=== PATIENT | female | born 1955 | race Caucasian/White ===

== ENCOUNTER 2016-11-21 14:03 | Outpatient (CLI) | payer MEDICARE, OTHER ==
[~2016-11-21] VITALS: Ht 160 cm; Wt 81.0 kg
[~2016-11-21 14:03] MED LIST: ASP81TEC PO; ATEN100T88 PO; CHOL4PAC19 PO; CLON0.5T3 PO; CPR500T PO; FENO135C PO; FURO20TA4 PO; GEMF600T PO; LISI-552 PO; LVT.1T PO; MTR250T PO; NIFE90TA4 PO; OMEG-160 PO; OMEP20CA6 PO; ONDA4TAB11 PO; PARO30TA2 PO; POTA20TA15 PO; VNL75T PO
[2016-11-21] MEDS ORDERED: ATEN50TA PO (14:24)
[2016-11-21 14:31] VITALS: BP 129/87
[2016-11-21 15:02] LABS: BASOPHILS # (AUTO) 0.1 10^3/uL (0.0-0.1); BASOPHILS % (AUTO) 1 % (0-10); EOSINOPHILS # (AUTO) 0.1 10^3/uL (0.0-0.3); EOSINOPHILS % (AUTO) 3 % (0-10); LYMPHOCYTES # (AUTO) 1.8 X 10^3 (1.0-4.0); LYMPHOCYTES % (AUTO) 34 % (12-44); MEAN CORPUSCULAR HEMOGLOBIN 31 PG (25-34); MEAN CORPUSCULAR HGB CONC 34 G/DL (32-36); MEAN CORPUSCULAR VOLUME 92 FL (80-99); MEAN PLATELET VOLUME 10.1 FL (7.4-10.4); MONOCYTES # (AUTO) 0.6 X 10^3 (0.0-1.0); MONOCYTES % (AUTO) 11 % (0-12); NEUTROPHILS # (AUTO) 2.8 X 10^3 (1.8-7.8); NEUTROPHILS % (AUTO) 52 % (42-75); PLATELET COUNT 288 10^3/uL (130-400); RED BLOOD COUNT 4.21 10^6/uL (4.35-5.85); RED CELL DISTRIBUTION WIDTH 13.1 % (10.0-14.5); WHITE BLOOD COUNT 5.4 10^3/uL (4.3-11.0)
[2016-11-21 15:19] LABS: ANION GAP 10 MMOL/L (5-14); BLOOD UREA NITROGEN 18 MG/DL (7-18); BUN/CREATININE RATIO 22; CALCIUM 9.2 MG/DL (8.5-10.1); CARBON DIOXIDE 24 MMOL/L (21-32); CHLORIDE 107 MMOL/L (98-107); CREATININE SERUM 0.81 MG/DL (0.60-1.30); GFR ESTIMATED > 60; GLUCOSE 91 MG/DL (70-105); POTASSIUM 3.3 MMOL/L (3.6-5.0); SODIUM 141 MMOL/L (135-145)
== END 2016-11-21 15:00 ==
LOC: PREOP 14:03
PROVIDERS: ATTEND Obstetrics & Gynecology
DX: Z01.812 Encounter for preprocedural laboratory examination (principal); N81.10 Cystocele, unspecified; N39.46 Mixed incontinence; N93.9 Abnormal uterine and vaginal bleeding, unspecified
CPT/HCPCS: 36415; 80048; 85025; 87081

== ENCOUNTER 2016-11-24 10:17 | Day surgery (SDC) | payer MEDICARE ==
[~2016-11-24] VITALS: Ht 160 cm; Wt 81.0 kg
[~2016-11-24 10:17] MED LIST changes: +ATEN50TA PO
[2016-11-24] MEDS ORDERED: LACTATED RINGERS 1,000 ML IV ONE ×2 (10:58→13:21)
[2016-11-24] MEDS ORDERED: SEVOFLURANE (ULTANE) 15 ML INHAL SOLN ONE ×3 (10:58→13:58)
[2016-11-24] MEDS ORDERED: proPOfol 200 MG/20 ML (DIPRIVAN) VIAL IV ONE (10:58)
[2016-11-24] MEDS ORDERED: LIDOCAINE PF 2% 5 ML (XYLOCAINE) VIAL ONE (10:58)
[2016-11-24] MEDS ORDERED: fentaNYL INJECTION 100 MCG/2 ML AMP ONE ×3 (10:59→19:09)
[2016-11-24] MEDS ORDERED: MIDAZOLAM 2 MG/2 ML (VERSED) VIAL ONE (10:59)
[2016-11-24] MEDS ORDERED: ESTRADIOL VAGINAL CREAM 42.5 GM (ESTRACE) VG ONE (11:00)
[2016-11-24 11:10] VITALS: BP 136/86
[2016-11-24] MEDS ORDERED: LACTATED RINGERS 1,000 ML IV PRN (11:13)
[2016-11-24] MEDS ORDERED: ONDANSETRON 4 MG/2 ML (SDV) Z0FRAN IVP PRN ×2 (12:15→14:30)
[2016-11-24] MEDS ORDERED: BENZOCAINE/MENTHOL (DERMOPLAST) 56 ML CAN TP PRN (12:15)
[2016-11-24] MEDS ORDERED: WATER (STERILE) FOR INJ 10 ML BTL INJ ONE (12:15)
[2016-11-24] MEDS ORDERED: KETOROLAC 30 MG/ML VIAL IVP SCH (12:15)
[2016-11-24] MEDS ORDERED: ESTROGENS CONJ IV 25 MG/5 ML (PREMARIN) VIAL IVP ONE (12:15)
--- NOTE | 2016-11-24 12:15 | Progress Note-Post Operative ---
Post-Operative Progess Note Surgeon (s)/Flame Hardening Machine Operator (s) Surgeon KAIT HECK MD Flame Hardening Machine Operator: Meredith Lyons Pre-Operative Diagnosis VAGINAL PROLAPSE, CYSTOCELE Post-Operative Diagnosis signed Procedure & Operative Findings Date of Procedure 11/24/16 Procedure Performed/Findings anterior and posterior vaginal repairs with enterocele repair as well as sacrospinous ligament suspension, Dr. Palma performed a pubovaginal sling and cystoscopy Anesthesia Type GETA Estimated Blood Loss Estimated blood loss (mL): minimal Specimens/Packing Specimens Removed none Packing: Kerfranciscax KAIT Karimi MD Nov 24, 2016 12:15
[2016-11-24] MEDS ORDERED: LEVOFLOXACIN 250 MG/50 ML IVPB 50 ML ONE (12:36)
[2016-11-24] MEDS ORDERED: metroNIDAZOLE 500MG/100ML IVPB 100 ML ONE (12:37)
--- NOTE | 2016-11-24 12:40 | Progress Note-Post Operative ---
Post-Operative Progess Note Surgeon (s)/Soap Drier Operator (s) Surgeon AIEME DUBOIS MD Soap Drier Operator: MARIA R Pre-Operative Diagnosis VAGINAL PROLAPSE, CYSTOCELE, INCONTINENCE Post-Operative Diagnosis SAME Procedure & Operative Findings Date of Procedure 11/24/16 Procedure Performed/Findings PVS AND CYSTOSCOPY Anesthesia Type GENERAL Estimated Blood Loss Estimated blood loss (mL): NEGLIGIBLE Specimens/Packing Specimens Removed N/A Packing: Kerlix gaAIMEE Baltazar MD Nov 24, 2016 12:40 pm
[2016-11-24] MEDS ORDERED: ESTROGENS CONJ IV 25 MG/5 ML (PREMARIN) VIAL ONE (13:32)
[2016-11-24] MEDS ORDERED: WATER (STERILE) FOR INJECTION 10 ML ONE (13:32)
[2016-11-24] MEDS ORDERED: MEPERIDINE (DEMEROL) INJ 50 MG/ML IVP PRN (14:30)
[2016-11-24] MEDS ORDERED: fentaNYL INJECTION 100 MCG/2 ML AMP IVP PRN (14:30)
--- NOTE | 2016-11-24 14:43 | Progress Note-Pre Operative ---
Pre-Operative Progress Note H&P Reviewed The H&P was reviewed, patient examined and no changes noted. Date Seen by Provider: Nov 24, 2016 Time Seen by Provider: 12:56 Date H&P Reviewed: Nov 24, 2016 Time H&P Reviewed: 12:58 Pre-Operative Diagnosis: vaginal prolapse/stress and incontinence/rectocele/ enterocele KAIT HECK MD Nov 24, 2016 14:43
[2016-11-24] MEDS: morphine INJ 10 MG/ML 1ML (SYR OR VIAL) IVP PRN ×2 (14:52→14:57)
[2016-11-24 15:50] VITALS: BP 135/93
[2016-11-24] MEDS ORDERED: D5 LR IV SOLUTION 1,000 ML IV ONE (16:24)
[2016-11-24] MEDS: D5 LR IV SOLUTION 1,000 ML IV SCH (16:33)
[2016-11-24] MEDS: fentaNYL INJECTION 100 MCG/2 ML AMP IVP PRN ×2 (16:33→19:17)
[2016-11-24 20:23] VITALS: BP 119/68
[2016-11-24] MEDS: oxyCODONE/APAP 10/325MG (PERCOCET 10) TABLET PO PRN (22:12)
[2016-11-25] VITALS: BP 107/68
[2016-11-25] MEDS: KETOROLAC 30 MG/ML VIAL IVP SCH ×2 (00:05→05:34)
[2016-11-25] MEDS: D5 LR IV SOLUTION 1,000 ML IV SCH (00:13)
[2016-11-25 05:30] VITALS: BP 114/76
--- NOTE | 2016-11-25 06:36 | OPERATIVE REPORT ---
DATE OF SERVICE: 11/24/2016 PREOPERATIVE DIAGNOSIS: Vaginal prolapse and cystocele with stress incontinence. POSTOPERATIVE DIAGNOSIS: Vaginal prolapse and cystocele with stress incontinence. OPERATIVE PROCEDURE: Anterior and posterior vaginal repair with enterocele repair as well as sacrospinous ligament suspension with Dr. Angeles performing a pubovaginal sling and cystoscopy. OPERATIVE DESCRIPTION: With the patient in supine position under satisfactory general anesthesia, she was repositioned in the dorsal lithotomy position in the Gadiel stirrups and prepped and draped in the usual fashion for vaginal surgery. A weighted speculum was placed in the posterior fornix of the vagina. The anterior vaginal wall was grasped just distal to the midpoint. The vaginal wall was opened with Metzenbaum scissors for approximately 2.5 cm. The dissection was carried between the vagina and the bladder to the pubic rami bilaterally and then a suture of 2-0 Vicryl was placed in the endopelvic fascia elevating the bladder and lengthening urethra. At this point, Dr. Angeles assumed care of the patient for pubovaginal sling and cystoscopy. I remained to assist. Dr. Angeles completed the pubovaginal sling and the cystoscopy with normal findings per his report on the cystoscopy. He placed a Khan catheter in the urinary bladder and left it to dependent drainage and I resumed care of the patient. Redundant anterior vaginal wall muscularis and mucosa was removed sharply. The vaginal wall was then closed with a running locked suture of 2-0 Vicryl. Good support of the bladder and urethra were evident. The pelvic catheter remained to dependent drainage and it was draining clear yellow urine. Posterior repair was then effected by placing Jihan clamps on the perineum and the hymenal ring at 5 and 7 o'clock position. An inverted triangle of skin was removed from the perineal body using as the base of the triangle the two Jihan clamps. The apex was approximately 3 cm down on the perineal body and upright triangle was removed from the posterior vaginal floor using the same base with the apex approximately 3 cm up through the posterior vaginal floor. The rectovaginal space was entered sharply and dissected bluntly to the apex of the vagina. There was an enterocele that was reduced. Dissection was carried digitally over through the right rectal pillar to the right sacrospinous ligament and ischial spine. The [place] [employer] device was used to place two sutures of 2-0 Ethibond in the sacrospinous ligament approximately 2.5 and 3 cm medial to the ischial spine. Both arms of those sutures were brought out through the apex of the vaginal cuff and tagged and held long for tying later. The rectovaginal space was now obliterated with sutures of 2-0 Vicryl after first reducing the enterocele and then ligating with 2-0 Vicryl pursestring fashion. The perineal body was restored with additional sutures of 2-0 Vicryl. Digital rectal exam during the dissection and during the repair confirmed no stricture or stenosis of the rectum and no sutures in to or through the rectal mucosa. Redundant posterior vaginal muscularis mucosa was now removed sharply. The vaginal wall was closed with a running locked suture of 2-0 Vicryl. That closure was continued past the hymenal ring down on the perineal body and then back up to the subcu to the hymenal ring where the suture was tied. The sacrospinous ligament suspension sutures were now tied. As each was tied, the apex of the vagina was brought well back up into the pelvis. Those sutures were cut short. The vagina was filled with Estrace vaginal cream and a pack of Kerlix gauze was placed. The Khan catheter was left to dependent drainage. Digital rectal exam was repeating finding no sutures into it through the rectal mucosa. No stricture or stenosis of the rectum. Sponge and needle counts were correct. Estimated blood loss was between 50 and 100 mL. The patient tolerated the procedure well, now uneventfully awakened from general anesthesia and transferred to the recovery room in stable condition. Job ID: [id number] DocumentID: [id number] Dictated Date: 11/24/2016 14:22:55 Lockstitch Sleeve Setter Date: 11/25/2016 06:35:13 Dictated By: KAIT HECK MD
[2016-11-25] MEDS: ONDANSETRON 8 MG (ZOFRAN) ORAL DISSOLVE TAB PO PRN ×4 (06:52→19:24)
--- NOTE | 2016-11-25 07:23 | Progress Note-Standard ---
Standard Progress Note Progress Notes/Assess & Plan Date Seen by Provider: Nov 25, 2016 Time Seen by Provider: 07:22 Progress/Assessment & Plan this patient is without complaint except for some nausea that she has experienced only this morning. Patient has good pain control. She denies headache, shortness of breath, chest pain. Her Khan catheter removed at 6 a.m. and she has not voided as of yet Vital Signs Date Time Temp Pulse Resp B/P (MAP) Pulse Ox O2 Delivery O2 Flow Rate FiO2 11/25/16 05:30 96.5 62 18 114/76 98 Room Air 11/25/16 00:00 97.6 60 18 107/68 Room Air 11/24/16 20:23 98.2 85 18 119/68 92 Room Air 11/24/16 15:50 97.4 82 16 135/93 94 Room Air 11/24/16 15:22 98.0 11/24/16 15:22 98.0 11/24/16 15:22 98.0 11/24/16 15:15 98.0 11/24/16 14:57 98.0 11/24/16 14:52 98.0 11/24/16 11:10 97.7 58 18 136/86 98 Room Air Vital signs are stable. Patient is afebrile. Abdomen is benign Extremities show no clubbing cyanosis. There is no Homans sign. Pelvic exam is deferred assessment and plan is operative day number 1 doing well. Plan will be for discharge home when patient is ambulating, voiding, tolerating oral intake well , and pain is controlled with oral medication. Final Diagnosis vaginal prolapse/stress urinary incontinence KAIT HECK MD Nov 25, 2016 7:23 am
[2016-11-25] MEDS ORDERED: OXYC-465 PO (07:24)
[2016-11-25] MEDS ORDERED: IBUP-1780 PO (07:24)
[2016-11-25] MEDS ORDERED: DOCU100C37 PO (07:24)
--- NOTE | 2016-11-25 07:26 | Discharge Instructions ---
Discharge Instructions Discharge Medications New, Converted or Re-Newed RX: RX on Chart Patient Instructions Patient Instructions: as directed Return to The Hospital For: as directed Activity & Diet Discharge Diet: No Restrictions Activity as Tolerated: No Orders-Post D/C & Referrals Follow Up Appt: Call to make follow up appt. for patient in 4 weeks. Activity: Rest for 24 hours, than as tolerated. Please call in RX to patient pharmacy. Diet: As tolerated-Clear Liquids only if nauseated. Tomorrow, may shower or tub bathe as desired. No driving for 24 hours, no alcoholic beverages for 24 hours, and nothing per vagina (no tampons, douching, or intercourse) for 4 weeks. Patient to return to the clinic as soon as possible for: Temperature greater than 101F, Severe Pain, Foul discharge from incision or vagina, Excessive Bleeding (more than a period). KAIT HECK MD Nov 25, 2016 7:26 am
--- NOTE | 2016-11-25 07:32 | Progress Note-Post Operative ---
Post-Operative Progess Note Surgeon (s)/Drama Therapist (s) Surgeon KAIT HECK MD Drama Therapist: Meredith Lyons Pre-Operative Diagnosis vaginal prolapse/stress and incontinence/rectocele/enterocele Post-Operative Diagnosis same Procedure & Operative Findings Date of Procedure 11/25/16 Procedure Performed/Findings anterior and posterior vaginal repairs with enterocele repair as well as sacrospinous ligament suspension concurrent with pubovaginal sling and cystoscopy by Dr. Palma Anesthesia Type GETA Estimated Blood Loss Estimated blood loss (mL): between 50 and 100 cc Specimens/Packing Specimens Removed vaginal apex epidermal inclusion cyst Packing: Kerlix gaKAIT Ruelas MD Nov 25, 2016 7:32 am
[2016-11-25] MEDS: DOCUSATE SODIUM 100 MG (COLACE) CAP PO SCH ×2 (08:10→21:54)
[2016-11-25] MEDS: oxyCODONE/APAP 10/325MG (PERCOCET 10) TABLET PO PRN ×2 (08:10→15:05)
[2016-11-25 11:45] VITALS: BP 119/73
[2016-11-25] MEDS: IBUPROFEN 800 MG (MOTRIN) TAB PO SCH ×2 (12:39→21:54)
--- NOTE | 2016-11-25 13:08 | Anesthesia-General Post-Op ---
General Patient Condition Mental Status/LOC: Same as Preop Cardiovascular: Satisfactory Nausea/Vomiting: Present Respiratory: Satisfactory Pain: Controlled Complications: Absent Post Op Complications Complications None Follow Up Care/Instructions Patient Instructions None needed. Anesthesia/Patient Condition Patient Condition Patient is doing well, no complaints, stable vital signs, no apparent adverse anesthesia problems. No complications reported per nursing. DANNY REYES CRNA Nov 25, 2016 13:08
--- NOTE | 2016-11-25 14:25 | OPERATIVE REPORT ---
DATE OF SERVICE: 11/24/2016 PREOPERATIVE DIAGNOSIS ON MY PART: Urinary incontinence. POSTOPERATIVE DIAGNOSIS ON MY PART: Urinary incontinence. OPERATION PERFORMED: Pubovaginal sling and cystoscopy. SURGEON: Aimee Dubois MD VICE PRESIDENT OF CONTRACTS: Rell Johnson MD COMPLICATIONS: None. PROCEDURE: After Dr. Johnson performed the first part of the surgery that he would dictate, I went ahead and passed the pubovaginal sling on both sides using the described technique. Sling was sitting nicely under the mid urethra with no twisting, no tension, passage of a curved hemostat easily between it and the underlying tissue. I removed the catheter and performed cystoscopy to confirm the integrity of the bladder, urethral orifices, and the presence of the sling under the mid urethra. I left the bladder half full, removed the cystoscope, performed the manual Valsalva maneuver that was negative. I reinserted the Khan catheter and Dr. Johnson performed the rest of the surgery that he will dictate. ESTIMATED BLOOD LOSS ON MY PART: Negligible. Job ID: [id number] DocumentID: [id number] Dictated Date: 11/24/2016 13:36:41 Harness Fitter Date: 11/25/2016 04:12:31 Dictated By: AIMEE DUBOIS MD
[2016-11-25] MEDS ORDERED: D5 LR IV SOLUTION 1,000 ML IV ONE (16:15)
[2016-11-25] MEDS ORDERED: ONDANSETRON 4 MG/2 ML (SDV) Z0FRAN IVP ONE (16:15)
[2016-11-25 17:30] VITALS: BP 101/64
[2016-11-26] VITALS: BP 96/65
[2016-11-26 06:00] VITALS: BP 91/61
[2016-11-26] MEDS: KETOROLAC 30 MG/ML VIAL IVP SCH (08:18)
--- NOTE | 2016-11-26 08:21 | Progress Note-Standard ---
Standard Progress Note Progress Notes/Assess & Plan Date Seen by Provider: Nov 26, 2016 Time Seen by Provider: 08:19 Progress/Assessment & Plan this patient is without complaint except for some nausea that she has experienced only this morning. Patient has good pain control. She denies headache, shortness of breath, chest pain. Her Khan catheter removed at 6 a.m. and she has not voided as of yet Vital Signs Date Time Temp Pulse Resp B/P (MAP) Pulse Ox O2 Delivery O2 Flow Rate FiO2 11/25/16 05:30 96.5 62 18 114/76 98 Room Air 11/25/16 00:00 97.6 60 18 107/68 Room Air 11/24/16 20:23 98.2 85 18 119/68 92 Room Air 11/24/16 15:50 97.4 82 16 135/93 94 Room Air 11/24/16 15:22 98.0 11/24/16 15:22 98.0 11/24/16 15:22 98.0 11/24/16 15:15 98.0 11/24/16 14:57 98.0 11/24/16 14:52 98.0 11/24/16 11:10 97.7 58 18 136/86 98 Room Air Vital signs are stable. Patient is afebrile. Abdomen is benign Extremities show no clubbing cyanosis. There is no Homans sign. Pelvic exam is deferred assessment and plan is operative day number 1 doing well. Plan will be for discharge home when patient is ambulating, voiding, tolerating oral intake well , and pain is controlled with oral medication. November 26, 2016 Patient is without complaint. She is ambulating, voiding, tolerating by mouth well, has good pain control. The nausea she was experiencing last evening has now resolved. She does feel ready for discharge. Vital Signs Date Time Temp Pulse Resp B/P (MAP) Pulse Ox O2 Delivery O2 Flow Rate FiO2 11/26/16 06:00 97.0 71 18 91/61 90 Room Air 11/26/16 00:00 98.4 62 18 96/65 92 Room Air 11/25/16 17:30 97.7 59 18 101/64 Room Air 11/25/16 11:45 98.3 51 20 119/73 99 Room Air vital signs are stable. Patient is afebrile. Abdomen is benign. Extremities show no clubbing or cyanosis. There is no Homans sign. Pelvic exam is deferred Assessment and plan postoperative day 2 doing well. plan had been for discharge yesterday have the patient nausea was persistent and unrelenting. Her discharge was held for symptomatic management. Postoperative nausea has resolved. We will allow discharge home. Final Diagnosis vaginal prolapse and stress urinary incontinence KAIT HECK MD Nov 26, 2016 8:21 am
[2016-11-26 08:27] VITALS: BP 114/73
[2016-11-26] MEDS: IBUPROFEN 800 MG (MOTRIN) TAB PO SCH (08:30)
[2016-11-26] MEDS: oxyCODONE/APAP 10/325MG (PERCOCET 10) TABLET PO PRN ×2 (08:30→09:30)
[2016-11-26] MEDS: DOCUSATE SODIUM 100 MG (COLACE) CAP PO SCH (09:30)
== END 2016-11-26 09:00 | disposition home or self-care (01) ==
LOC: SDC 10:17 → WS 15:50 → SDC 11-26 09:00
PROVIDERS: ATTEND Obstetrics & Gynecology
DX: N81.4 Uterovaginal prolapse, unspecified (principal); N39.3 Stress incontinence (female) (male); I10 Essential (primary) hypertension; E78.5 Hyperlipidemia, unspecified; G47.33 Obstructive sleep apnea (adult) (pediatric); Z86.73 Personal history of transient ischemic attack (TIA), and cerebral infarction without residual deficits; F32.9 Major depressive disorder, single episode, unspecified; F41.9 Anxiety disorder, unspecified; E03.9 Hypothyroidism, unspecified; Z79.899 Other long term (current) drug therapy
CPT/HCPCS: 94664

== ENCOUNTER 2017-02-09 05:29 | Outpatient (CLI) | payer MEDICARE ==
[~2017-02-09] VITALS: Ht 160 cm; Wt 71.4 kg
[~2017-02-09 05:29] MED LIST changes: +DOCU100C37 PO; +IBUP-1780 PO; +OXYC-465 PO
[2017-02-09] MEDS ORDERED: NIFE90TA PO (11:23)
[2017-02-09] MEDS ORDERED: ASPI-999 PO (11:23)
[2017-02-09] MEDS ORDERED: CLON0.5T3 PO (11:23)
[2017-02-09] MEDS ORDERED: LEVO100T7 PO (11:23)
[2017-02-09] MEDS ORDERED: POTA-51 PO (11:23)
[2017-02-09] MEDS ORDERED: FURO20TA4 PO (11:23)
== END 2017-02-09 11:31 ==
LOC: PREOP 05:29
PROVIDERS: ATTEND Surgery
DX: Z01.818 Encounter for other preprocedural examination (principal); K21.9 Gastro-esophageal reflux disease without esophagitis; T85.615A Breakdown (mechanical) of other nervous system device, implant or graft, initial encounter

== ENCOUNTER 2017-02-15 06:56 | Day surgery (SDC) | payer MEDICARE ==
[~2017-02-15] VITALS: Ht 160 cm; Wt 71.4 kg
[~2017-02-15 06:56] MED LIST changes: +ASPI-999 PO; +LEVO100T7 PO; +NIFE90TA PO; +POTA-51 PO
[2017-02-15] MEDS ORDERED: BUP/EPI 0.5% 1:200,000 (MARCAINE) 10ML VIAL IJ ONE ×2 (07:05)
[2017-02-15] MEDS ORDERED: CLINDAMYCIN 600 MG/NS 50 ML IVPB IV ONE ×2 (07:30)
[2017-02-15] MEDS ORDERED: proPOfol 200 MG/20 ML (DIPRIVAN) VIAL IV ONE (07:43)
[2017-02-15] MEDS ORDERED: ROCURONIUM 50 MG/5 ML (ZEMURON) VIAL IV ONE (07:43)
[2017-02-15] MEDS ORDERED: fentaNYL INJECTION 100 MCG/2 ML AMP ONE (07:43)
[2017-02-15] MEDS ORDERED: LIDOCAINE PF 2% 5 ML (XYLOCAINE) VIAL ONE (07:43)
[2017-02-15] MEDS ORDERED: SEVOFLURANE (ULTANE) 15 ML INHAL SOLN ONE (07:43)
[2017-02-15] MEDS ORDERED: DEXAMETHASONE 10 MG/ML (DECADRON) 1 ML VIAL ONE (07:43)
[2017-02-15] MEDS ORDERED: MIDAZOLAM 2 MG/2 ML (VERSED) VIAL ONE (07:44)
--- NOTE | 2017-02-15 07:50 | Progress Note-Pre Operative ---
Pre-Operative Progress Note H&P Reviewed The H&P was reviewed, patient examined and no changes noted. Date Seen by Provider: Feb 15, 2017 Time Seen by Provider: 07:40 Date H&P Reviewed: Feb 15, 2017 Time H&P Reviewed: 07:45 Pre-Operative Diagnosis: Reflux and Non-functioning bladder stimulator JASON BOSTON APRN Feb 15, 2017 7:50 am
[2017-02-15] MEDS ORDERED: HYDROcodone/APAP 5 MG/325 MG (LORTAB) TAB PO ONE (08:00)
[2017-02-15] MEDS ORDERED: morphine INJ 10 MG/ML 1ML (SYR OR VIAL) IVP PRN ×2 (08:00→10:15)
[2017-02-15] MEDS ORDERED: ACETAMINOPHEN 325 MG TABLET/CAPLET (TYLENOL) PO PRN (08:00)
[2017-02-15] MEDS ORDERED: ONDANSETRON 4 MG/2 ML (SDV) Z0FRAN IVP PRN ×2 (08:00→10:15)
[2017-02-15] MEDS: LACTATED RINGERS 1,000 ML IV PRN ×2 (08:02→10:30)
[2017-02-15 08:07] VITALS: BP 117/72
[2017-02-15] MEDS ORDERED: LACTATED RINGERS 1,000 ML IV PRN (08:14)
[2017-02-15] MEDS ORDERED: NEOSTIGMINE (BLOXIVERZ ) 1 MG/1ML 10 ML VIAL ONE (09:27)
[2017-02-15] MEDS ORDERED: GLYCOPYRROLATE 0.2 MG/ML (ROBINUL) 2 ML VIAL ONE (09:27)
--- NOTE | 2017-02-15 10:08 | Progress Note-Post Operative ---
Post-Operative Progess Note Surgeon (s)/Assistant Pressman (s) Surgeon ARPAN YOUNGBLOOD MD Assistant Pressman: rhonda dale BIOLOGY DEPARTMENT CHAIR Pre-Operative Diagnosis Reflux and Non-Functioning Bladder Stimulator Post-Operative Diagnosis reflux esophagitis(class B), no HH, mod-severe gastritis. medtronic stimulator, no infection. Procedure & Operative Findings Date of Procedure 02/15/17 Procedure Performed/Findings EGD with bx. explantation bladder neurostimulator. Anesthesia Type GET Estimated Blood Loss Estimated blood loss (mL): minimal Specimens/Packing Specimens Removed GE jxn, antrum ARPAN YOUNGBLOOD MD Feb 15, 2017 10:08 am
[2017-02-15] MEDS ORDERED: HYDR-3816 PO (10:10)
[2017-02-15] MEDS ORDERED: PANT40TA2 PO (10:10)
--- NOTE | 2017-02-15 10:11 | Discharge Inst-Surgical ---
D/C Lap Instructions-KIDO New, Converted, or Re-Newed RX: RX on Chart Follow Up Appt in 6 weeks Activity as tolerated High Fiber Diet 25g or more per day Avoid Alcohol, Caffeine, Spicy [place] and Acid foods. Drink 64 fluid oz or more of fluids per day. Symptoms to Report: Fever over 101 degree F, Nausea/Vomiting If any problems/questions: Contact your physician or go to Emergency Room ARPAN YOUNGBLOOD MD Feb 15, 2017 10:11 am
[2017-02-15] MEDS ORDERED: MEPERIDINE (DEMEROL) INJ 50 MG/ML IVP PRN (10:15)
[2017-02-15 11:15] VITALS: BP 113/87
[2017-02-15 11:45] VITALS: BP 129/91
[2017-02-15 12:15] VITALS: BP 132/89
[2017-02-15 12:35] VITALS: BP 132/89
--- NOTE | 2017-02-15 13:24 | OPERATIVE REPORT ---
DATE OF SERVICE: 02/15/2017 ATTENDING PRIMARY CARE PHYSICIAN: Dr. Yasir Solares. PREOPERATIVE DIAGNOSES: History of urinary incontinence with a nonfunctioning bladder stimulator, gastroesophageal reflux disease. POSTOPERATIVE DIAGNOSES: History of urinary incontinence with a nonfunctioning bladder stimulator, gastroesophageal reflux disease. Reflux esophagitis class B. No hiatal hernia, moderate to severe gastritis. PROCEDURE: 1. Explantation of bladder stimulator. 2. EGD with biopsy. SURGEON: Dr. Youngblood. LENS INSERTER: Geo Garcia APRN. ANESTHESIA: General endotracheal. ESTIMATED BLOOD LOSS: Minimal. FINDINGS: Medtronic neurostimulator, no infection. Reflux esophagitis class B. No hiatal hernia. Moderate to severe gastritis. DISPOSITION: The patient tolerated the procedure well. INDICATIONS: The patient is a 61-year-old female who has had issues with gastroesophageal reflux disease. She underwent a laparoscopic Hill gastropexy in 2001 and has done well since that time. She reports that she does have occasional episodes of reflux; however, does have an epigastric burning sensation as well as a crampy pain which has worsened over time. She also has had a history of urinary incontinence and underwent bladder stimulator implantation in 2013, which she reports has been nonfunctional for years. Since that time, she has had a pubovaginal sling placement as well as anterior and posterior vaginal repair and enterocele repair with sacrospinous ligament suspension 11/2016. Since that time, she has not had any issues with urinary incontinence. She has lost a significant amount of weight as well and would like to have the nerve stimulator removed. DESCRIPTION OF PROCEDURE: The patient was brought to the operating room and laid supine on the table. After adequate IV pain and sedating medications and general endotracheal intubation, the patient was placed in the left lateral decubitus position. The back and buttocks were then prepped and draped in standard surgical fashion. 0.5% Marcaine with epinephrine was used to anesthetize the overlying skin to the stimulator. The same previous transverse skin incision was made using a 15 blade. Subcutaneous tissue was then dissected using electrocautery. The capsule was identified and opened using electrocautery. A Medtronic neurostimulator was identified. This was removed completely and intact. There was a single wire identified, which was coated. This was cut and tagged with small clips in the need for eventual complete removal if symptomatic. Good hemostasis was observed. The subcutaneous tissue was then closed in layers using 3-0 Vicryl interrupted sutures. Skin was closed using 4-0 Monocryl running subcuticular suture. The wound was then cleaned and covered with Dermabond. We then proceeded with the EGD portion of the procedure. The endoscope was placed in the mouth, visualizing the pharynx and hypopharyngeal region. Vocal cords, epiglottis and vallecula identified and appeared to be normal. The endotracheal tube was visualized going through the vocal cords. The endoscope was then intubated into the esophageal opening and esophagus insufflated. The endoscope was then advanced through the 1st, 2nd and 3rd portions of the esophagus. At the level of the GE junction, a reflux esophagitis class B identified. There were no ulcers or strictures identified in this region. A biopsy was taken with forceps with visualization of good hemostasis. The endoscope was then advanced in the stomach and the endoscope retroflexed visualizing no hiatal hernia. There were changes consistent with a previous antireflux procedure, which were intact. A moderate to severe gastritis was noted more towards the antrum of the stomach. There were small superficial erosions. No formal ulcers, polyps or any neoplasms. A biopsy was taken of the antrum with forceps with visualization of good hemostasis. The endoscope was then advanced to the pylorus and the first and second portions of the duodenum, which appeared normal with no distal obstructions. The endoscope was then slowly withdrawn while taking a second look and suctioning of residual air with no additional findings. The patient tolerated the procedure well. We will start her on Protonix 40 mg daily, as well as the necessary lifestyle and diet accommodation including small and more frequent meals, avoidance of eating at night as well as head elevation while lying supine. She also needs to avoid caffeinated beverages, spicy, greasy and acidic foods. Job ID: [id number] DocumentID: [id number] Dictated Date: 02/15/2017 10:25:54 Lion Tamer Date: 02/15/2017 13:23:41 Dictated By: ARPAN YOUNGBLOOD MD
== END 2017-02-15 12:35 | disposition home or self-care (01) ==
LOC: SDC 06:56
PROVIDERS: ATTEND Surgery
DX: K21.0 Gastro-esophageal reflux disease with esophagitis (principal); K29.70 Gastritis, unspecified, without bleeding; T85.615A Breakdown (mechanical) of other nervous system device, implant or graft, initial encounter; I10 Essential (primary) hypertension; E78.00 Pure hypercholesterolemia, unspecified; E03.9 Hypothyroidism, unspecified; G47.33 Obstructive sleep apnea (adult) (pediatric); F32.9 Major depressive disorder, single episode, unspecified; F41.9 Anxiety disorder, unspecified; Z86.73 Personal history of transient ischemic attack (TIA), and cerebral infarction without residual deficits; Z79.82 Long term (current) use of aspirin; Z79.899 Other long term (current) drug therapy
CPT/HCPCS: 87081

== ENCOUNTER 2017-04-11 09:59 | Emergency (ER) | payer MEDICARE ==
[~2017-04-11] VITALS: Ht 160 cm; Wt 67.4 kg
[~2017-04-11 09:59] MED LIST changes: +HYDR-3816 PO; +PANT40TA2 PO
--- NOTE | 2017-04-11 11:30 | Diagnostic Imaging Report ---
INDICATION: Right anterior rib pain. TIME OF EXAM: 11:38 AM. FINDINGS: The findings are suggestive of a fracture involving the anterior aspect of the right fifth rib which is minimally displaced. No other fractures are seen. No parenchymal contusion, effusion, or pneumothorax is seen. IMPRESSION: The findings are suggestive of a right anterior fifth rib fracture. Dictated by: Dictated on workstation # [id number]
[2017-04-11] MEDS ORDERED: ACHD5005 PO (12:55)
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
[2017-04-11 13:03] VITALS: BP 132/90
== END 2017-04-11 13:03 | disposition home or self-care (01) ==
LOC: EDUNIT# 09:59 → ER 10:01
DX: S22.31XA Fracture of one rib, right side, initial encounter for closed fracture (principal); G47.33 Obstructive sleep apnea (adult) (pediatric); I10 Essential (primary) hypertension; K21.9 Gastro-esophageal reflux disease without esophagitis; F32.9 Major depressive disorder, single episode, unspecified; F41.9 Anxiety disorder, unspecified; Z86.73 Personal history of transient ischemic attack (TIA), and cerebral infarction without residual deficits; Z79.82 Long term (current) use of aspirin; Z87.19 Personal history of other diseases of the digestive system; Z96.653 Presence of artificial knee joint, bilateral; Z90.710 Acquired absence of both cervix and uterus; X50.0XXA Overexertion from strenuous movement or load, initial encounter
CPT/HCPCS: 71100; 99282

== ENCOUNTER → 2017-11-20 | Outpatient (CLI) | payer MEDICARE, MEDICAID, OTHER ==
[~2017-11-20] MED LIST changes: +ACHD5005 PO; +CLON0.5T13 PO; +HYDR-34 PO; -HYDR-3816 PO; +IOHEXOL 350 MG/ML 100 ML (OMNIPAQUE 350) VIAL IV ONE; +NS 250 ML (IVPB) BAG IV ONE
[2017-11-20 13:05] LABS: ALANINE AMINOTRANSFERASE 10 U/L (0-55); ALBUMIN 3.9 GM/DL (3.2-4.5); ALKALINE PHOSPHATASE 69 U/L (40-136); BILIRUBIN,TOTAL 0.6 MG/DL (0.1-1.0); BUN/CREATININE RATIO 28; CALCIUM 9.4 MG/DL (8.5-10.1); CARBON DIOXIDE 26 MMOL/L (21-32); CHLORIDE 104 MMOL/L (98-107); CREATININE SERUM 0.86 MG/DL (0.60-1.30); GFR ESTIMATED > 60; GLUCOSE 101 MG/DL (70-105); POTASSIUM 3.7 MMOL/L (3.6-5.0); SODIUM 139 MMOL/L (135-145); TOTAL PROTEIN 7.1 GM/DL (6.4-8.2)
--- NOTE | 2017-11-20 14:03 | Diagnostic Imaging Report ---
PROCEDURE: CT abdomen and pelvis with contrast. TECHNIQUE: Multiple contiguous axial images were obtained through the abdomen and pelvis after administration of intravenous contrast. INDICATION: Lower abdominal pain for two months. COMPARISON: Comparison is made with prior CT from 10/04/2011. FINDINGS: The lung bases are clear. The patient has developed a cyst in the left lobe of the liver measuring 3.9 x 3.1 cm. No other liver mass is identified. The gallbladder is surgically absent. Previously noted pneumobilia is again seen but slightly less prominent than prior. No biliary ductal dilatation is identified. The pancreas and spleen are unremarkable. No adrenal mass is identified. The kidneys are unremarkable. Aorta is nonaneurysmal. The small and large bowel loops are normal caliber. No definite central retroperitoneal or mesenteric lymphadenopathy is seen. There is no ascites. The bladder is decompressed. Bony structures are nonacute. IMPRESSION: 1. Hepatic cyst, new since CT from 2011. Minimal pneumobilia is again noted. 2. Otherwise, unremarkable CT of the abdomen and pelvis. No acute feature is detected. Dictated by: Dictated on workstation # [id number]
== END ==
LOC: RAD 12:28
PROVIDERS: ATTEND Family Medicine
DX: K76.89 Other specified diseases of liver (principal); N28.89 Other specified disorders of kidney and ureter; Z90.49 Acquired absence of other specified parts of digestive tract
CPT/HCPCS: 36415; 74177; 80053

== ENCOUNTER 2018-08-11 08:11 | Emergency (ER) | payer MEDICARE, MEDICAID | END 2018-08-11 08:36 | disposition home or self-care (01) | LOC: ER 08:11 ==

== ENCOUNTER 2019-02-21 21:01 | Emergency (ER) | payer MEDICARE, MEDICAID ==
[~2019-02-21] VITALS: Ht 160 cm; Wt 119.5 kg
[~2019-02-21 21:01] MED LIST changes: -CLON0.5T13 PO; +CLON0.5T4 PO; -IOHEXOL 350 MG/ML 100 ML (OMNIPAQUE 350) VIAL IV ONE; -NS 250 ML (IVPB) BAG IV ONE
[2019-02-21] MEDS ORDERED: FAMOTIDINE 20MG/2ML IV (PEPCID) ONE (21:09)
[2019-02-21] MEDS ORDERED: diphenhydrAMINE 50 MG/ML INJ (BENADRYL) ONE (21:09)
[2019-02-21] MEDS ORDERED: ASPIRIN 81 MG CHEW (CHILDREN'S ASA) ONE (21:09)
[2019-02-21] MEDS ORDERED: NITROGLYCERIN 0.4 MG SL TABS BTL 25'S SL ONE (21:09)
[2019-02-21] MEDS ORDERED: NS IV 500 ML 500 ML IV ONE (21:14)
[2019-02-21] MEDS ORDERED: ONDANSETRON 4 MG/2 ML (SDV) Z0FRAN IVP ONE (21:15)
[2019-02-21] MEDS ORDERED: LORATADINE (CLARITIN) 10 MG TAB PO ONE (21:15)
[2019-02-21] MEDS ORDERED: NITROGLYCERIN 0.4 MG SL TABS BTL 25'S SL PRN (21:15)
[2019-02-21] MEDS ORDERED: ASPIRIN 81 MG CHEW (CHILDREN'S ASA) PO ONE (21:15)
[2019-02-21] MEDS ORDERED: diphenhydrAMINE 50 MG/ML INJ (BENADRYL) IVP ONE (21:15)
[2019-02-21] MEDS ORDERED: FAMOTIDINE 20MG/2ML IV (PEPCID) IVP ONE (21:15)
--- NOTE | 2019-02-21 21:16 | ED Chest Pain ---
General Stated Complaint: ALLERGIC REACTION,TROUBLE BREATHING Source: patient, other Exam Limitations: no limitations History of Present Illness Date Seen by Provider: Feb 21, 2019 Time Seen by Provider: 21:01 Initial Comments Patient resents to ER by private conveyance with her significant other chief complaint that she for 1 day has been having some nausea vomiting diarrhea symptoms. About a month ago she had gastroenteritis and colitis viral and she took some echinacea [id number] herbal supplement animated better so she tried again today. Approximately 15 minutes after she took the medication she st arted feeling her throat swelling her lip swelling and began to experience mild shortness of breath left-sided chest pain nonradiating and left upper quadrant abdominal pain. She has had diarrhea times one today and has the urge to go again. She has nausea. She's had no fevers or chills. She has a history of CVA and is followed by Dr. Gomez but no stents or history of [place]. She does have hypertension, hyperlipidemia. Not a smoker. Allergies and Home Medications Allergies Coded Allergies: Sulfa (Sulfonamide Antibiotics) (Verified Allergy, Unknown, 02/09/17) niacin (Verified Allergy, Unknown, 02/09/17) penicillin G (Verified Allergy, Unknown, 02/09/17) Home Medications Aspirin 81 Mg Tab.chew, 81 MG PO DAILY, (Reported) Clonazepam 0.5 Mg Tablet, 0.5 MG PO BID, (Reported) Furosemide 20 Mg Tablet, 20 MG PO DAILY, (Reported) Gemfibrozil Unknown Strength Tablet, 600 MG PO BID, (Reported) Hydrocodone Bit/Acetaminophen 1 Each Tablet, 1-2 EACH PO Q4H Prescribed by: ARPAN YOUNGBLOOD on 02/15/17 1010 Hydrocodone Bit/Acetaminophen 1 Tab Tab, 1-2 EACH PO Q6H PRN for BREAKTHROUGH PAIN Prescribed by: RYLIE GALDAMEZ on 04/11/17 1255 Levothyroxine Sodium 100 Mcg Tablet, 100 MCG PO DAILY, (Reported) Lisinopril 20 Mg Tablet, 20 MG PO DAILY, (Reported) Nifedipine 90 Mg Tab.er.24, 90 MG PO DAILY, (Reported) Ondansetron 4 Mg Tab.rapdis, 4 MG PO Q6H PRN for NAUSEA/VOMITING Prescribed by: RYLIE GALDAMEZ on 02/21/19 2301 Pantoprazole Sodium 40 Mg Tablet.dr, 40 MG PO DAILY Prescribed by: ARPAN YOUNGBLOOD on 02/15/17 1010 Potassium Chloride 20 Meq Tablet.er, 20 MEQ PO BID, (Reported) Venlafaxine HCl 75 Mg Tab, 75 MG PO BID, (Reported) Patient Home Medication List Home Medication List Reviewed: Yes Review of Systems Review of Systems Constitutional: No chills, No fever; malaise EENTM: No Blurred Vision, No Double Vision Respiratory: Denies Cough, Denies Shortness of Air Cardiovascular: See HPI, Chest Pain; Denies Edema Gastrointestinal: Denies Constipated; Diarrhea, Nausea, Poor Fluid Intake, Vomiting Genitourinary: Denies Burning, Denies Discharge Musculoskeletal: No back pain, No joint pain Skin: No pruritus, No rash Psychiatric/Neurological: Denies Anxiety, Denies Depressed Past Mejydno-Wqcnrq-Tgbzrl Hx Patient Social History Alcohol Use: Denies Use Recreational Drug Use: No Smoking Status: Never a Smoker Recent Foreign Travel: No Contact w/Someone Who Travel: No Recent Hopitalizations: No (NOV 2016-ANTERIOR REPAIR, [place]) Immunizations Up To Date Tetanus Booster (TDap): Unknown Date of Influenza Vaccine: Dec 27, 2015 Seasonal Allergies Seasonal Allergies: No Past Medical History Surgeries: Yes ( BILAT TOTAL KNEE REPLACEMENTS, BREAST REDUCTION, CATARACTS) Bladder Surgery, Gallbladder, Hysterectomy, Rectal Respiratory: No Sleep Apnea Currently Using CPAP: No Cardiac: Yes Hypertension Neurological: Yes (1984-AFTER HYSTERECTOMY) Stroke Reproductive Disorders: No 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 8.0oz. 77.317791ib; 27.9 BMI Method:Stated General Appearance: WD/WN, Anxious, Obese HEENT: PERRL/EOMI, TMs Normal, Normal ENT Inspection (uvula without significant swelling), Pharynx Normal, Moist Mucous Membranes, Other (mild swelling of the upper lip) Neck: Full Range of Motion, Normal Inspection, Supple Respiratory: No Chest Non Tender (left chest wall and left abdomen very tender to direct palpation.); Lungs Clear, Normal Breath Sounds, No Accessory Muscle Use, No Respiratory Distress Cardiovascular: Regular Rate, Rhythm, Normal Peripheral Pulses Gastrointestinal: Normal Bowel Sounds, Soft, Guarding, Tenderness (epigastric and left upper quadrant abdomen and left lower quadrant tender palpation) Extremity: Normal Capillary Refill, Normal Inspection, No Pedal Edema Neurologic/Psychiatric: Alert, Oriented x3 Skin: Normal Color, Warm/Dry Progress/Results/Core Measures Results/Orders Lab Results Laboratory Tests Test 02/21/19 21:20 02/21/19 23:37 Range/Units White Blood Count 5.8 4.3-11.0 10^3/uL Red Blood Count 4.46 4.35-5.85 10^6/uL Hemoglobin 12.6 11.5-16.0 G/DL Hematocrit 38 35-52 % Mean Corpuscular Volume 85 80-99 FL Mean Corpuscular Hemoglobin 28 25-34 PG Mean Corpuscular Hemoglobin Concent 33 32-36 G/DL Red Cell Distribution Width 14.5 10.0-14.5 % Platelet Count 344 130-400 10^3/uL Mean Platelet Volume 9.8 7.4-10.4 FL Neutrophils (%) (Auto) 52 42-75 % Lymphocytes (%) (Auto) 30 12-44 % Monocytes (%) (Auto) 14 H 0-12 % Eosinophils (%) (Auto) 4 0-10 % Basophils (%) (Auto) 1 0-10 % Neutrophils # (Auto) 3.0 1.8-7.8 X 10^3 Lymphocytes # (Auto) 1.7 1.0-4.0 X 10^3 Monocytes # (Auto) 0.8 0.0-1.0 X 10^3 Eosinophils # (Auto) 0.2 0.0-0.3 10^3/uL Basophils # (Auto) 0.1 0.0-0.1 10^3/uL Prothrombin Time 12.7 12.2-14.7 SEC INR Comment 0.9 0.8-1.4 Activated Partial Thromboplast Time 20 L 24-35 SEC Sodium Level 141 135-145 MMOL/L Potassium Level 3.6 3.6-5.0 MMOL/L Chloride Level 106 98-107 MMOL/L Carbon Dioxide Level 21 21-32 MMOL/L Anion Gap 14 5-14 MMOL/L Blood Urea Nitrogen 16 7-18 MG/DL Creatinine 1.15 0.60-1.30 MG/DL Estimat Glomerular Filtration Rate 47 BUN/Creatinine Ratio 14 Glucose Level 130 H 70-105 MG/DL Calcium Level 9.3 8.5-10.1 MG/DL Corrected Calcium 9.3 8.5-10.1 MG/DL Magnesium Level 2.1 1.6-2.4 MG/DL Total Bilirubin 0.4 0.1-1.0 MG/DL Aspartate Amino Transf (AST/SGOT) 19 5-34 U/L Alanine Aminotransferase (ALT/SGPT) 15 0-55 U/L Alkaline Phosphatase 84 40-136 U/L Myoglobin 40.8 10.0-92.0 NG/ML Troponin I < 0.028 < 0.028 <0.028 NG/ML Total Protein 7.3 6.4-8.2 GM/DL Albumin 4.0 3.2-4.5 GM/DL Lipase 49 8-78 U/L My Orders Orders - RYLIE GALDAMEZ Diphenhydramine Injection (Benadryl Inje (02/21/19 21:09) Nitroglycerin 0.4 Mg Btl 25's (Nitrostat (02/21/19 21:09) Aspirin Chewable Tablet (Baby Aspirin Ch (02/21/19 21:09) Famotidine Injection (Pepcid Injection) (02/21/19 21:09) Cbc With Automated Diff (02/21/19 21:11) Magnesium (02/21/19 21:11) Chest 1 View, Ap/Pa Only (02/21/19 21:11) Ekg Tracing (02/21/19 21:11) Comprehensive Metabolic Panel (02/21/19 21:11) Myoglobin Serum (02/21/19 21:11) Protime With Inr (02/21/19 21:11) Partial Thromboplastin Time (02/21/19 21:11) O2 (02/21/19 21:11) Monitor-Rhythm Ecg Trace Only (02/21/19 21:11) Lipid Panel (02/22/19 06:00) Ed Iv/Invasive Line Start (02/21/19 21:11) Lipase (02/21/19 21:11) Nitroglycerin 0.4 Mg Btl 25's (Nitrostat (02/21/19 21:15) Aspirin Chewable Tablet (Baby Aspirin Ch (02/21/19 21:15) Diphenhydramine Injection (Benadryl Inje (02/21/19 21:15) Loratadine Tablet (Claritin Tablet) (02/21/19 21:15) Famotidine Injection (Pepcid Injection) (02/21/19 21:15) Ondansetron Injection (Zofran Injectio (02/21/19 21:15) Ed Iv/Invasive Line Start (02/21/19 21:14) Ns Iv 500 Ml (Sodium Chloride 0.9%) (02/21/19 21:14) Troponin I (02/21/19 21:20) Troponin I (02/21/19 23:20) Promethazine Tablet (Phenergan Tablet) (02/21/19 22:45) Medications Given in ED Current Medications Medications Dose Ordered Sig/Bear Route Start Time Stop Time Status Last Admin Dose Admin Aspirin 324 mg ONCE ONCE PO 02/21/19 21:15 02/21/19 21:16 DC 02/21/19 21:15 324 MG Diphenhydramine HCl 25 mg ONCE ONCE IVP 02/21/19 21:15 02/21/19 21:16 DC 02/21/19 21:23 25 MG Famotidine 20 mg ONCE ONCE IVP 02/21/19 21:15 02/21/19 21:16 DC 02/21/19 21:24 20 MG Loratadine 10 mg ONCE ONCE PO 02/21/19 21:15 02/21/19 21:16 DC 02/21/19 21:55 10 MG Ondansetron HCl 8 mg ONCE ONCE IVP 02/21/19 21:15 02/21/19 21:16 DC 02/21/19 21:55 8 MG Promethazine HCl 25 mg ONCE ONCE PO 02/21/19 22:45 02/21/19 22:46 DC 02/21/19 22:49 25 MG Sodium Chloride 500 ml @ 0 mls/hr Q0M ONCE IV 02/21/19 21:14 02/21/19 21:15 DC 02/21/19 21:56 999 MLS/HR Vital Signs/I&O 02/21/19 21:03 Temp 36.6 Pulse 73 Resp 18 B/P (MAP) 120/82 (95) 02/22/19 00:00 Intake Total 500 ml Balance 500 ml Progress Progress Note : Time: 22:18 Progress Note Heart score 5 points. She did not receive any nitroglycerin because her blood pressure was 115 systolic. Her pain has actually gone away in her chest that she still having intermittent waxing and waning discomfort in her abdomen which is consistent with her diarrhea vomiting and nausea. Her nausea is under control. She does have some minor swelling in her lips and will call this angioedema but she's not having any conclusion of her airway stridor or difficulty breathing since she's been here. Initial EKG is unremarkable for ST changes. Cardiac catheterization by Dr. Gomez 2016: Mild coronary disease nonobstructive. Normal left ventricular end-diastolic Initial ECG Impression Date: Feb 21, 2019 Initial ECG Impression Time: 21:07 Initial ECG Rate: 75 Initial ECG Rhythm: Normal Sinus Initial ECG Intervals: Normal Initial ECG Impression: Normal Initial ECG Comparisson: Unchanged Comment Normal sinus rhythm without clinically relevant ST elevation or depression. Diagnostic Imaging Diagonstic Imaging: Xray Plain Films/CT/US/NM/MRI: chest Comments No acute cardiopulmonary processes on one view chest x-ray. Reviewed: Reviewed by Me Consults : Consulting Physician: FERNY GOMEZ MD Consults Notes Discussed case lab EKG recent catheterization 3 years ago and imaging. He agrees that this likely does not represent coronary disease and a rule out in the ER as appropriate. Departure Impression Primary Impression: Angioedema Qualified Codes: T78.3XXA - Angioneurotic edema, initial encounter Additional Impressions: Gastroenteritis and colitis, viral Chest pain Qualified Codes: R07.89 - Other chest pain Disposition: 01 HOME, SELF-CARE Condition: Stable Departure-Patient Inst. Decision time for Depature: 00:12 Referrals: MARTHA GRANADOS MD (PCP/Family) Primary Care Physician Patient Instructions: Chest Pain That Is Not Caused by the Heart (DC), Angioedema (DC), Viral Gastroenteritis Add. Discharge Instructions: Drink plenty fluids. Sports rings are encouraged. Ondansetron one tablet every 4-6 hours as needed for nausea or vomiting. If you're still having diarrhea 24-48 hours later you may use 2 tablets of Imodium/loperamide followed by one tablet every 4 hours afterwards if you're still having watery stools. If you feel you cannot keep up with your fluid intake or you're having other worsening symptoms please return to the ER for further evaluation. Or your angioedema you should continue to use loratadine 10 mg or cetirizine 10 mg daily until it goes away. Pepcid/famotidine 20 mg twice a day until the swelling in your lips goes away. Benadryl 1-2 tablets every 6 hours as needed if you're still having swelling. If he started to have difficulty breathing, worsening symptoms despite these medications or other worrisome symptoms then please return to the ER immediately. Scripts Ondansetron (Ondansetron Odt) 4 Mg Tab.rapdis 4 MG PO Q6H PRN for NAUSEA/VOMITING, #14 TAB 0 Refills Prov: RYLIE GALDAMEZ 02/21/19 RYLIE GALDAMEZ Feb 21, 2019 21:16 POS
[2019-02-21 21:29] LABS: BASOPHILS # (AUTO) 0.1 10^3/uL (0.0-0.1); BASOPHILS % (AUTO) 1 % (0-10); EOSINOPHILS # (AUTO) 0.2 10^3/uL (0.0-0.3); EOSINOPHILS % (AUTO) 4 % (0-10); HEMATOCRIT 38 % (35-52); HEMOGLOBIN 12.6 G/DL (11.5-16.0); LYMPHOCYTES # (AUTO) 1.7 X 10^3 (1.0-4.0); LYMPHOCYTES % (AUTO) 30 % (12-44); MEAN CORPUSCULAR HEMOGLOBIN 28 PG (25-34); MEAN CORPUSCULAR HGB CONC 33 G/DL (32-36); MEAN CORPUSCULAR VOLUME 85 FL (80-99); MEAN PLATELET VOLUME 9.8 FL (7.4-10.4); MONOCYTES # (AUTO) 0.8 X 10^3 (0.0-1.0); MONOCYTES % (AUTO) 14 % (0-12); NEUTROPHILS % (AUTO) 52 % (42-75); PLATELET COUNT 344 10^3/uL (130-400); RED CELL DISTRIBUTION WIDTH 14.5 % (10.0-14.5); WHITE BLOOD COUNT 5.8 10^3/uL (4.3-11.0)
[2019-02-21 21:39] LABS: INR 0.9 (0.8-1.4); PROTHROMBIN TIME PATIENT 12.7 SEC (12.2-14.7)
[2019-02-21 21:52] LABS: ALANINE AMINOTRANSFERASE 15 U/L (0-55); ALKALINE PHOSPHATASE 84 U/L (40-136); BILIRUBIN,TOTAL 0.4 MG/DL (0.1-1.0); BUN/CREATININE RATIO 14; CALCIUM 9.3 MG/DL (8.5-10.1); CARBON DIOXIDE 21 MMOL/L (21-32); CHLORIDE 106 MMOL/L (98-107); CREATININE SERUM 1.15 MG/DL (0.60-1.30); GFR ESTIMATED 47; GLUCOSE 130 MG/DL (70-105); LIPASE 49 U/L (8-78); MAGNESIUM 2.1 MG/DL (1.6-2.4); POTASSIUM 3.6 MMOL/L (3.6-5.0); SODIUM 141 MMOL/L (135-145); TOTAL PROTEIN 7.3 GM/DL (6.4-8.2)
[2019-02-21] MEDS ORDERED: PROMETHAZINE 25 MG (PHENERGAN) TAB PO ONE (22:45)
[2019-02-21] MEDS ORDERED: ONDA4TAB11 PO (23:01)
[2019-02-22] MEDS ORDERED: RX-ONDANSETRON 4 MG ODT (ZOFRAN) PPK #4 PO STA (00:16)
[2019-02-22] MEDS ORDERED: ONDANSETRON 4 MG/2 ML (SDV) Z0FRAN IVP ONE (00:30)
[2019-02-22 00:38] VITALS: BP 166/82
--- NOTE | 2019-02-22 05:41 | Diagnostic Imaging Report ---
INDICATION: Chest pain COMPARISON: 05/05/2015 TECHNIQUE: Single frontal radiograph of the chest dated 02/21/2019 FINDINGS: The cardiac silhouette and pulmonary vasculature within normal limits. The lungs are clear. No pleural effusion. No pneumothorax. No acute osseous abnormality. IMPRESSION: No acute cardiopulmonary abnormality. Dictated by: Dictated on workstation # [id number]
--- OUTSIDE RECORDS SUMMARY | 2019-03-20 06:37 | XMS REPORT | Continuity of Care Document ---
Author Organization Unknown Address Unknown Phone Unavailable Allergies Active Description Code Type Severity Reaction Onset Reported/Identified Relationship to Patient Clinical Status Yes SULFA SULFA Unknown N/A 05/20/2010 Yes niacin [id number] Drug Allergy Unknown N/A 02/09/2017 Yes penicillin G [id number] Drug Allergy Unknown N/A 02/09/2017 Yes Sulfa (Sulfonamide Antibiotics) [id number] Drug Allergy Unknown N/A 017 Medications There is no data. 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 9 HYPOTHYROIDISM, UNSPECIFIED 05/05/2015 FERNY GOMEZ MD Ot E66. 9 OBESITY, UNSPECIFIED 05/05/2015 FERNY GOMEZ MD Ot E78. 5 HYPERLIPIDEMIA, UNSPECIFIED 05/05/2015 FERNY GOMEZ MD Ot I10 ESSENTIAL (PRIMARY) HYPERTENSION 05/05/2015 FERNY GOMEZ MD Ot I25. 10 ATHSCL HEART DISEASE OF [place] CORONARY 05/05/2015 FERNY GOMEZ MD Ot R07. 89 OTHER CHEST PAIN 05/05/2015 FERNY GOMEZ MD Ot R94. 39 ABNORMAL RESULT OF OTHER CARDIOVASCULAR 05/05/2015 FERNY GOMEZ MD Ot Z68. 42 BODY MASS INDEX (BMI) 45.0-49.9, ADULT 05/05/2015 JASON MCNEILL, FERNY Tabor Ot Z79.899 OTHER RESIDENTIAL (CURRENT) DRUG THERAPY 05/06/2015 Ot E78.2 05/06/2015 Ot I10 05/06/2015 Ot I25.10 05/06/2015 Ot R07.89 05/20/2015 Ot E78.2 05/20/2015 Ot I10 05/20/2015 Ot I25.10 05/20/2015 Ot R07.89 02/04/2016 Ot 571.8 TOOL TURRET LATHE SET UP OPERATOR [place] LIVER DIS NEC 02/04/2016 Ot 577.8 PANC REATIC DISEASE NEC 02/04/2016 Ot 715.37 LOC OSTEOARTH NOS-ANKLE 02/04/2016 Ot 726.70 ANK LE ENTHESOPATHY NOS 02/04/2016 Ot 729.5 PAIN IN LIMB 02/04/2016 Ot V76.12 OTH SCREEN MAMMO- MALIGN NEOPLASM OF IAN 02/04/2016 FERNY GOMEZ MD Ot 397. 0 TRICUSPID VALVE DISEASE 02/04/2016 FERNY GOMEZ MD Ot 401. 9 HYPERTENSION NOS 02/04/2016 FERNY GOMEZ MD Ot 424. 0 MITRAL VALVE DISORDER 02/04/2016 FERNY GOMEZ MD Ot 429. 3 CARDIOMEGALY 02/04/2016 FERNY GOMEZ MD Ot 786. 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 0 TRICUSPID VALVE DISEASE 02/04/2016 FERNY GOMEZ MD Ot 401. 9 HYPERTENSION NOS 02/04/2016 FERNY GOMEZ MD Ot 424. 0 MITRAL VALVE DISORDER 02/04/2016 FERNY GOMEZ MD Ot 429. 3 CARDIOMEGALY 02/04/2016 FERNY GOMEZ MD Ot 786. 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 0 TRICUSPID VALVE DISEASE 11/21/2016 FERNY GOMEZ MD Ot 401. 9 HYPERTENSION NOS 11/21/2016 FERNY GOMEZ MD Ot 424. 0 MITRAL VALVE DISORDER 11/21/2016 FERNY GOMEZ MD Ot 429. 3 CARDIOMEGALY 11/21/2016 FERNY GOMEZ MD Ot 786. 09 RESPIRATORY ABNORM NEC 11/21/2016 BRANDO PIZARRO MD Ot 401.9 HYPERTENSION NOS 11/21/2016 BRANDO PIZARRO MD Ot 780.93 MEMORY LOSS 11/21/2016 BRANDO PIZARRO MD Ot V76.12 OTH SCREEN MAMMO-MALIGN NEOPLASM OF IAN 11/21/2016 Ot E78.2 MIXE D HYPERLIPIDEMIA 11/21/2016 Ot I10 ESSENT IAL (PRIMARY) HYPERTENSION 11/21/2016 Ot I25.10 ATH SCL HEART DISEASE OF [place] CORONARY 11/21/2016 Ot R07.89 OTH ER CHEST PAIN 11/21/2016 Ot 571.8 TOOL TURRET LATHE SET UP OPERATOR MAR[place] LIVER DIS NEC 11/21/2016 Ot 577.8 PANC REATIC DISEASE NEC 11/21/2016 Ot 715.37 LOC OSTEOARTH NOS-ANKLE 11/21/2016 Ot 726.70 ANK LE ENTHESOPATHY NOS 11/21/2016 Ot 729.5 PAIN IN LIMB 11/21/2016 Ot V76.12 OTH SCREEN MAMMO- MALIGN NEOPLASM OF IAN 11/21/2016 FERNY GOMEZ MD Ot 397. 0 TRICUSPID VALVE DISEASE 11/21/2016 FERNY GOMEZ MD Ot 401. 9 HYPERTENSION NOS 11/21/2016 JASON MCNEILL, FERNY Tabor Ot 424. 0 MITRAL VALVE DISORDER 11/21/2016 FERNY GOMEZ MD Ot 429. 3 CARDIOMEGALY 11/21/2016 FERNY GOMEZ MD Ot 786. 09 RESPIRATORY ABNORM NEC 11/21/2016 MOIRA MCNEILL, BRANDO Dobbins Ot 401.9 HYPERTENSION NOS 11/21/2016 MOIRA MCNEILL, BRANDO Dobbins Ot 780.93 MEMORY LOSS 11/21/2016 BRANDO PIZARRO MD Ot V76.12 OTH SCREEN MAMMO-MALIGN NEOPLASM OF IAN 11/21/2016 Ot E78.2 MIXE D HYPERLIPIDEMIA 11/21/2016 Ot I10 ESSENT IAL (PRIMARY) HYPERTENSION 11/21/2016 Ot I25.10 ATH SCL HEART DISEASE OF [place] CORONARY 11/21/2016 Ot R07.89 OTH ER CHEST PAIN 11/21/2016 KAIT HECK MD Ot N39.46 MIXED INCONTINENCE 11/21/2016 KAIT HECK MD Ot N81.10 CYSTOCELE, UNSPECIFIED 11/21/2016 KAIT HECK MD Ot N93.9 ABNORMAL UTERINE AND VAGINAL BLEEDING, U 11/21/2016 KAIT HECK MD Ot Z01.812 ENCOUNTER FOR PREPROCEDURAL LABORATORY E 11/22/2016 KAIT HECK MD Ot N39.46 MIXED INCONTINENCE 11/22/2016 KAIT HECK MD, Ot N81.10 CYSTOCELE, UNSPECIFIED 11/22/2016 KAIT HECK MD, Ot N93.9 ABNORMAL UTERINE AND VAGINAL BLEEDING, U 11/22/2016 KAIT HECK MD, Ot Z01.812 ENCOUNTER FOR PREPROCEDURAL LABORATORY E 11/26/2016 KAIT HECK MD, Ot E03.9 HYPOTHYROIDISM, UNSPECIFIED 11/26/2016 KAIT HECK MD, Ot E78.5 HYPERLIPIDEMIA, UNSPECIFIED 11/26/2016 KAIT HECK MD, Ot F32.9 MAJOR DEPRESSIVE DISORDER, SINGLE EPISOD 11/26/2016 KAIT HECK MD, Ot F41.9 ANXIETY DISORDER, UNSPECIFIED 11/26/2016 KAIT HECK MD, Ot G47.33 OBSTRUCTIVE SLEEP APNEA (ADULT) (PEDIATR 11/26/2016 KAIT HECK MD Ot I10 ESSENTIAL (PRIMARY) HYPERTENSION 11/26/2016 KAIT HECK MD, Ot N39.3 STRESS INCONTINENCE (FEMALE) (MALE) 11/26/2016 KAIT HECK MD, Ot N81.4 UTEROVAGINAL PROLAPSE, UNSPECIFIED 11/26/2016 KAIT HECK MD, Ot Z79.899 OTHER RESIDENTIAL (CURRENT) DRUG THERAPY 11/26/2016 KAIT HECK MD, Ot Z86.73 PRSNL HX OF TIA (TIA), AND CEREB INFRC W 11/30/2016 KAIT HECK MD, Ot E03.9 HYPOTHYROIDISM, UNSPECIFIED 11/30/2016 KAIT HECK MD, Ot E78.5 HYPERLIPIDEMIA, UNSPECIFIED 11/30/2016 KAIT HECK MD, Ot F32.9 MAJOR DEPRESSIVE DISORDER, SINGLE EPISOD 11/30/2016 KAIT HECK MD, Ot F41.9 ANXIETY DISORDER, UNSPECIFIED 11/30/2016 KAIT HECK MD Ot G47.33 OBSTRUCTIVE SLEEP APNEA (ADULT) (PEDIATR 11/30/2016 KAIT HECK MD Ot I10 ESSENTIAL (PRIMARY) HYPERTENSION 11/30/2016 KAIT HECK MD Ot N39.3 STRESS INCONTINENCE (FEMALE) (MALE) 11/30/2016 KAIT HECK MD Ot N81.4 UTEROVAGINAL PROLAPSE, UNSPECIFIED 11/30/2016 KAIT HECK MD Ot Z79.899 OTHER RESIDENTIAL (CURRENT) DRUG THERAPY 11/30/2016 KAIT HECK MD Ot Z86.73 PRSNL HX OF TIA (TIA), AND CEREB INFRC W 12/04/2016 KAIT HECK MD Ot E03.9 HYPOTHYROIDISM, UNSPECIFIED 12/04/2016 KAIT HECK MD, Ot E78.5 HYPERLIPIDEMIA, UNSPECIFIED 12/04/2016 KAIT HECK MD Ot F32.9 MAJOR DEPRESSIVE DISORDER, SINGLE EPISOD 12/04/2016 KAIT HECK MD Ot F41.9 ANXIETY DISORDER, UNSPECIFIED 12/04/2016 KAIT HECK MD Ot G47.33 OBSTRUCTIVE SLEEP APNEA (ADULT) (PEDIATR 12/04/2016 KAIT HECK MD Ot I10 ESSENTIAL (PRIMARY) HYPERTENSION 12/04/2016 KAIT HECK MD Ot N39.3 STRESS INCONTINENCE (FEMALE) (MALE) 12/04/2016 KAIT HECK MD Ot N81.4 UTEROVAGINAL PROLAPSE, UNSPECIFIED 12/04/2016 KAIT HECK MD, Ot Z79.899 OTHER RESIDENTIAL (CURRENT) DRUG THERAPY 12/04/2016 KAIT HECK MD Ot Z86.73 PRSNL HX OF TIA (TIA), AND CEREB INFRC W 01/03/2017 KAIT HECK MD Ot E03.9 HYPOTHYROIDISM, UNSPECIFIED 01/03/2017 KAIT HECK MD Ot E78.5 HYPERLIPIDEMIA, UNSPECIFIED 01/03/2017 KAIT HECK MD Ot F32.9 MAJOR DEPRESSIVE DISORDER, SINGLE EPISOD 01/03/2017 KAIT HECK MD Ot F41.9 ANXIETY DISORDER, UNSPECIFIED 01/03/2017 KAIT HECK MD, Ot G47.33 OBSTRUCTIVE SLEEP APNEA (ADULT) (PEDIATR 01/03/2017 KAIT HECK MD, Ot I10 ESSENTIAL (PRIMARY) HYPERTENSION 01/03/2017 KAIT HECK MD, Ot N39.3 STRESS INCONTINENCE (FEMALE) (MALE) 01/03/2017 KAIT HECK MD, Ot N81.4 UTEROVAGINAL PROLAPSE, UNSPECIFIED 01/03/2017 KAIT HECK MD, Ot Z79.899 OTHER F[employer] MEMBER (CURRENT) DRUG THERAPY 01/03/2017 KAIT HECK MD, Ot Z86.73 PRSNL HX OF TIA (TIA), AND CEREB INFRC W 02/09/2017 ARPAN YOUNGBLOOD MD Ot K21.9 GASTRO-ESOPHAGEAL REFLUX DISEASE WITHOUT 02/09/2017 ARPAN YOUNGBLOOD MD Ot T85.61 5A BRKDWN OTHER NERVOUS SYS DEVICE, IMPLANT 02/09/2017 ARPAN YOUNGBLOOD MD Ot Z01.81 8 ENCOUNTER FOR OTHER PREPROCEDURAL EXAMIN 02/09/2017 ARPAN YOUNGBLOOD MD Ot K21.9 GASTRO-ESOPHAGEAL REFLUX DISEASE WITHOUT 02/09/2017 ARPAN YOUNGBLOOD MD Ot T85.61 5A BRKDWN OTHER NERVOUS SYS DEVICE, IMPLANT 02/09/2017 ARPAN YOUNGBLOOD MD Ot Z01.81 8 ENCOUNTER FOR OTHER PREPROCEDURAL EXAMIN 02/09/2017 ARPAN YOUNGBLOOD MD Ot K21.9 GASTRO-ESOPHAGEAL REFLUX DISEASE WITHOUT 02/09/2017 ARPAN YOUNGBLOOD MD Ot T85.61 5A BRKDWN OTHER NERVOUS SYS DEVICE, IMPLANT 02/09/2017 ARPAN YOUNGBLOOD MD Ot Z01.81 8 ENCOUNTER FOR OTHER PREPROCEDURAL EXAMIN 02/09/2017 ARPAN YOUNGBLOOD MD Ot K21.9 GASTRO-ESOPHAGEAL REFLUX DISEASE WITHOUT 02/09/2017 ARPAN YOUNGBLOOD MD Ot T85.61 5A BRKDWN OTHER NERVOUS SYS DEVICE, IMPLANT 02/09/2017 ARPAN YOUNGBLOOD MD Ot Z01.81 8 ENCOUNTER FOR OTHER PREPROCEDURAL EXAMIN 02/15/2017 KIDO MD, TAKAAKI Ot E03.9 HYPOTHYROIDISM, UNSPECIFIED 02/15/2017 ARPAN YOUNGBLOOD MD Ot E78.00 PURE HYPERCHOLESTEROLEMIA, UNSPECIFIED 02/15/2017 ARPAN YOUNGBLOOD MD, Ot F32.9 MAJOR DEPRESSIVE DISORDER, SINGLE EPISOD 02/15/2017 ARPAN YOUNGBLOOD MD, Ot F41.9 ANXIETY DISORDER, UNSPECIFIED 02/15/2017 ARPAN YOUNGBLOOD MD Ot G47.33 OBSTRUCTIVE SLEEP APNEA (ADULT) (PEDIATR 02/15/2017 ARPAN YOUNGBLOOD MD Ot I10 ESSENTIAL (PRIMARY) HYPERTENSION 02/15/2017 ARPAN YOUNGBLOOD MD Ot K21.0 GASTRO-ESOPHAGEAL REFLUX DISEASE WITH ES 02/15/2017 ARPAN YOUNGBLOOD MD Ot K29.70 GASTRITIS, UNSPECIFIED, WITHOUT BLEEDING 02/15/2017 ARPAN YOUNGBLOOD MD Ot T85.61 5A BRKDWN OTHER NERVOUS SYS DEVICE, IMPLANT 02/15/2017 ARPAN YOUNGBLOOD MD Ot Z79.82 RESIDENTIAL (CURRENT) USE OF ASPIRIN 02/15/2017 ARPAN YOUNGBLOOD MD Ot Z79.89 9 OTHER [employer]BER (CURRENT) DRUG THERAPY 02/15/2017 ARPAN YOUNGBLOOD MD Ot Z86.73 PRSNL HX OF TIA (TIA), AND CEREB INFRC W 02/16/2017 ARPAN YOUNGBLOOD MD, Ot E03.9 HYPOTHYROIDISM, UNSPECIFIED 02/16/2017 ARPAN YOUNGBLOOD MD Ot E78.00 PURE HYPERCHOLESTEROLEMIA, UNSPECIFIED 02/16/2017 ARPAN YOUNGBLOOD MD, Ot F32.9 MAJOR DEPRESSIVE DISORDER, SINGLE EPISOD 02/16/2017 ARPAN YOUNGBLOOD MD, Ot F41.9 ANXIETY DISORDER, UNSPECIFIED 02/16/2017 ARPAN YOUNGBLOOD MD Ot G47.33 OBSTRUCTIVE SLEEP APNEA (ADULT) (PEDIATR 02/16/2017 ARPAN YOUNGBLOOD MD Ot I10 ESSENTIAL (PRIMARY) HYPERTENSION 02/16/2017 ARPAN YOUNGBLOOD MD Ot K21.0 GASTRO-ESOPHAGEAL REFLUX DISEASE WITH ES 02/16/2017 ARPAN YOUNGBLOOD MD Ot K29.70 GASTRITIS, UNSPECIFIED, WITHOUT BLEEDING 02/16/2017 ARPAN YOUNGBLOOD MD Ot T85.61 5A BRKDWN OTHER NERVOUS SYS DEVICE, IMPLANT 02/16/2017 ARPAN YOUNGBLOOD MD Ot Z79.82 RESIDENTIAL (CURRENT) USE OF ASPIRIN 02/16/2017 ARPAN YOUNGBLOOD MD, Ot Z79.89 9 OTHER [employer]BER (CURRENT) DRUG THERAPY 02/16/2017 ARPAN YOUNGBLOOD MD, Ot Z86.73 PRSNL HX OF TIA (TIA), AND CEREB INFRC W 04/11/2017 RYLIE GALDAMEZ MD Ot F32. 9 MAJOR DEPRESSIVE DISORDER, SINGLE EPISOD 04/11/2017 RYLIE GALDAMEZ MD Ot F41. 9 ANXIETY DISORDER, UNSPECIFIED 04/11/2017 RYLIE GALDAMEZ MD Ot G47. 33 OBSTRUCTIVE SLEEP APNEA (ADULT) (PEDIATR 04/11/2017 RYLIE GALDAMEZ MD Ot I10 ESSENTIAL (PRIMARY) HYPERTENSION 04/11/2017 RYLIE GALDAMEZ MD Ot K21. 9 GASTRO-ESOPHAGEAL REFLUX DISEASE WITHOUT 04/11/2017 RYLIE GALDAMEZ MD Ot R07. 81 PLEURODYNIA 04/11/2017 RYLIE GALDAMEZ MD Ot S22.31XA FRACTURE OF ONE RIB, RIGHT SIDE, INIT FO 04/11/2017 RYLIE GALDAMEZ MD Ot X50.0XXA OVEREXERTION FROM STRENUOUS MOVEMENT OR 04/11/2017 RYLIE GALDAMEZ MD, Ot Z79. 82 [employer] (CURRENT) USE OF ASPIRIN 04/11/2017 RYLIE GALDAMEZ MD, Ot Z86. 73 PRSNL HX OF TIA (TIA), AND CEREB INFRC W 04/11/2017 RYLIE GALDAMEZ MD Ot Z87. 19 PERSONAL HISTORY OF OTHER DISEASES OF TH 04/11/2017 RYLIE GALDAMEZ MD Ot Z90.710 ACQUIRED ABSENCE OF BOTH CERVIX AND UTER 04/11/2017 RYLIE GALDAMEZ MD Ot Z96.653 PRESENCE OF ARTIFICIAL KNEE JOINT, BILAT 05/02/2017 Ot 272.4 05/02/2017 Ot 278.00 05/02/2017 Ot 401.9 05/02/2017 Ot 786.50 05/02/2017 Ot 573.8 05/02/2017 Ot 789.00 05/02/2017 Ot 401.9 05/02/2017 Ot 726.2 05/02/2017 Ot 840.4 05/02/2017 Ot E888.9 05/02/2017 Ot V12.59 05/02/2017 Ot V58.66 05/02/2017 Ot V58.69 05/02/2017 Ot V72.81 05/02/2017 Ot V72.83 05/02/2017 Ot V74.8 05/02/2017 Ot 397.0 05/02/2017 Ot 401.9 05/02/2017 Ot 424.0 05/02/2017 Ot 429.3 05/02/2017 Ot V12.59 05/02/2017 Ot 397.0 05/02/2017 Ot 424.0 05/02/2017 Ot 429.3 05/02/2017 Ot 786.09 05/02/2017 Ot 786.50 05/02/2017 Ot 786.09 RES PIRATORY ABNORM NEC 05/02/[address] PAIN NOS 05/02/2017 Ot 571.8 TOOL TURRET LATHE SET UP OPERATOR MARILEE LIVER DIS NEC 05/02/2017 Ot 577.8 PANC REATIC DISEASE NEC 05/02/2017 Ot 715.37 LOC OSTEOARTH NOS-ANKLE 05/02/2017 Ot 726.70 ANK LE ENTHESOPATHY NOS 05/02/2017 Ot 729.5 PAIN IN LIMB 05/02/2017 Ot V76.12 OTH SCREEN MAMMO- MALIGN NEOPLASM OF IAN 05/02/2017 FERNY GOMEZ MD Ot 397. 0 TRICUSPID VALVE DISEASE 05/02/2017 FERNY GOMEZ MD Ot 401. 9 HYPERTENSION NOS 05/02/2017 FERNY GOMEZ MD Ot 424. 0 MITRAL VALVE DISORDER 05/02/2017 FERNY GOMEZ MD Ot 429. 3 CARDIOMEGALY 05/02/2017 FERNY GOMEZ MD Ot 786. 09 RESPIRATORY ABNORM NEC 05/02/2017 BRANDO PIZARRO MD Ot 401.9 HYPERTENSION NOS 05/02/2017 BRANDO PIZARRO MD Ot 780.93 MEMORY LOSS 05/02/2017 BRANDO PIZARRO MD Ot V76.12 OTH SCREEN MAMMO-MALIGN NEOPLASM OF IAN 05/02/2017 Ot E78.2 MIXE D HYPERLIPIDEMIA 05/02/2017 Ot I10 ESSENT IAL (PRIMARY) HYPERTENSION 05/02/2017 Ot I25.10 ATH SCL HEART DISEASE OF [place] CORONARY 05/02/2017 Ot R07.89 OTH ER CHEST PAIN 11/21/2017 DARWIN MCNEILL, MARTHA Chase Ot K76. 89 OTHER SPECIFIED DISEASES OF LIVER 11/21/2017 MARTHA GRANADOS MD, Ot N28. 89 OTHER SPECIFIED DISORDERS OF KIDNEY AND 11/21/2017 MARTHA GRANADOS MD, Ot Z90. 49 ACQUIRED ABSENCE OF OTHER SPECIFIED PART 11/26/2017 MARTHA GRANADOS MD, Ot K76. 89 OTHER SPECIFIED DISEASES OF LIVER 11/26/2017 MARTHA GRANADOS MD, Ot N28. 89 OTHER SPECIFIED DISORDERS OF KIDNEY AND 11/26/2017 MARTHA GRANADOS MD, Ot Z90. 49 ACQUIRED ABSENCE OF OTHER SPECIFIED PART 12/06/2017 MARTHA GRANADOS MD, Ot K76. 89 OTHER SPECIFIED DISEASES OF LIVER 12/06/2017 MARTHA GRANADOS MD, Ot N28. 89 OTHER SPECIFIED DISORDERS OF KIDNEY AND 12/06/2017 MARTHA GRANADOS MD, Ot Z90. 49 ACQUIRED ABSENCE OF OTHER SPECIFIED PART 04/08/2018 MARTHA GRANADOS MD, Ot K76. 89 OTHER SPECIFIED DISEASES OF LIVER 04/08/2018 MARTHA GRANADOS MD, Ot N28. 89 OTHER SPECIFIED DISORDERS OF KIDNEY AND 04/08/2018 MARTHA GRANADOS MD, Ot Z90. 49 ACQUIRED ABSENCE OF OTHER SPECIFIED PART 08/11/2018 MOY GANNON MD, Ot F32.9 MAJOR DEPRESSIVE DISORDER, SINGLE EPISOD 08/11/2018 MOY GANNON MD, Ot F41.9 ANXIETY DISORDER, UNSPECIFIED 08/11/2018 MOY GANNON MD, Ot G47.30 SLEEP APNEA, UNSPECIFIED 08/11/2018 MOY GANNON MD, Ot I10 ESSENTIAL (PRIMARY) HYPERTENSION 08/11/2018 MOY GANNON MD, Ot K21.9 GASTRO-ESOPHAGEAL REFLUX DISEASE WITHOUT 08/11/2018 MOY GANNON MD Ot R21 RASH AND OTHER NONSPECIFIC SKIN ERUPTION 08/11/2018 MOY GANNON MD, Ot T63.891A TOXIC EFFECT OF CONTACT W OTH VENOMOUS A 08/11/2018 MOY GANNON MD, Ot Z79.82 [employer] (CURRENT) USE OF ASPIRIN 08/11/2018 MOY GANNON MD, Ot Z86.73 PRSNL HX OF TIA (TIA), AND CEREB INFRC W 08/11/2018 MOY GANNON MD, Ot Z87.19 PERSONAL HISTORY OF OTHER DISEASES OF TH 08/11/2018 MOY GANNON MD Ot Z88.0 ALLERGY STATUS TO PENICILLIN 08/11/2018 MOY GANNON MD, Ot Z88.2 ALLERGY STATUS TO SULFONAMIDES STATUS 08/11/2018 MOY GANNON MD, Ot Z88.8 ALLERGY STATUS TO OTH DRUG/MEDS/BIOL SUB 08/11/2018 MOY GANNON MD Ot Z90.710 ACQUIRED ABSENCE OF BOTH CERVIX AND UTER 08/11/2018 MOY GANNON MD Ot Z96.653 PRESENCE OF ARTIFICIAL KNEE JOINT, BILAT 08/11/2018 MOY GANNON MD Ot Z98.890 OTHER SPECIFIED POSTPROCEDURAL STATES 08/15/2018 MOY GANNON MD, Ot F32.9 MAJOR DEPRESSIVE DISORDER, SINGLE EPISOD 08/15/2018 MOY GANNON MD, Ot F41.9 ANXIETY DISORDER, UNSPECIFIED 08/15/2018 MOY GANNON MD Ot G47.30 SLEEP APNEA, UNSPECIFIED 08/15/2018 MOY GANNON MD Ot I10 ESSENTIAL (PRIMARY) HYPERTENSION 08/15/2018 MOY GANNON MD Ot K21.9 GASTRO-ESOPHAGEAL REFLUX DISEASE WITHOUT 08/15/2018 MOY GANNON MD Ot R21 RASH AND OTHER NONSPECIFIC SKIN ERUPTION 08/15/2018 MOY GANNON MD Ot T63.891A TOXIC EFFECT OF CONTACT W OTH VENOMOUS A 08/15/2018 MOY GANNON MD Ot Z79.82 [employer] (CURRENT) USE OF ASPIRIN 08/15/2018 MOY GANNON MD Ot Z86.73 PRSNL HX OF TIA (TIA), AND CEREB INFRC W 08/15/2018 MOY GANNON MD Ot Z87.19 PERSONAL HISTORY OF OTHER DISEASES OF TH 08/15/2018 MOY GANNON MD Ot Z88.0 ALLERGY STATUS TO PENICILLIN 08/15/2018 MOY GANNON MD, Ot Z88.2 ALLERGY STATUS TO SULFONAMIDES STATUS 08/15/2018 MOY GANNON MD, Ot Z88.8 ALLERGY STATUS TO OTH DRUG/MEDS/BIOL SUB 08/15/2018 MOY GANNON MD Ot Z90.710 ACQUIRED ABSENCE OF BOTH CERVIX AND UTER 08/15/2018 MOY GANNON MD Ot Z96.653 PRESENCE OF ARTIFICIAL KNEE JOINT, BILAT 08/15/2018 MOY GANNON MD Ot Z98.890 OTHER SPECIFIED POSTPROCEDURAL STATES 02/22/2019 MARTHA GRANADOS MD Ot K76. 89 OTHER SPECIFIED DISEASES OF LIVER 02/22/2019 MARTHA GRANADOS MD, Ot N28. 89 OTHER SPECIFIED DISORDERS OF KIDNEY AND 02/22/2019 MARTHA GRANADOS MD Ot Z90. 49 ACQUIRED ABSENCE OF OTHER SPECIFIED PART 02/22/2019 MARTHA GRANADOS MD, Ot K76. 89 OTHER SPECIFIED DISEASES OF LIVER 02/22/2019 MARTHA GRANADOS MD, Ot N28. 89 OTHER SPECIFIED DISORDERS OF KIDNEY AND 02/22/2019 MARTHA GRANADOS MD, Ot Z90. 49 ACQUIRED ABSENCE OF OTHER SPECIFIED PART 02/25/2019 MARTHA GRANADOS MD, Ot K76. 89 OTHER SPECIFIED DISEASES OF LIVER 02/25/2019 MARTHA GRANADOS MD, Ot N28. 89 OTHER SPECIFIED DISORDERS OF KIDNEY AND 02/25/2019 MARTHA GRANADOS MD Ot Z90. 49 ACQUIRED ABSENCE OF OTHER SPECIFIED PART 02/26/2019 RYLIE GALDAMEZ MD Ot A08. 4 VIRAL INTESTINAL INFECTION, UNSPECIFIED 02/26/2019 RYLIE GALDAMEZ MD Ot E78. 5 HYPERLIPIDEMIA, UNSPECIFIED 02/26/2019 RYLIE GALDAMEZ MD Ot F32. 9 MAJOR DEPRESSIVE DISORDER, SINGLE EPISOD 02/26/2019 RYLIE GALDAMEZ MD Ot F41. 9 ANXIETY DISORDER, UNSPECIFIED 02/26/2019 RYLIE GALDAMEZ MD Ot I10 ESSENTIAL (PRIMARY) HYPERTENSION 02/26/2019 RYLIE GALDAMEZ MD Ot K21. 9 GASTRO-ESOPHAGEAL REFLUX DISEASE WITHOUT 02/26/2019 RYLIE GALDAMEZ MD Ot R06. 89 OTHER ABNORMALITIES OF BREATHING 02/26/2019 RYLIE GALDAMEZ MD Ot R07. 9 CHEST PAIN, UNSPECIFIED 02/26/2019 RYLIE GALDAMEZ MD Ot T78.3XXA ANGIONEUROTIC EDEMA, INITIAL ENCOUNTER 02/26/2019 RYLIE GALDAMEZ MD Ot Z79. 82 RESIDENTIAL (CURRENT) USE OF ASPIRIN 02/26/2019 RYLIE GALDAMEZ MD Ot Z86. 73 PRSNL HX OF TIA (TIA), AND CEREB INFRC W 02/26/2019 RYLIE GALDAMEZ MD Ot Z88. 0 ALLERGY STATUS TO PENICILLIN 02/26/2019 RYLIE GALDAMEZ MD Ot Z88. 2 ALLERGY STATUS TO SULFONAMIDES STATUS 02/26/2019 RYLIE GALDAMEZ MD Ot Z88. 8 ALLERGY STATUS TO OTH DRUG/MEDS/BIOL SUB 02/26/2019 RYLIE GALDAMEZ MD Ot Z90.710 ACQUIRED ABSENCE OF BOTH CERVIX AND UTER 02/26/2019 RYLIE GALDAMEZ MD Ot Z96.653 PRESENCE OF ARTIFICIAL KNEE JOINT, BILAT Procedures Code Description Performed By Per formed On 37.22 LEFT HEART CARDIAC CATH 09/25/2005 88.42 CONT RAST AORTOGRAM 09/25/2005 88.53 LT H EART ANGIOCARDIOGRAM 09/25/2005 88.56 ELICIA DELMY ARTERIOGR-2 CATH 09/25/2005 45.16 ESOP HAGOGASTRODUODENOSCOPY [EGD] W/CLOSE 05/20/2010 Results Test Result Range Methicillin resistant Staphylococcus aur eus (MRSA) screening culture - 11/21/16 14:45 Methicillin resistant Staphylococcus aureus (MRSA) scr eening culture NEG NRG Whole blood basic metabolic panel - 08/02 14:50 Serum or plasma sodium measurement (moles/volume) 141 mmol/L 135-145 Serum or plasma potassium measurement (moles/volume) 3.3 mmol/L 3.6-5.0 Serum or plasma chloride measurement (moles/volume) 107 mmol/L 98-107 Carbon dioxide 24 mmol/L 21-32 Serum or plasma anion gap determination (moles/volume) 10 mmol/L 5-14 Serum or plasma urea nitrogen measurement (mass/volume ) 18 mg/dL 7-18 Serum or plasma creatinine measurement (mass/volume) 0.81 mg/dL 0.60-1.30 Serum or plasma urea nitrogen/creatinine mass ratio 22 NRG Serum or plasma creatinine measurement w ith calculation of estimated glomerular filtration rate > NRG Serum or plasma glucose measurement (mass/volume) 91 mg/dL 70-105 Serum or plasma calcium measurement (mass/volume) 9.2 mg/dL 8.5-10.1 Methicillin resistant Staphylococcus aur eus (MRSA) screening culture - 02/15/17 07:20 Methicillin resistant Staphylococcus aureus (MRSA) scr eening culture NEG NRG Comprehensive metabolic panel - 11/20/17 12:42 Serum or plasma sodium measurement (moles/volume) 139 mmol/L 135-145 Serum or plasma potassium measurement (moles/volume) 3.7 mmol/L 3.6-5.0 Serum or plasma chloride measurement (moles/volume) 104 mmol/L 98-107 Carbon dioxide 26 mmol/L 21-32 Serum or plasma anion gap determination (moles/volume) 9 mmol/L 5-14 Serum or plasma urea nitrogen measurement (mass/volume ) 24 mg/dL 7-18 Serum or plasma creatinine measurement (mass/volume) 0.86 mg/dL 0.60-1.30 Serum or plasma urea nitrogen/creatinine mass ratio 28 NRG Serum or plasma creatinine measurement w ith calculation of estimated glomerular filtration rate > NRG Serum or plasma glucose measurement (mass/volume) 101 mg/dL 70-105 Serum or plasma calcium measurement (mass/volume) 9.4 mg/dL 8.5-10.1 Serum or plasma total bilirubin measurement (mass/volu me) 0.6 mg/dL 0.1-1.0 Serum or plasma alkaline phosphatase alejandro surement (enzymatic activity/volume) 69 U/L 40-136 Serum or plasma aspartate aminotransfera se measurement (enzymatic activity/volume) 14 U/L 5-34 Serum or plasma alanine aminotransferase measurement (enzymatic activity/volume) 10 U/L 0-55 Serum or plasma protein measurement (mass/volume) 7.1 g/dL 6.4-8.2 Serum or plasma albumin measurement (mass/volume) 3.9 g/dL 3.2-4.5 CALCIUM CORRECTED 9.5 mg/dL 8.5-10.1 Complete blood count (CBC) with automate d white blood cell (WBC) differential - 02/21/19 21:20 Blood leukocytes automated count (number/volume) 5.8 10*3/uL 4.3-11.0 Blood erythrocytes automated count (number/volume) 4.46 10*6/uL 4.35-5.85 Venous blood hemoglobin measurement (mass/volume) 12.6 g/dL 11.5-16.0 Blood hematocrit (volume fraction) 38 % 35-52 Automated erythrocyte mean corpuscular volume 85 [ foz_us] 80-99 Automated erythrocyte mean corpuscular h emoglobin (mass per erythrocyte) 28 pg 25-34 Automated erythrocyte mean corpuscular h emoglobin concentration measurement (mass/volume) 33 g/dL 32-36 Automated erythrocyte distribution width ratio 14. 5 % 10.0- 14.5 Automated blood platelet count (count/volume) 344 10*3/uL 130-400 Automated blood platelet mean volume measurement 9.8 [foz_us] 7.4-10.4 Automated blood neutrophils/100 leukocytes 52 % 42-75 Automated blood lymphocytes/100 leukocytes 30 % 12-44 Blood monocytes/100 leukocytes 14 % 0-12 Automated blood eosinophils/100 leukocytes 4 % 0-10 Automated blood basophils/100 leukocytes 1 % 0-10 Blood neutrophils automated count (number/volume) 3.0 10*3 1.8-7.8 Blood lymphocytes automated count (number/volume) 1.7 10*3 1.0-4.0 Blood monocytes automated count (number/volume) 0. 8 10*3 0.0-1.0 Automated eosinophil count 0.2 10*3/uL 0 .0-0.3 Automated blood basophil count (count/volume) 0.1 10*3/uL 0.0-0.1 Comprehensive metabolic panel - 02/21/19 21:20 Serum or plasma sodium measurement (moles/volume) 141 mmol/L 135-145 Serum or plasma potassium measurement (moles/volume) 3.6 mmol/L 3.6-5.0 Serum or plasma chloride measurement (moles/volume) 106 mmol/L 98-107 Carbon dioxide 21 mmol/L 21-32 Serum or plasma anion gap determination (moles/volume) 14 mmol/L 5-14 Serum or plasma urea nitrogen measurement (mass/volume ) 16 mg/dL 7-18 Serum or plasma creatinine measurement (mass/volume) 1.15 mg/dL 0.60-1.30 Serum or plasma urea nitrogen/creatinine mass ratio 14 NRG Serum or plasma creatinine measurement w ith calculation of estimated glomerular filtration rate 47 NRG Serum or plasma glucose measurement (mass/volume) 130 mg/dL 70-105 Serum or plasma calcium measurement (mass/volume) 9.3 mg/dL 8.5-10.1 Serum or plasma total bilirubin measurement (mass/volu me) 0.4 mg/dL 0.1-1.0 Serum or plasma alkaline phosphatase alejandro surement (enzymatic activity/volume) 84 U/L 40-136 Serum or plasma aspartate aminotransfera se measurement (enzymatic activity/volume) 19 U/L 5-34 Serum or plasma alanine aminotransferase measurement (enzymatic activity/volume) 15 U/L 0-55 Serum or plasma protein measurement (mass/volume) 7.3 g/dL 6.4-8.2 Serum or plasma albumin measurement (mass/volume) 4.0 g/dL 3.2-4.5 CALCIUM CORRECTED 9.3 mg/dL 8.5-10.1 Magnesium - 02/21/19 21:20 Magnesium 2.1 mg/dL 1.6-2.4 Serum or plasma troponin i.cardiac measu rement (mass/volume) - 02/21/19 21:20 Serum or plasma troponin i.cardiac measurement (mass/v olume) < ng/mL <0.028 PT panel in platelet poor plasma by coag ulation assay - 02/21/19 21:20 Prothrombin time (PT) in platelet poor plasma by coagu lation assay 12.7 s 12.2-14.7 INR in platelet poor plasma or blood by coagulation as say 0.9 0.8-1.4 Activated partial thromboplastin time (a PTT) in platelet poor plasma bycoagulation assay - 02/21/19 21:20 Activated partial thromboplastin time (a PTT) in platelet poor plasma bycoagulation assay 20 s 24-35 Myoglobin, serum - 02/21/19 21:20 Myoglobin, serum 40.8 ng/mL 10.0-92.0 Lipase - 02/21/19 21:20 Lipase 49 U/L 8-78 Serum or plasma troponin i.cardiac measu rement (mass/volume) - 02/21/19 23:37 Serum or plasma troponin i.cardiac measurement (mass/v olume) < ng/mL <0.028 Encounters ACCT No. Visit Date/Time Discharge Status Pt. Type Provider Facility Loc./Unit Complaint [id number] 02/21/2019 21:02:00 00:42:00 DIS Outpatient DENICE MCNEILL, RYLIE [facility] ER ALLERGIC REACTION,TROUB LE BREATHING [id number] 08/20/2018 11:55:00 23:59:59 CLS Preadmit FERNY GOMEZ MD [facility] CARD CAD, CHEST PAIN [id number] 08/11/2018 08:11:00 019 08:36:00 DIS Emergency MOY GANNON MD [facility] ER RASH ON BOTH LE GS [id number] 11/20/2017 12:28:00 018 23:59:59 CLS Outpatient MARTHA GRANADOS MD [facility] RAD LEFT KIDNEY NODULE,LLQ ABDOMINAL PAIN,LUQ ABD PAIN [id number] 04/11/2017 16:34:00 018 23:59:59 CLS Preadmit MARTHA GRANADOS MD [facility] REHAB ACUTE LBP; WEAKNESS; SC IATICA [id number] 04/11/2017 10:01:00 018 13:03:00 DIS Emergency RYLIE GALDAMEZ MD [facility] ER RIGHT RIB PAIN [id number] 02/15/2017 06:56:00 017 12:35:00 DIS Outpatient ARPAN YOUNGBLOOD MD [facility] NON FUNCTION STIMULATOR , REFLUX [id number] 02/09/2017 05:29:00 017 11:31:00 DIS Outpatient ARPAN YOUNGBLOOD MD [facility] PREOP REFLUX, NON FUNCTION ST IMULATOR [id number] 11/24/2016 10:17:00 017 09:00:00 DIS Outpatient KAIT HECK MD [facility] VAGINAL PROLAPS E, CYSTOCELE [id number] 11/21/2016 14:03:00 017 15:00:00 DIS Outpatient KAIT HECK MD [facility] PREOP VAGINAL PROLAPS E, CYSTOCELE [id number] 05/05/2015 06:48:00 016 13:04:00 DIS Outpatient FERNY GOMEZ MD [facility] CATH ABNORMAL STRESS TEST, C P , CAD [id number] 05/05/2013 08:42:00 014 23:59:59 CLS Outpatient BRANDO PIZARRO MD [facility] RAD SCREENING [id number] 12/02/2012 09:10:00 013 23:59:59 CLS Outpatient BRANDO PIZARRO MD [facility] RAD MEMORY LOSS,HTN [id number] 08/30/2012 11:17:00 013 23:59:59 CLS Outpatient FERNY GOMEZ MD [facility] CARD DYSPNEA,HTN [id number] 05/02/2017 07:11:00 Document Registration [id number] 04/21/2015 11:02:00 Document Registration [id number] 05/03/2012 10:14:00 Document Registration [id number] 01/29/2012 14:19:00 Document Registration [id number] 10/04/2011 11:39:00 Document Registration [id number] 06/20/2010 07:31:00 Document Registration [id number] 05/19/2010 12:41:00 Document Registration [id number] 12/28/2008 06:21:00 Document Registration [id number] 12/15/2008 08:48:00 Document Registration [id number] 04/03/2008 09:03:00 Document Registration [id number] 05/31/2007 08:14:00 Document Registration [id number] 01/23/2007 10:55:00 Document Registration [id number] 07/11/2006 19:22:00 Document Registration [id number] 09/23/2005 03:40:00 Document Registration [id number] 09/20/2005 06:06:00 Document Registration
== END 2019-02-22 00:42 | disposition home or self-care (01) ==
LOC: EDUNIT# 21:01 → ER 21:02
DX: T78.3XXA Angioneurotic edema, initial encounter (principal); A08.4 Viral intestinal infection, unspecified; R07.9 Chest pain, unspecified; I10 Essential (primary) hypertension; E78.5 Hyperlipidemia, unspecified; K21.9 Gastro-esophageal reflux disease without esophagitis; F41.9 Anxiety disorder, unspecified; F32.9 Major depressive disorder, single episode, unspecified; Z86.73 Personal history of transient ischemic attack (TIA), and cerebral infarction without residual deficits; Z88.2 Allergy status to sulfonamides; Z88.0 Allergy status to penicillin; Z88.8 Allergy status to other drugs, medicaments and biological substances; Z79.82 Long term (current) use of aspirin; Z90.710 Acquired absence of both cervix and uterus; Z96.653 Presence of artificial knee joint, bilateral
CPT/HCPCS: 36415; 71045; 80053; 83690; 83735; 83874; 84484; 85025; 85610; 85730; 93005; 93041; 96361; 96374; 96375; 96376

== ENCOUNTER → 2019-08-19 | Outpatient (CLI) | payer MEDICARE, MEDICAID | LOC: CARD 11:41 | PROVIDERS: ATTEND Family Medicine | DX: R06.02 Shortness of breath (principal); I36.1 Nonrheumatic tricuspid (valve) insufficiency | CPT/HCPCS: 93306 ==

== ENCOUNTER → 2019-09-08 | Outpatient (CLI) | payer MEDICARE, MEDICAID ==
[~2019-09-08] VITALS: Ht 160 cm; Wt 74.0 kg
[~2019-09-08] MED LIST changes: +CATHETER FLUSH 10 ML SYR IV PRN; +REGADENOSON 0.4 MG/5 ML SYR (LEXISCAN) IV ONE
[2019-09-08 09:54] VITALS: BP 147/82
[2019-09-08 09:56] VITALS: BP 121/79
--- NOTE | 2019-09-08 11:25 | Cardiology Stress Test Report ---
Stress Test Report Date of Procedure/Referring: Date of Procedure: Sep 08, 2019 PCP Hillary Solis Admitting Physician Yasir Solares MD Indications: Coronary artery disease Baseline Heart Rate: 92 Baseline Blood Pressure: Blood Pressure Systolic: 121 Blood Pressure Diastolic: 79 Baseline EKG: Baseline EKG: normal sinus rhythm Summary: After exiting the procedure, patient was brought to the nuclear stress laboratory, stress test was performed Patient received 0.4 mg Lexiscan for stress test, ECG, heart rate and blood pressure were monitored continuously. Resting and stress dose of radio tracer were injected, imaging was acquired and reviewed in short axis, horizontal long axis and vertical long axis views. TID 1 SSS 9 SDS 6 EF 48% Conclusion: 1. Patient tolerated Lexiscan well 2. No significant EKG changes during test, occasional PVCs noted 3. Reversible ischemia involving the whole inferior wall and inferolateral wall 4. Normal left ventricular size with mild hypokinesia at the inferior wall, EF 48 percent FERNY GOMEZ MD Sep 08, 2019 11:25
== END ==
LOC: CARD 08:01
PROVIDERS: ATTEND Physician Assistant
DX: I25.10 Atherosclerotic heart disease of native coronary artery without angina pectoris (principal); I10 Essential (primary) hypertension; E78.5 Hyperlipidemia, unspecified; I25.89 Other forms of chronic ischemic heart disease
CPT/HCPCS: 78452; 93017; A9502

== ENCOUNTER → 2019-09-15 | Outpatient (CLI) | payer MEDICARE, MEDICAID ==
[~2019-09-15] MED LIST changes: +AMLO5TAB9 PO; +ATEN100T PO; +BUSP5TAB59 PO; -CATHETER FLUSH 10 ML SYR IV PRN; +MELO15TA39 PO; +OMEP40CA27 PO; +PANT40TA3 PO; +POTA20TA8 PO; -REGADENOSON 0.4 MG/5 ML SYR (LEXISCAN) IV ONE; +RT-ALBUINH INH
== END ==
LOC: LABNPT 06:39
PROVIDERS: ATTEND Internal Medicine Cardiovascular Disease
DX: Z01.818 Encounter for other preprocedural examination (principal); Z20.828 Contact with and (suspected) exposure to other viral communicable diseases
CPT/HCPCS: 87635

== ENCOUNTER → 2019-09-24 | Outpatient (CLI) | payer MEDICARE, MEDICAID ==
[2019-09-24 08:19] LABS: HEMOGLOBIN 8.4 G/DL (11.5-16.0); MEAN PLATELET VOLUME 10.9 FL (7.4-10.4); RED CELL DISTRIBUTION WIDTH 23.1 % (10.0-14.5); WHITE BLOOD COUNT 5.4 10^3/uL (4.3-11.0)
== END ==
LOC: LAB 08:06
PROVIDERS: ATTEND Family Medicine
DX: D64.89 Other specified anemias (principal)
CPT/HCPCS: 36415; 85027

== ENCOUNTER 2019-11-03 14:03 | Outpatient (CLI) | payer MEDICARE, MEDICAID ==
[~2019-11-03] VITALS: Ht 157.5 cm; Wt 72.7 kg
[2019-11-03 14:15] VITALS: BP 156/91
[2019-11-03] MEDS ORDERED: NS IV 500 ML 500 ML IV SCH (14:45)
[2019-11-03 15:20] VITALS: BP 133/84
[2019-11-03 15:35] VITALS: BP 137/80
[2019-11-03] MEDS ORDERED: ASPI-875 PO (15:58)
[2019-11-03] MEDS ORDERED: VENL50TA2 PO (15:58)
[2019-11-03 17:05] VITALS: BP 134/82
[2019-11-03 17:35] VITALS: BP 133/76
[2019-11-03 19:48] VITALS: BP 136/81
== END 2019-11-03 20:10 | disposition home or self-care (01) ==
LOC: SDC 14:03
PROVIDERS: ATTEND Family Medicine
DX: K92.2 Gastrointestinal hemorrhage, unspecified (principal); D64.9 Anemia, unspecified
CPT/HCPCS: 36430; 85018; 86850; 86900; 86901; 86920; P9016; 36415

== ENCOUNTER 2019-11-10 05:34 | Outpatient (RCR) | payer MEDICARE, MEDICAID ==
[~2019-11-10] VITALS: Ht 157 cm; Wt 78.7 kg
[~2019-11-10 05:34] MED LIST changes: +ASPI-875 PO; +VENL50TA2 PO
[2019-11-10 09:00] VITALS: BP 131/82
[2019-11-10 09:39] LABS: BASOPHILS # (AUTO) 0.1 10^3/uL (0.0-0.1); BASOPHILS % (AUTO) 2 % (0-10); EOSINOPHILS # (AUTO) 0.2 10^3/uL (0.0-0.3); EOSINOPHILS % (AUTO) 4 % (0-10); HEMATOCRIT 25 % (35-52); HEMOGLOBIN 7.5 G/DL (11.5-16.0); LYMPHOCYTES # (AUTO) 0.8 X 10^3 (1.0-4.0); LYMPHOCYTES % (AUTO) 17 % (12-44); MEAN CORPUSCULAR HEMOGLOBIN 24 PG (25-34); MEAN CORPUSCULAR HGB CONC 30 G/DL (32-36); MEAN CORPUSCULAR VOLUME 82 FL (80-99); MEAN PLATELET VOLUME 10.4 FL (7.4-10.4); MONOCYTES # (AUTO) 0.3 X 10^3 (0.0-1.0); MONOCYTES % (AUTO) 7 % (0-12); NEUTROPHILS # (AUTO) 3.2 X 10^3 (1.8-7.8); NEUTROPHILS % (AUTO) 70 % (42-75); PLATELET COUNT 357 10^3/uL (130-400); RED CELL DISTRIBUTION WIDTH 19.9 % (10.0-14.5); WHITE BLOOD COUNT 4.6 10^3/uL (4.3-11.0)
== END 2019-11-10 10:37 | disposition home or self-care (01) ==
LOC: PREOP 05:34
PROVIDERS: ATTEND Surgery
DX: Z01.812 Encounter for preprocedural laboratory examination (principal); K63.9 Disease of intestine, unspecified; Z20.828 Contact with and (suspected) exposure to other viral communicable diseases; Z11.2 Encounter for screening for other bacterial diseases
CPT/HCPCS: 85025; 86850; 86900; 86901; 87081; U0002; 36415; 87635

== ENCOUNTER → 2019-11-11 | Outpatient (CLI) | payer MEDICARE, MEDICAID ==
[~2019-11-11] VITALS: Ht 157.5 cm; Wt 77.6 kg
[2019-11-11] VITALS (7 sets, daily range): BP systolic 159–175; BP diastolic 94–99
[~2019-11-11] MED LIST changes: +NS IV 500 ML 500 ML IV ONE; +NS IV 500 ML 500 ML IV SCH; +NS IV 500 ML 500 ML ONE
[2019-11-11 15:12] LABS: HEMOGLOBIN 10.1 G/DL (11.5-16.0)
== END ==
LOC: SDC 08:06
PROVIDERS: ATTEND Surgery
DX: D64.9 Anemia, unspecified (principal); Z20.828 Contact with and (suspected) exposure to other viral communicable diseases
CPT/HCPCS: 36430; 85014; 85018; 86850; 86900; 86901; 86920; P9016; 36415

== ENCOUNTER 2019-11-12 09:00 | Inpatient (IN) | payer MEDICARE, MEDICAID ==
[~2019-11-12] VITALS: Ht 157 cm; Wt 78.7 kg
[2019-11-12] VITALS (11 sets, daily range): BP systolic 122–170; BP diastolic 81–104
[~2019-11-12 09:00] MED LIST changes: -NS IV 500 ML 500 ML IV ONE; -NS IV 500 ML 500 ML IV SCH; -NS IV 500 ML 500 ML ONE
[2019-11-12] MEDS ORDERED: LACTATED RINGERS 1,000 ML IV PRN (09:10)
[2019-11-12] MEDS ORDERED: CLINDAMYCIN 600 MG/50 ML IVPB 50 ML IV ONE (09:15)
[2019-11-12] MEDS ORDERED: BUP/EPI 0.5% 1:200,000 (MARCAINE) 10ML VIAL IJ ONE (09:32)
[2019-11-12] MEDS ORDERED: ONDANSETRON 4 MG/2 ML (SDV) Z0FRAN ONE ×2 (10:09→14:08)
[2019-11-12] MEDS ORDERED: fentaNYL INJECTION 100 MCG/2 ML AMP ONE ×2 (10:09→23:25)
[2019-11-12] MEDS ORDERED: MIDAZOLAM 2 MG/2 ML (VERSED) VIAL ONE (10:09)
[2019-11-12] MEDS ORDERED: LIDOCAINE PF 2% 5 ML (XYLOCAINE) VIAL ONE (10:09)
[2019-11-12] MEDS ORDERED: proPOfol 200 MG/20 ML (DIPRIVAN) VIAL IV ONE (10:09)
[2019-11-12] MEDS ORDERED: NEOSTIGMINE 3 MG/3 ML VIAL ONE (10:13)
[2019-11-12] MEDS ORDERED: GLYCOPYRROLATE 0.2 MG/ML (ROBINUL) 2 ML VIAL ONE (10:13)
[2019-11-12] MEDS ORDERED: SEVOFLURANE (ULTANE) 15 ML INHAL SOLN ONE ×4 (10:14→13:25)
[2019-11-12] MEDS ORDERED: MIDAZOLAM 2 MG/2 ML (VERSED) VIAL IV ONE (10:45)
--- NOTE | 2019-11-12 12:40 | Progress Note-Pre Operative ---
Pre-Operative Progress Note H&P Reviewed The H&P was reviewed, patient examined and no changes noted. Time Seen by Provider: 12:37 Date H&P Reviewed: Nov 12, 2019 Time H&P Reviewed: 12:38 Pre-Operative Diagnosis: Bleeding jejunal polyp RA NEAL DO Nov 12, 2019 12:40
[2019-11-12] MEDS ORDERED: PHENYLEPHRINE 100 MCG/ML 10 ML (ANESTHESIA) SYR ONE (13:01)
[2019-11-12] MEDS ORDERED: BUPIVACAINE 0.5% 30 ML (SENSORCAINE) VIAL ONE (13:27)
[2019-11-12] MEDS: LACTATED RINGERS 1,000 ML IV SCH ×2 (13:33→20:22)
--- NOTE | 2019-11-12 13:35 | Progress Note-Post Operative ---
Post-Operative Progess Note Surgeon (s)/Employment Office Clerk (s) Surgeon RA NEAL DO Employment Office Clerk: Josue Pre-Operative Diagnosis Bleeding jejunal polyp Post-Operative Diagnosis Same Procedure & Operative Findings Date of Procedure 11/12/19 Procedure Performed/Findings Small bowel resection Anesthesia Type GET Estimated Blood Loss Estimated blood loss (mL): minimal Specimens/Packing Specimens Removed portion of jejunum RA NEAL DO Nov 12, 2019 13:35
[2019-11-12] MEDS ORDERED: morphine INJ 10 MG/ML 1ML (SYR OR VIAL) ONE (14:08)
[2019-11-12] MEDS: ONDANSETRON 4 MG/2 ML (SDV) Z0FRAN IVP PRN ×4 (14:12→23:37)
[2019-11-12] MEDS ORDERED: morphine INJ 10 MG/ML 1ML (SYR OR VIAL) IVP ONE (14:15)
[2019-11-12] MEDS ORDERED: HYDROmorphone 2 MG/ML VIAL (DILAUDID) IV ONE (14:15)
--- NOTE | 2019-11-12 15:14 | NUR ---
PO ROWE admitted to room 423-1, with an admitting diagnosis of small bowel resection, on 11/12/19 from OR via bed, accompanied by staff .PO ROWE introduced to surroundings, call light, bed controls, phone, TV, temperature control, lights, meal times, smoking policy, visitor policy, side rail policy, bathrooms and showers. Patient Rights given to patient in the handbook. PO ROWE verbalizes understanding that [facility] is not responsible for the loss or damage to any personal effects or valuables that are kept in the patients posession during their hospitalization. The following Patient Care Plans and discharge were discussed with the patient. PO ROWE verbalizes understanding of Interdisciplinary Patient Education. Patient and family were informed about the Rapid Response Team and its purpose.
[2019-11-12] MEDS ORDERED: HYDROcodone/APAP 7.5 MG/325 MG (LORTAB, LORCET PLUS) TABLET PO ONE (15:20)
[2019-11-12] MEDS: HYDROcodone/APAP 7.5 MG/325 MG (LORTAB, LORCET PLUS) TABLET PO PRN ×2 (15:25→20:22)
[2019-11-12] MEDS ORDERED: PATIENT MAY USE OWN MEDS, ALL MC SCH (18:30)
[2019-11-12] MEDS: CLINDAMYCIN 600 MG/50 ML IVPB 50 ML IV SCH (20:22)
[2019-11-12] MEDS ORDERED: fentaNYL INJECTION 100 MCG/2 ML AMP IVP ONE (23:30)
[2019-11-12] MEDS ORDERED: ENALAPRIL 2.5 MG (VASOTEC) TAB PO ONE (23:45)
[2019-11-12] MEDS ORDERED: ENALAPRIL 5 MG (VASOTEC) TAB ONE (23:52)
--- NOTE | 2019-11-12 23:54 | NUR ---
VAL NOTIFIED OF PT BP 170/100. ONE TIME DOSE OF VASOTEC 2.5MG PO ORDERED.
[2019-11-13] MEDS: HYDROcodone/APAP 7.5 MG/325 MG (LORTAB, LORCET PLUS) TABLET PO PRN ×3 (03:10→20:11)
--- NOTE | 2019-11-13 03:43 | OPERATIVE REPORT ---
DATE OF SERVICE: PREOPERATIVE DIAGNOSIS: Bleeding small bowel polyp. POSTOPERATIVE DIAGNOSIS: Bleeding small bowel polyp, pending pathology. PROCEDURE: Small bowel resection. SURGEON: Matthew Hermosillo DO ART TEACHER: Ernie Salas DO ANESTHESIA: General endotracheal tube. SPECIMEN: Portion of jejunum. BLOOD LOSS: Minimal. FLUIDS: Per anesthesia. POSTOPERATIVE CONDITION: Stable. INDICATION FOR PROCEDURE: The patient is a 63-year-old female who continues to have anemia and bleeding. EGD and colonoscopy did not find anything and she had a small bowel capsule endoscopy that saw a bleeding polyp in the mid jejunum. FINDINGS: The patient had a polyp found in the mid jejunum, resected this portion of small bowel and sent to pathology. PROCEDURE NOTE: After informed consent was obtained, the patient was brought to the operating room, placed on the operating table in supine position. She was sterilely prepped and draped in normal fashion. Midline incision made with #10 blade, carried down through the skin and subcutaneous tissue. This was an approximately 8 cm incision below the xiphoid, but above the umbilicus, carried down through the skin and then deepened down to subcutaneous tissue with Bovie electrocautery down to the fascia. Fascia was incised with Bovie electrocautery, bluntly entered the abdomen, swept a finger around and then advanced this incision just a little bit to be able to get the small bowel, able to grasp the small bowel and then pull the small bowel out all the way up to the ligament of Treitz. I then started running the small bowel from the ligament of Treitz and able to palpate a polyp. At this point then made a defect in the mesentery on either side of the polyp about 4 cm away and then above this made a defect in the antimesenteric border of the small intestine and then placed a MICHAEL-75 one side in either limb of the small intestine, clamped it and held it for 30 seconds, then fired thereby creating a [id number] functional end-to-end anastomosis, then took a reload of the MICHAEL-75 across this enteroenterotomy, clamped and fired, thereby closing this. There was some bleeding from the edges, this was controlled with 3-0 Vicryl pop-offs, 3 [id number] sutures were needed and then closed the mesenteric defect with a 3-0 Vicryl pop-off. We had also taken the mesentery below the small intestine in 3 bites with hemostats placing the hemostat across the mesentery and then cutting off the mesentery above the hemostats and then tying under the hemostats with 0 Vicryl ties, then took this off table, opened up and could see the polyp. It was not bleeding at this time. There did look like there was some bleeding in the rest of the small bowel, but ran the small bowel from this proximal portion all the way to the terminal ileum and cecum, did not find any other polyps, did not see any other pathology. At this point, then dropped the intestine back into the abdomen, placed the omentum over this area and then closed the incision with #1 double stranded PDS suture running from superior portion to inferior portion tying to itself, copiously irrigated incisions with normal saline and closed the skin with niya. Area was cleaned and dried, dressing placed. The patient tolerated the procedure. She was transferred to recovery room in stable condition. Sponge, instrument and needle count correct at the end of the case. Dr. Salas assisted in this case helping to make incisions, close incisions, identify anatomy and hold anatomy out of the way. Job ID: [id number] DocumentID: [id number] Dictated Date: 11/12/2019 16:39:11 Products Mechanical Design Engineer Date: 11/13/2019 03:29:31 Dictated By: DO TIARRA VILLA
[2019-11-13 05:00] VITALS: BP 166/101
[2019-11-13] MEDS: ONDANSETRON 4 MG/2 ML (SDV) Z0FRAN IVP PRN ×3 (05:12→20:11)
[2019-11-13] MEDS: CLINDAMYCIN 600 MG/50 ML IVPB 50 ML IV SCH (05:12)
[2019-11-13] MEDS ORDERED: FUROSEMIDE 20 MG (LASIX) TAB ONE (05:57)
[2019-11-13] MEDS ORDERED: amLODIPine 5 MG (NORVASC) TAB ONE (05:57)
--- NOTE | 2019-11-13 05:58 | NUR ---
VAL NOTIFIED OF PT BP 166/101. ORDERS TO GIVE AM DOSE OF NORVASC AND LASIX AT THIS TIME OBTAINED.
[2019-11-13] MEDS ORDERED: FUROSEMIDE 20 MG (LASIX) TAB PO ONE (06:00)
[2019-11-13] MEDS ORDERED: amLODIPine 5 MG (NORVASC) TAB PO ONE (06:00)
[2019-11-13] MEDS: LACTATED RINGERS 1,000 ML IV SCH ×3 (06:43→22:46)
[2019-11-13 08:00] VITALS: BP 137/82
--- NOTE | 2019-11-13 08:13 | Progress Note - Surgery ---
ELVIRA SAUCEDO MED STUDENT 11/13/19 0813: Subjective Date Seen by a Provider: Nov 13, 2019 Time Seen by a Provider: 07:45 Subjective/Events-last exam Patient states she has started on clear liquids and tolerates well, she has been able to walk around the bed but no the hallway secondary to occasional nausea that comes about when she does so. She has not had any bowel movements and has not passed gas yet to her knowledge. Incision shows no erythema or drainage and is moderately tender around it. Otherwise she denies and significant complaints, denies CP, tachycardia, SOB, wheezing. Objective Exam Vital Signs Date Time Temp Pulse Resp B/P (MAP) Pulse Ox O2 Delivery O2 Flow Rate FiO2 11/13/19 05:00 36.8 93 18 166/101 (122) 98 Nasal Cannula 1.00 11/12/19 23:38 36.8 91 16 170/100 (123) 95 Nasal Cannula 1.00 11/12/19 20:29 Nasal Cannula 1.00 11/12/19 19:16 36.3 102 18 144/94 (111) 94 Room Air 11/12/19 15:20 36.6 87 18 150/101 (117) 94 Nasal Cannula 1.50 11/12/19 14:50 36.4 18 141/89 (106) 93 Nasal Cannula 2 11/12/19 14:50 Room Air 11/12/19 14:40 18 146/91 (109) 93 Nasal Cannula 2 11/12/19 14:38 Room Air 11/12/19 14:30 18 143/94 (110) 99 OxyMask 3 11/12/19 14:28 OxyMask 6 11/12/19 14:25 OxyMask 6 11/12/19 14:20 18 143/94 (110) 100 OxyMask 6 11/12/19 14:10 OxyMask 6 11/12/19 14:10 18 122/91 (101) 100 OxyMask 6 11/12/19 14:00 18 130/94 (106) 99 OxyMask 6 11/12/19 13:54 36.2 16 122/81 (95) 99 OxyMask 6 11/12/19 13:54 OxyMask 6 11/12/19 09:00 95 Room Air 11/12/19 09:00 37.0 95 16 139/104 95 Room Air I & O 11/13/19 07:00 Intake Total 2800 ml Output Total 1025 ml Balance 1775 ml Capillary Refill : Less Than 3 Seconds General Appearance: WD/WN, Mild Distress HEENT: No Scleral Icterus (L), No Scleral Icterus (R) Neck: Normal Inspection, Non Tender Respiratory: Chest Non Tender, Lungs Clear, Normal Breath Sounds Cardiovascular: Regular Rate, Rhythm, Normal Peripheral Pulses Peripheral Pulses: 2+ Carotid (R), 2+ Carotid (L), 2+ Radial Pulses (R), 2+ Radial Pulses (L) Gastrointestinal: no pulsatile mass, tenderness (moderate surrounding incision) Extremity: Normal Inspection, Non Tender, No Calf Tenderness Neurologic/Psychiatric: Alert, Normal Mood/Affect Skin: Normal Color, Warm/Dry MATTHEW HERMOSILLO DO 11/13/19 1156: Subjective Time Seen by a Provider: 11:31 Subjective/Events-last exam Pt seen and examined, states she is a little nauseous and pain is not completely controlled. "I'm a 6 right now". Review of Systems Pulmonary: No Dyspnea, No Cough Cardiovascular: No: Chest Pain, Palpitations Gastrointestinal: Nausea, Abdominal Pain; No: Vomiting Objective Exam General Appearance: WD/WN, Anxious Respiratory: Lungs Clear, Normal Breath Sounds, No Accessory Muscle Use, No Respiratory Distress Cardiovascular: Regular Rate, Rhythm, No Murmur Gastrointestinal: soft, tenderness (moderate surrounding incision) Assessment/Plan Assessment/Plan Assessment/Plan S/P SBR HTN Pt was placed on her home meds for elevated BP and also wrote for Vasotec. She was told to increase ambulation and IS use. Will increase diet. Supervisory-Addendum Brief Verification & Attestation Participated in pt care: history, MDM, physical Personally performed: exam, history, MDM Care discussed with: Medical Student Procedures: n/a Verification and Attestation of Medical Student E/M Service A medical student performed and documented this service. I then reviewed and verified all information documented by the medical student and made modifications to such information, when appropriate. I personally performed a p hysical exam, medical decision making and then discussed any differences between the notes and made revisions as necessary to create one note. Matthew Hermosillo , 11/13/19 , 11:56 ELVIRA SAUCEDO MED STUDENT Nov 13, 2019 08:13 MATTHEW HERMOSILLO DO Nov 13, 2019 11:56
[2019-11-13] MEDS: PANTOPRAZOLE 40 MG (PROTONIX) VIAL IVP SCH (08:25)
[2019-11-13] MEDS ORDERED: FUROSEMIDE 20 MG (LASIX) TAB PO SCH (09:00)
[2019-11-13] MEDS ORDERED: clonazePAM 0.5 MG (KlonoPIN) TAB PO SCH (09:00)
[2019-11-13] MEDS ORDERED: NON-FORMULARY MEDICATION 1 EA EA (Omeprazole 40 MG) PO SCH (09:00)
[2019-11-13] MEDS ORDERED: LEVOTHYROXINE 100 MCG (LEVOTHROID) TAB PO SCH (09:00)
[2019-11-13] MEDS ORDERED: ASPIRIN E.C. 81 MG (ECOTRIN) TAB PO SCH (09:00)
[2019-11-13] MEDS ORDERED: NON-FORMULARY MEDICATION 1 EA EA (Meloxicam 15 MG) PO SCH (09:00)
[2019-11-13] MEDS ORDERED: amLODIPine 5 MG (NORVASC) TAB PO SCH ×2 (09:00)
[2019-11-13] MEDS ORDERED: KCL 20 MEQ TAB (K-DUR) PO SCH (09:00)
[2019-11-13] MEDS ORDERED: GEMFIBROZIL 600 MG (LOPID) TAB PO SCH (09:00)
[2019-11-13] MEDS ORDERED: VENLAFAXINE 50 MG (EFFEXOR) TABLET PO SCH ×2 (09:00→12:00)
[2019-11-13] MEDS ORDERED: OMEPRAZOLE 40 MG PO SCH (09:00)
[2019-11-13] MEDS: LEVOTHYROXINE 100 MCG (LEVOTHROID) TAB PO SCH (10:48)
[2019-11-13] MEDS: KCL 20 MEQ TAB (K-DUR) PO SCH (10:48)
[2019-11-13 12:00] VITALS: BP 140/83
[2019-11-13] MEDS: busPIRone 5 MG (BUSPAR) TAB PO SCH (12:53)
--- NOTE | 2019-11-13 13:03 | NUR ---
HOME MEDICATIONS PT WAS NOT ABLE TO USE D/T LABEL DIFFERENCE THAN HOW PT TAKES AT HOME WERE GIVEN TO PT SIGNIFICANT OTHER TO TAKE HOME.
--- NOTE | 2019-11-13 14:09 | Physician Query Clarification ---
PQ-Further Specificity Admission/Discharge Admission Date: Nov 12, 2019 at 09:00 Discharge Date: The medical record reflects the following clinical scenario: Dr. Neal, History/Risk Factors: Neoplasm, uncertain behavior with bleeding Anemia Clinical Findings: Hgb 10.1 Treatment: Excision of bleeding polyp (jejunum). Question: Can you further specify anemia per the clinical indicators above? Please document a response in the Progress Notes or Discharge Summary. 1. Acute blood loss anemia. 2. Chronic blood loss anemia. 3. Other, with explanation of the clinical findings. 4. Clinically undetermined, no explanation for the clinical findings. PHYSICIAN RESPONSE Can you specify per above: 2 Please remember a lack of response to the above will prompt a phone page by CDI/Coding staff. In responding to this query, please exercise your independent professional judgment. The purpose of this communication is to more accurately reflect the complexity of your patients condition. The fact that a question is asked does not imply that any particular answer is desired or expected. Thank you for your timely response to this clarification. Requestors name: Ashly Bird [facility] Phone # ext [phone] or [phone] THIS PHYSICIAN QUERY FORM IS A PERMANENT PART OF THE MEDICAL RECORD ASHLY BIRD Nov 13, 2019 14:09 RA NEAL DO Nov 17, 2019 15:37
--- NOTE | 2019-11-13 14:49 | Anesthesia-General Post-Op ---
General Patient Condition Mental Status/LOC: Same as Preop Cardiovascular: Satisfactory Nausea/Vomiting: Absent Respiratory: Satisfactory Pain: Controlled Complications: Absent Post Op Complications Complications None Follow Up Care/Instructions Patient Instructions None needed. Anesthesia/Patient Condition Patient Condition Patient is doing well, C/O some abd. pain which is to be expected, stable vital signs, no apparent adverse anesthesia problems. DINH GRIMM DO Nov 13, 2019 14:49
[2019-11-13 15:59] VITALS: BP 126/87
[2019-11-13 19:42] VITALS: BP 141/88
[2019-11-14] MEDS: LACTATED RINGERS 1,000 ML IV SCH ×2 (04:26→13:58)
[2019-11-14] MEDS: HYDROcodone/APAP 7.5 MG/325 MG (LORTAB, LORCET PLUS) TABLET PO PRN (04:32)
[2019-11-14] MEDS ORDERED: GEMFIBROZIL 600 MG (LOPID) TAB PO SCH ×2 (07:00→09:00)
[2019-11-14] MEDS ORDERED: VENLAFAXINE 50 MG (EFFEXOR) TABLET PO SCH (07:00)
[2019-11-14] MEDS: LEVOTHYROXINE 100 MCG (LEVOTHROID) TAB PO SCH (08:04)
[2019-11-14] MEDS: busPIRone 5 MG (BUSPAR) TAB PO SCH (08:05)
[2019-11-14] MEDS: PANTOPRAZOLE 40 MG (PROTONIX) VIAL IVP SCH (08:05)
[2019-11-14] MEDS: KCL 20 MEQ TAB (K-DUR) PO SCH (08:05)
--- NOTE | 2019-11-14 08:37 | Progress Note - Surgery ---
ELVIRA SAUCEDO MED STUDENT 11/14/19 0837: Subjective Date Seen by a Provider: Nov 14, 2019 Time Seen by a Provider: 07:48 Subjective/Events-last exam Patient states she is doing much better than yesterday. She reports having walked around the surgical floor a few times with only minor soreness and having used the IS twice this morning. She has been tolerating a normal diet, noting she has not eaten until now which may be why she has not had a bowel movement as well as the fact that she has been too nauseous until now to keep food down. Otherwise pain is controlled, she denies CP, tachycardia, SOB, wheezing and cough. Objective Exam Vital Signs Date Time Temp Pulse Resp B/P (MAP) Pulse Ox O2 Delivery O2 Flow Rate FiO2 11/14/19 05:24 37.3 11/14/19 04:32 37.3 11/13/19 21:00 37.3 11/13/19 20:30 91 Room Air 2.00 11/13/19 20:11 37.3 11/13/19 19:42 37.3 108 18 141/88 (105) 91 Room Air 11/13/19 15:59 36.5 92 18 126/87 (100) 95 Room Air 11/13/19 12:00 36.2 83 20 140/83 (102) 97 Nasal Cannula 2.00 11/13/19 09:53 Nasal Cannula 1.00 11/13/19 09:00 98 Nasal Cannula 1.00 I & O 11/14/19 07:00 Intake Total 1400 ml Output Total 2440 ml Balance -1040 ml Capillary Refill : Less Than 3 SecondsLess Than 3 Seconds General Appearance: No Apparent Distress, WD/WN, Anxious HEENT: No Scleral Icterus (L), No Scleral Icterus (R) Neck: Normal Inspection, Non Tender Respiratory: No Accessory Muscle Use, No Respiratory Distress, Rales (occasional, expiratory, L sided); No Respiratory Distress, No Wheezing Cardiovascular: Regular Rate, Rhythm, Normal Peripheral Pulses Peripheral Pulses: 2+ Carotid (R), 2+ Carotid (L), 2+ Radial Pulses (R), 2+ Radial Pulses (L) Gastrointestinal: soft, tenderness (moderate surrounding incision) Extremity: Normal Inspection, Non Tender, No Calf Tenderness Neurologic/Psychiatric: Alert, Normal Mood/Affect Skin: Normal Color, Warm/Dry Assessment/Plan Assessment/Plan Assessment/Plan S/P SBR HTN. MATTHEW HERMOSILLO DO 11/14/19 1318: Subjective Time Seen by a Provider: 13:12 Subjective/Events-last exam Pt seen and examined, pain controlled and tolerating diet. Objective Exam Gastrointestinal: soft, tenderness ( mild at incision) Assessment/Plan Assessment/Plan Assessment/Plan D/C IV and D/C home Supervisory-Addendum Brief Verification & Attestation Participated in pt care: history, MDM, physical Personally performed: exam, history, MDM Care discussed with: Medical Student Procedures: n/a Verification and Attestation of Medical Student E/M Service A medical student performed and documented this service. I then reviewed and verified all information documented by the medical student and made modifi cations to such information, when appropriate. I personally performed a physical exam, medical decision making and then discussed any differences between the notes and made revisions as necessary to create one note. Matthew Hermosillo , 11/14/19 , 13:18 ELVIRA SAUCEDO MED STUDENT Nov 14, 2019 08:37 MATTHEW HERMOSILLO DO Nov 14, 2019 13:18
[2019-11-14] MEDS ORDERED: clonazePAM 1 MG (KlonoPIN) TAB PO SCH (09:00)
[2019-11-14] MEDS ORDERED: MELOXICAM 7.5 MG (MOBIC) TABLET PO SCH (09:00)
[2019-11-14] MEDS ORDERED: FUROSEMIDE 20 MG (LASIX) TAB PO SCH (09:00)
[2019-11-14] MEDS ORDERED: amLODIPine 5 MG (NORVASC) TAB PO SCH (09:00)
[2019-11-14] MEDS ORDERED: ASPIRIN 81 MG CHEW (CHILDREN'S ASA) PO SCH ×2 (09:00)
[2019-11-14] MEDS ORDERED: clonazePAM 0.5 MG (KlonoPIN) TAB PO SCH (09:00)
[2019-11-14] MEDS ORDERED: HYDR-34 PO (13:16)
--- NOTE | 2019-11-14 13:16 | Discharge Inst-Surgical ---
Discharge Inst-Surgical Depart Medication/Instructions New, Converted or Re-Newed RX: RX Given to Pt/Family Patient Instructions Follow up Appt: Make appointment for 1 week. [phone] Instructions: No lifting greater than 20 pounds. No strenuous activity. May shower in 24 hours, no tub bath or soaking. Use incentive spirometer at home as directed. No Smoking Skin/Wound Care: May remove bandages in am. You need to leave the Dermabond on incision it will fall off on it's own. Symptoms to Report: Appetite Changes, Extremity Discoloration, Numbness/Tingling, Swelling Increased, Bleeding Excessive, Eyesight Changes, Pain Increased, Urine Color Change, Constipation(Persistent), Fever over 101 degree F, Pain/Pressure in chest, Urinating Difficulty, Cough Up/Vomit Blood, Heart Beat Irreg/Pounding, Pain/Pressure in jaw, Cramps in feet or legs, Lightheadedness, Pain/Pressure in shoulder, Diarrhea(Persistent), Memory Changes Suddenly, Questions/Concerns, Weight gain consecutive days, Dizziness/Fainting, Nausea/Vomiting, Shortness of Breath, Weight gain over 2 pounds If questions or concerns contact your physician Or seek help at emergency department. Activity Activity as Tolerated: Yes Activity Instructions: Avoid Stress to Incision Driving Instructions: No Driving/Refer to Dr. Tyson Discharge Diet: No Restrictions Diet After 24 Hours: Clear Liquid if Nauseous If Any Problems/Questions/Issu: Contact Your Physician, Go to Emergency Room Skin/Wound Care Infection Signs and Symptoms: Increased Redness, Foul Odor of Wound, Increased Drainage, Skin Itchy or Has a Rash, Increased Swelling, Temperature Above 101 F Bathing Instructions: Shower Stitches/Veronica/Dermabond Dis: Care of RA Luna DO Nov 14, 2019 13:16
--- NOTE | 2019-11-14 13:42 | NUR ---
F/U APPOINTMENT SCHEDULED WITH DR NEAL ON 11/19 @300PM
--- NOTE | 2019-11-14 13:58 | NUR ---
PO ROWE demonstrates understanding of discharge instructions and accurately returns instructions upon questioning. Copy of Post-Discharge Instructions and Medication Discharge Instructions given to PT. PO ROWE is to manage continuing needs after discharge. Patients belongings returned to PT. Skin dry and intact; no breakdown noted. Patient discharged from 423-1 on at 1358. OP ROWE left floor via WC, accompanied by STAFF.
[2019-11-14 13:59] VITALS: BP 141/88
--- NOTE | 2019-11-14 14:47 | NUR ---
RD ASSESSMENT PMHx: HTN; GERD; hiatal hernia; hypothyroidism PT INTERACTION: Pt was awake and pleasant during nutrition assessment. Pt states current appetite is "not too bad," and that it is normally good. Note avg PO intake 25-50% x1d, per chart review. Pt states following a regular diet at home, and has no issues with chewing/swallowing food. Pt states some recent issues with nausea and vomiting. Pt states no recent issues with constipation or diarrhea, and that her last BM was 11/10. Note pt not currently on bowel regimen per chart review. Pt states recent 10# wt gain x4mon, which she attributes to being inactive. Note recent 15# wt gain x2mon, per chart review. ABNORMAL NUTRITION-RELATED LAB VALUES No labs drawn at this time Est. kcal needs: 1575 kcal | 20 kcal/kg Est. Pro needs: 63 g Pro | 0.8 g Pro/kg PES STATEMENT: Inadequate oral intake (NI-2.1) related to loss of appetite | nausea | vomiting as evidenced by pt interview | avg PO intake 25-50% x1d INTERVENTION: Note pt currently on DYS2 Mechanically Altered diet. Would recommend advancing diet to Regular diet, as pt has no current issues with chewing/swallowing food. Pt may benefit from nutrition supplementation if PO intake declines. Encouraged pt to eat when able. Will continue to follow and reassess as pt needs, intake, and status change. MONITOR/EVALUATE: PO Intake; Plan of Care; Hydration Status; Weight Status; Lab Values Kristyn Choi, MS, RD, LD
== END 2019-11-14 13:58 | disposition home or self-care (01) | DRG 345 ==
LOC: 4TH 09:00 → SURG 09:01 → 4TH 14:52
PROVIDERS: ADMIT Surgery; ATTEND Surgery
PROC: 0DBA0ZX Excision of Jejunum, Open Approach, Diagnostic (ICD-10-PCS; principal; 2019-11-12 13:01)
DX: D37.2 Neoplasm of uncertain behavior of small intestine (principal); K92.2 Gastrointestinal hemorrhage, unspecified; F33.1 Major depressive disorder, recurrent, moderate; I25.10 Atherosclerotic heart disease of native coronary artery without angina pectoris; I10 Essential (primary) hypertension; E78.5 Hyperlipidemia, unspecified; E03.9 Hypothyroidism, unspecified; E66.09 Other obesity due to excess calories; D50.0 Iron deficiency anemia secondary to blood loss (chronic); K58.9 Irritable bowel syndrome, unspecified; G31.84 Mild cognitive impairment of uncertain or unknown etiology; F41.0 Panic disorder [episodic paroxysmal anxiety]; I08.1 Rheumatic disorders of both mitral and tricuspid valves; K21.9 Gastro-esophageal reflux disease without esophagitis; K44.9 Diaphragmatic hernia without obstruction or gangrene; Z96.653 Presence of artificial knee joint, bilateral; Z86.73 Personal history of transient ischemic attack (TIA), and cerebral infarction without residual deficits; Z68.31 Body mass index [BMI] 31.0-31.9, adult
CPT/HCPCS: 88307; 94664

== ENCOUNTER → 2019-12-29 | Outpatient (CLI) | payer MEDICARE, MEDICAID ==
[~2019-12-29] MED LIST changes: -OXYC-465 PO; +OXYC-556 PO; -PANT40TA3 PO; +PANT40TA52 PO
== END ==
LOC: LABNPT 05:36
PROVIDERS: ATTEND Internal Medicine Cardiovascular Disease
DX: Z01.812 Encounter for preprocedural laboratory examination (principal); Z20.828 Contact with and (suspected) exposure to other viral communicable diseases
CPT/HCPCS: 87635

== ENCOUNTER 2020-01-21 09:04 | Day surgery (SDC) | payer MEDICARE, MEDICAID ==
[2020-01-21] VITALS (8 sets, daily range): BP systolic 154–174; BP diastolic 78–108
[~2020-01-21] VITALS: Ht 160 cm; Wt 76.0 kg
[~2020-01-21 09:04] MED LIST changes: +AMLO-250 PO; -AMLO5TAB9 PO
[2020-01-21] MEDS ORDERED: HEParin (CATH LAB) 2,000 ML IV ONE (09:05)
[2020-01-21] MEDS ORDERED: LIDOCAINE 1% INJ 20 ML 20 ML VIAL ONE (09:05)
[2020-01-21] MEDS ORDERED: NS IV 1000 ML 1,000 ML ONE (09:05)
[2020-01-21] MEDS ORDERED: NS IV 1000 ML 1,000 ML IV SCH ×2 (09:07→11:33)
[2020-01-21 09:30] LABS: HEMOGLOBIN 11.3 g/dL (11.5-16.0); MEAN PLATELET VOLUME 10.1 fL (9.0-12.2); WHITE BLOOD COUNT 4.9 10^3/uL (4.3-11.0)
[2020-01-21 09:36] LABS: BILIRUBIN,URINE NEGATIVE (NEGATIVE); CLARITY,URINE SL CLOUDY; COLOR,URINE YELLOW; GLUCOSE, URINE (UA) NEGATIVE (NEGATIVE); KETONES,URINE NEGATIVE (NEGATIVE); LEUKOCYTE ESTERASE ,URINE TRACE (NEGATIVE); NITRITE,URINE NEGATIVE (NEGATIVE); PROTEIN,URINE NEGATIVE (NEGATIVE)
[2020-01-21 09:43] LABS: RBC,URINE 0-2 /HPF
[2020-01-21 09:43] LABS: INR 0.9 (0.8-1.4); PROTHROMBIN TIME PATIENT 12.7 SEC (12.2-14.7)
[2020-01-21 09:44] LABS: BACTERIA,URINE FEW /HPF
--- NOTE | 2020-01-21 09:48 | Diagnostic Imaging Report ---
INDICATION: Pre heart catheterization. Patient has chest pain. TIME OF EXAM: 09:24 a.m. COMPARISON: Correlation is made with prior chest from 09/17/2019. The heart size is normal. The pulmonary vascularity is unremarkable. The lungs are clear. No infiltrate, effusion or pneumothorax is detected. IMPRESSION: No acute cardiopulmonary process is detected. Dictated by: Dictated on workstation # [id number]
[2020-01-21 09:53] LABS: ALANINE AMINOTRANSFERASE 16 U/L (0-55); ALKALINE PHOSPHATASE 88 U/L (40-136); BILIRUBIN,TOTAL 0.4 MG/DL (0.1-1.0); BUN/CREATININE RATIO 25; CALCIUM 9.2 MG/DL (8.5-10.1); CARBON DIOXIDE 22 MMOL/L (21-32); CHLORIDE 108 MMOL/L (98-107); CHOLESTEROL 173 MG/DL (< 200); GFR ESTIMATED > 60; GLUCOSE 99 MG/DL (70-105); HDL CHOLESTEROL 81 MG/DL (40-60); SODIUM 142 MMOL/L (135-145); TOTAL PROTEIN 7.7 GM/DL (6.4-8.2); TRIGLYCERIDES 92 MG/DL (<150); VLDL CHOLESTEROL 18 MG/DL (5-40)
[2020-01-21] MEDS ORDERED: IBUP-2185 PO (09:53)
[2020-01-21] MEDS ORDERED: POTA20TA15 PO (09:53)
[2020-01-21] MEDS ORDERED: MULT-1021 PO (09:53)
[2020-01-21] MEDS ORDERED: MULT-1018 PO (09:53)
--- NOTE | 2020-01-21 09:57 | NUR ---
SPOKE WITH THE PT AND WENT THRU THE EXT MED HISTORY TO COMPLETE THE MED REC ACCORDING TO THE PT SHE TAKES HER MEDS ONLY ONCE DAILY: GEMFIBROZIL 600MG DIRECTIONS ARE BID PT ONLY TAKES ONCE DAILY VENLAFAXINE 50MG DIRECTIONS ARE QID PT ONLY TAKES 1 TAB DAILY BUSPIRONE 5MG DIRECTIONS ARE BID PT ONLY TAKES 1 TAB DAILY OTC MEDS: ASPIRIN 81 MTV IBUPROFEN HAIR/SKIN/NAILS
[2020-01-21] MEDS ORDERED: fentaNYL INJECTION 100 MCG/2 ML AMP ONE (10:42)
[2020-01-21] MEDS ORDERED: VERAPAMIL 5 MG/2 ML (CALAN) VIAL IV ONE (10:42)
[2020-01-21] MEDS ORDERED: NITRO DRIP 25000 MCG/D5W 250 ML IV ONE (10:42)
[2020-01-21] MEDS ORDERED: HEParin 1000 UNIT/ML (10ML VIAL) FOR BOLUS ONE (10:42)
[2020-01-21] MEDS ORDERED: MIDAZOLAM 5 MG/5 ML (VERSED) VIAL ONE (10:42)
--- NOTE | 2020-01-21 10:58 | Cardiac Procedure Note-CS/ASA ---
Pre-Procedure Note Pre-Op Procedure Note H&P Reviewed The H&P was reviewed, patient examined and no changes noted. Date H&P Reviewed: Jan 21, 2020 Time H&P Reviewed: 10:58 Conscious Sedation Pre-Proced Time 10:58 ASA Score 3 For ASA 3 and 4: Consider anesthesia and medical clearance. Also, for patients with a history of failed moderate sedation consider anesthesia. Airway Lungs Heart ASA score ASA 1: a normal healthy patient ASA 2: a patient with a mild systemic disease (mid diabetes, controlled hypertension, obesity x ASA 3: a patient with a severe systemic disease that limits activity (angina, COPD, prior Myocardial infarction) ASA 4: a patient with an incapacitating disease that is a constant threat to life (CHF, renal failure) ASA 5: a moribund patient not expected to survive 24 hrs. (ruptured aneurysm) ASA 6: a declared brain- patient whose organs are being harvested. For emergent operations, add the letter E after the classification Mallampati Classification Grade 3 Sedation Plan Analgesia, Amnesia, Plan communicated to team members, Discussed options with patient/fam, Discussed risks with patient/fam The patient is an appropriate candidate to undergo the planned procedure, sedation, and anesthesia. The patient immediately re-assessed prior to indication. FERNY GOMEZ MD Jan 21, 2020 10:58
--- NOTE | 2020-01-21 11:35 | Discharge Inst-Post CATH ---
Discharge Inst-CATH/EP Problems Reviewed?: Yes Post Cardiac Cath/EP D/C Inst Follow Up/Plan Appointment with Dr. Gomez's office in 4-6 weeks <b>CARDIAC CATH/EP PROCEDURE DISCHARGE INSTRUCTIONS</b> ACTIVITY * Go Home directly and rest. * Limit activity of the leg (or wrist if it was used) for 7 days including aerobics, swimming, jogging, bicycling, etc. * Restrict stair-climbing for 7 days if possible, if not, climb up with your non-cath leg, then bring together on the same step. * Avoid lifting, pushing, pulling or excessive movement of the affected extremity for 7 days. * Customary sexual activity may be resumed after 2 days-use caution not to use a position that strains or causes pain to the affected extremity. * No driving for 24 hours. * NO SMOKING. * Avoid straining for bowel movements for 7 days. * Gentle walking on level ground is allowed. * Returning to work will depend on the type of procedure and the results. Your doctor will discuss this with you. CALL YOUR DOCTOR FOR ANY OF THE FOLLOWING: *If bleeding from the puncture site occurs- Apply gentle pressure to site with clean cloth and call your doctor or EMS. * If a knot or lump forms under the skin, increases in size, or causes pain. * If bruising appears to be worsening or moving further down your leg instead of disappearing. * Temperature above 101 F. CARE OF YOUR GROIN INCISION; * Bruising or purple discoloration of the skin near the puncture site is common. * You may shower only, no bathtub bathing for 5 days. Be careful to avoid slipping as your leg may feel stiff. * If a closure device was used on your femoral artery, please see the attached guide regarding care of the device and your leg. * Leave dressing on FOR 24 hours. CARE OF YOUR WRIST INCISION; * Bruising or purple discoloration of the skin near the puncture site is common. * You may shower. * DO NOT submerge wrist. * Leave dressing on FOR 24 hours. FERNY GOMEZ MD Jan 21, 2020 11:35
--- NOTE | 2020-01-21 11:42 | Cardiac Cath Report ---
Cardiac Cath Report Physician (s)/Upkeep Worker (s) Physician FERNY GOMEZ MD Pre-Procedure Diagnosis Pre-Procedure Diagnosis: coronary artery disease Post-Procedure Note Procedure Start Date: Jan 21, 2020 Name of Procedure: Left heart catheterization Left ventriculogram Aortic arch angiogram Findings/Procedure Note PROCEDURE NOTE: 64-year-old lady with history of hypertension, hyperlipidemia, has been having chest pain, had an abnormal stress test, scheduled for cardiac catheterization possible PTCA. After explaining the procedure to the patient, all pros and cons were explained, all questions were answered. The patient signed the consent and then she was placed on the cardiac catheterization laboratory. Groin was prepped SL fashion local anesthesia was used. Sheath placed in the right radial artery, Mertzon catheter was used, thus of the left ventricular cavity, left ventriculogram was done, return to the right coronary artery and angiogram was done then I had some selective injection initially in the left system then was able to acquire good visualization of the left system, angiogram was done, had significant tortuosity in entering the aortic arch, I'll evaluate her aortic arch angiogram at the end of the procedure. At the end of the procedure the sheath was removed. Vascular band was used FINDINGS: Hemodynamics LV 133/13, end-diastolic pressure of 13 Aorta 132/19 and mean of 105 ANATOMY: Left Main is free of obstructive disease Left Anterior Descending is slightly tortuous with mild disease nonobstructive disease Left Circumflex is small nondominant with no significant obstructive disease Right Coronory Artery is large dominant artery with mild disease nonobstructive disease LV Gram was done showing normal left ventricular size and systolic function estimated ejection fraction 60 percent Aorta evaluation done with aortic arch angiogram showing normal aortic arch, mild hypertensive changes, no dissection or aneurysm, normal origin of the brachiocephalic artery, normal origin of the left carotid artery, the left subclavian artery was not well-visualized. CONCLUSION: 1. Large dominant right coronary artery, mild coronary artery disease nonobstructive disease 2. Normal left ventricular size and systolic function estimated ejection fraction 60 percent 3. Normal aortic arch and great vessels of the neck DISCUSSION AND RECOMMENDATION: Medical therapy is recommended no intervention is needed Anesthesia Type: Conscious Sedation Estimated blood loss (mL): 5 ml Contrast Amount: 72 ml Total Radiation Dose: 314 mGy Post-Procedure Diagnosis Post-operative diagnosis: Chest pain Coronary artery disease Hypertension Hyperlipidemia FERNY GOMEZ MD Jan 21, 2020 11:42
== END 2020-01-21 14:00 | disposition home or self-care (01) ==
LOC: CATH 09:04 → SDC 11:57 → CATH 14:00
PROVIDERS: ATTEND Internal Medicine Cardiovascular Disease
DX: I25.10 Atherosclerotic heart disease of native coronary artery without angina pectoris (principal); I10 Essential (primary) hypertension; E78.5 Hyperlipidemia, unspecified; Z88.0 Allergy status to penicillin; Z88.8 Allergy status to other drugs, medicaments and biological substances; Z79.899 Other long term (current) drug therapy; F41.9 Anxiety disorder, unspecified; E66.09 Other obesity due to excess calories; Z68.29 Body mass index [BMI] 29.0-29.9, adult; E03.9 Hypothyroidism, unspecified; K58.9 Irritable bowel syndrome, unspecified; F41.0 Panic disorder [episodic paroxysmal anxiety]; F33.1 Major depressive disorder, recurrent, moderate; Z87.19 Personal history of other diseases of the digestive system; Z86.73 Personal history of transient ischemic attack (TIA), and cerebral infarction without residual deficits; Z96.653 Presence of artificial knee joint, bilateral; I65.23 Occlusion and stenosis of bilateral carotid arteries; D62 Acute posthemorrhagic anemia; Z79.82 Long term (current) use of aspirin; Z79.890 Hormone replacement therapy; Z11.2 Encounter for screening for other bacterial diseases
CPT/HCPCS: 36221; 36430; 71045; 80053; 80061; 81000; 85027; 85610; 85730; 87081; 87088; 93458; C1894; 36415

== ENCOUNTER → 2020-07-09 | Outpatient (CLI) | payer MEDICARE, MEDICAID ==
[~2020-07-09] MED LIST changes: +IBUP-2185 PO; -LISI-552 PO; +LISI20TA26 PO; +MULT-1018 PO; +MULT-1021 PO
--- NOTE | 2020-07-09 12:25 | Diagnostic Imaging Report ---
INDICATION: Routine screening. Comparison is made with prior mammogram 02/14/2017 and 05/05/2013. 2-D and 3-D bilateral screening mammography was performed with CAD. Scattered fibroglandular densities are identified bilaterally. The parenchymal pattern is stable. No mass or malignant appearing microcalcifications are seen. There are benign calcifications. Axillae are unremarkable. IMPRESSION: BI-RADS Category 2 No mammographic features suspicious for malignancy are identified. ACR BI-RADS Category 2: Benign findings. Result letter will be mailed to the patient. Note: At least 10% of breast cancer is not imaged by mammography. Dictated by: Dictated on workstation # [id number]
== END ==
LOC: RAD 08:15
PROVIDERS: ATTEND Family Medicine
DX: Z12.31 Encounter for screening mammogram for malignant neoplasm of breast (principal)
CPT/HCPCS: 77063; 77067

== ENCOUNTER 2021-06-15 20:44 | Emergency (ER) | payer MEDICARE, MEDICAID ==
[~2021-06-15] VITALS: Ht 160 cm; Wt 86.2 kg
[~2021-06-15 20:44] MED LIST changes: -OMEP40CA27 PO; +OMEP40CA6 PO; +POTA-169 PO; +POTA-179 PO; -POTA20TA8 PO
[2021-06-15 20:45] VITALS: BP 184/122
--- NOTE | 2021-06-15 20:53 | ED Lower Extremity ---
General Stated Complaint: R KNEE PAIN Source: patient Exam Limitations: no limitations History of Present Illness Date Seen by Provider: Jun 15, 2021 Time Seen by Provider: 20:50 Initial Comments To ER with c/o right lateral and posterior knee pain. Has been dealing with the flu this week, drinkning lots of fluids. She notes the need to urinate and repositioned her legs when she felt a popping sensation and sudden onset of severe right knee pain posteriorly and laterally. This was while she was laying on the couch. There was no weight on the knee when this happened. She is unable to bear weight on the right leg due to pain. Bilateral knee replacement in the early by Dr. Espinosa. Onset: this evening Severity: moderate Pain/Injury Location: right knee Method of Injury: twisted Modifying Factors: Worse With Movement Allergies and Home Medications Allergies Coded Allergies: Sulfa (Sulfonamide Antibiotics) (Verified Allergy, Severe, ANAPHYLAXIS, 11/10/19) niacin (Verified Allergy, Severe, ANAPHYLAXIS, 11/10/19) penicillin G (Verified Allergy, Severe, ANAPHYLAXIS, 11/10/19) Patient Home Medication List Home Medication List Reviewed: Yes Amlodipine Besylate (Amlodipine Besylate) 5 Mg Tablet, 5 MG PO DAILY, (Reported) Entered as Reported by: TRICE BALDWIN on 09/17/19 0745 Aspirin ([place] Aspirin) 81 Mg Tablet.dr, 81 MG PO DAILY, (Reported) Entered as Reported by: GRANT KUHN on 11/03/19 1558 Buspirone HCl (Buspirone HCl) 5 Mg Tablet, 5 MG PO DAILY, (Reported) Entered as Reported by: TRICE BALDWIN on 09/17/19 0745 Clonazepam (Clonazepam) 0.5 Mg Tablet, 0.5 MG PO DAILY, (Reported) Entered as Reported by: NEVAEH CEJA on 02/09/17 1123 Furosemide (Furosemide) 20 Mg Tablet, 20 MG PO DAILY, (Reported) Entered as Reported by: NEVAEH CEJA on 02/09/17 1123 Gemfibrozil (Lopid) 600 Mg Tablet, 600 MG PO DAILY, (Reported) Entered as Reported by: TRICE BALDWIN on 05/05/15 0754 Hydrocodone/Acetaminophen (Hydrocodone-Acetamin 5-325 mg) 1 Each Tablet, 1 TAB PO Q4H PRN for PAIN-MODERATE (5-7) Prescribed by: BIPIN CINTRON on 06/15/212118 Ibuprofen (Ibuprofen) 200 Mg Capsule, 400 MG PO Q6H PRN for PAIN-MILD (1-4), (Reported) Entered as Reported by: AISLINN HELM on 01/21/20 09 Levothyroxine Sodium (Levothyroxine Sodium) 100 Mcg Tablet, 100 MCG PO DAILY, (Reported) Entered as Reported by: NEVAEH CEJA on 02/09/17 112 Meloxicam (Meloxicam) 15 Mg Tablet, 15 MG PO DAILY PRN for MUSCLE CRAMPS, (Reported) Entered as Reported by: TRICE BALDWIN on 09/17/19 0745 Multivit-Min/Folic Acid/Biotin (Hair, Skin & Nails Caplet) 1 Each Tablet, 1 EACH PO DAILY, (Reported) Entered as Reported by: AISLINN HELM on 01/21/20 09 Multivits-Min/Iron/FA/Lutein (Centrum Silver Women Tablet) 1 Each Tablet, 1 EACH PO DAILY, (Reported) Entered as Reported by: AISLINN HELM on 01/21/20 09 Omeprazole (Omeprazole) 40 Mg Capsule.dr, 40 MG PO DAILY, (Reported) Entered as Reported by: TRICE BALDWIN on 09/17/19 0745 Potassium Chloride (Potassium Chloride) 20 Meq Tab.er.prt, 20 MEQ PO DAILY, (Reported) Entered as Reported by: AISLINN HELM on 01/21/20 09 Venlafaxine HCl (Venlafaxine HCl) 50 Mg Tablet, 50 MG PO DAILY, (Reported) Entered as Reported by: GRANT KUHN on 11/03/19 1558 Review of Systems Constitutional: see HPI EENTM: see HPI Respiratory: no symptoms reported Cardiovascular: no symptoms reported Genitourinary: no symptoms reported Musculoskeletal: see HPI Skin: no symptoms reported Psychiatric/Neurological: No Symptoms Reported Past Wlovlcd-Ovqfjz-Pddiot Hx Immunizations Up To Date Tetanus Booster (TDap): Unknown Seasonal Allergies Seasonal Allergies: No Past Medical History Surgeries: Yes ( BILAT TOTAL KNEE REPLACEMENTS, BREAST REDUCTION, CATARACTS,BLADDER SLING) Bladder Surgery, Gallbladder, Hysterectomy, Rectal Respiratory: Yes Sleep Apnea Currently Using CPAP: No Currently Using BIPAP: No Cardiac: Yes Heart Murmur, High Cholesterol, Hypertension Neurological: Yes (1985-AFTER HYSTERECTOMY) Stroke Reproductive Disorders: No SKIP TRACER History: Hysterectomy Sexually Transmitted Disease: No HIV/AIDS: No Genitourinary: No Gastrointestinal: Yes (JEJUNAL MASS) Gastroesophageal Reflux, Hiatal Hernia Musculoskeletal: Yes (SCIATICA) Endocrine: Yes HEENT: No Loss of Vision: Denies Hearing Impairment: Denies Cancer: No Psychosocial: Yes Anxiety, Depression Integumentary: No Blood Disorders: No Adverse Reaction/Blood Tranf: No (HAS HAD BLOOD WITH NO REACTION) Family Medical History Hypertension Physical Exam Vital Signs Vital Signs - First Documented 06/15/21 20:45 Temp 36.7 Pulse 97 Resp 22 B/P (MAP) 184/122 (142) Pulse Ox 98 O2 Delivery Room Air Capillary Refill : Height, Weight, BMI Height: 5'3.00" Weight: 170lbs. 8.0oz. 77.234201yj; 29.68 BMI Method:Stated General Appearance: WD/WN, no apparent distress Neck: non-tender, full range of motion Respiratory: no respiratory distress, no accessory muscle use Hips: bilateral hip non-tender, bilateral hip normal inspection, bilateral hip normal range of motion Legs: bilateral leg non-tender, bilateral leg normal inspection, bilateral leg normal range of motion Knees: right knee pain, right knee soft tissue tenderness Ankles: bilateral ankle non-tender, bilateral ankle normal inspection, bilateral ankle normal range of motion Feet: bilateral foot non-tender, bilateral foot normal inspection, bilateral foot normal range of motion Neurologic/Psychiatric: alert, normal mood/affect, oriented x 3 Skin: normal color, warm/dry Progress/Results/Core Measures Results/Orders My Orders Orders - BIPIN CINTRON APRN Hydrocodone/Apap 5/325 Tablet (Lortab 5 (06/15/21 21:00) Knee, Right, 3 Views (06/15/21 20:49) Ketorolac Injection (Toradol Injection) (06/15/21 21:15) Medications Given in ED Current Medications Medications Dose Ordered Sig/Bear Route Start Time Stop Time Status Last Admin Dose Admin Acetaminophen/ Hydrocodone Bitart 1 ea ONCE ONCE PO 06/15/21 21:00 06/15/21 21:01 DC 06/15/21 20:58 1 EA Vital Signs/I&O 06/15/21 20:45 Temp 36.7 Pulse 97 Resp 22 B/P (MAP) 184/122 (142) Pulse Ox 98 O2 Delivery Room Air Departure Communication (Admissions) Family Conversation NAME: [facility] REC#: [id number] PT STATUS: REG ER : 1955 PHYSICIAN: BIPIN CINTRON APRN ADMIT DATE: 06/15/21/ER Signed Date of Exam:06/15/21 KNEE, RIGHT, 3 VIEWS CLINICAL HISTORY: Right knee pain. COMPARISON: None. TECHNIQUE: 3 views of the right knee. FINDINGS: Unicompartmental arthroplasty changes are visualized in the medial aspect of the right knee. There is lateral angulation of the tibial component, which may represent periprosthetic loosening or fracture. A small joint effusion is seen in the right knee. No focal osseous lesions are present. IMPRESSION: 1. Unicompartmental arthroplasty changes in the medial aspect of the right knee. The tibial component appears somewhat angulated and may represent hardware loosening or periprosthetic fracture. Recommend correlation with patient history and, if indicated, nuclear medicine bone scan to further evaluate. 2. Small right knee joint effusion. Dictated by: Dictated on workstation # [id number] Dict: 06/15/212114 Trans: 06/15/212123 [facility] [id number] Interpreted by: MECCA BRENNER DO Electronically signed by: MECCA BRENNER DO 06/15/212123-pts history is not consistent with a fracture as this popping sensation and immediate pain occurred while on the couch without weight on the knee. She'll be given crutches or a walker and dc to home with outpatient Ortho follow up. Impression Primary Impression: Internal derangement of right knee Disposition: HOME, SELF-CARE Condition: Stable Departure-Patient Inst. Decision time for Depature: 21:17 Referrals: MARTHA GRANADOS MD (PCP/Family) Primary Care Physician Patient Instructions: Internal Derangement of the Knee Add. Discharge Instructions: 1. Lavon Espinosa from [facility] tomorrow to make an appointment to be seen. Return to Er for any concerns. Scripts Hydrocodone/Acetaminophen (Hydrocodone-Acetamin 5-325 mg) 1 Each Tablet 1 TAB PO Q4H PRN for PAIN-MODERATE (5-7), #10 TAB Prov: BIPIN CINTRON APRN 06/15/21 BIPIN CINTRON APRN Jun 15, 2021 20:53
[2021-06-15] MEDS ORDERED: HYDROcodone/APAP 5 MG/325 MG (LORTAB) TAB PO ONE (21:00)
[2021-06-15] MEDS ORDERED: KETOROLAC 30 MG/ML VIAL IM ONE (21:15)
[2021-06-15] MEDS ORDERED: ACHD5005 PO (21:18)
--- NOTE | 2021-06-15 21:22 | Diagnostic Imaging Report ---
CLINICAL HISTORY: Right knee pain. COMPARISON: None. TECHNIQUE: 3 views of the right knee. FINDINGS: Unicompartmental arthroplasty changes are visualized in the medial aspect of the right knee. There is lateral angulation of the tibial component, which may represent periprosthetic loosening or fracture. A small joint effusion is seen in the right knee. No focal osseous lesions are present. IMPRESSION: 1. Unicompartmental arthroplasty changes in the medial aspect of the right knee. The tibial component appears somewhat angulated and may represent hardware loosening or periprosthetic fracture. Recommend correlation with patient history and, if indicated, nuclear medicine bone scan to further evaluate. 2. Small right knee joint effusion. Dictated by: Dictated on workstation # [id number]
== END 2021-06-15 22:00 | disposition home or self-care (01) ==
LOC: EDUNIT# 20:44 → ER 20:45
DX: M23.91 Unspecified internal derangement of right knee (principal)
CPT/HCPCS: 73562; 99281

== ENCOUNTER → 2021-12-23 | Outpatient (CLI) | payer MEDICARE, MEDICAID ==
[~2021-12-23] MED LIST changes: +CATHETER FLUSH 10 ML SYR IV PRN; +HOLD METFORMIN - RECEIVED CONTRAST 20 ML VIAL IV SCH; +IOHEXOL 350 MG/ML 100 ML (OMNIPAQUE 350) VIAL IV ONE; +NS 100 ML (IVPB) BAG IV ONE
[2021-12-23 07:56] LABS: CREATININE SERUM 0.98 MG/DL (0.60-1.30)
--- NOTE | 2021-12-23 10:11 | Diagnostic Imaging Report ---
PROCEDURE: CT abdomen and pelvis with contrast. TECHNIQUE: Multiple contiguous axial images were obtained through the abdomen and pelvis after administration of intravenous contrast. Auto Exposure Controls were utilized during the CT exam to meet ALARA standards for radiation dose reduction. All CT scans use one or more of the following dose optimizing techniques: automated exposure control, MA and/or KvP adjustment based on patient size and exam type or iterative reconstruction. INDICATION: Abdominal hernia. CORRELATION is made with prior CT from 09/19/2019. The lung bases are clear. Circumscribed low-attenuation lesions within the liver appear to be stable and are most likely cysts. Gallbladder is surgically absent. There is no biliary ductal dilatation. The pancreas and spleen are unremarkable. No adrenal mass is identified. The kidneys are unremarkable. Aorta is calcified but nonaneurysmal. There is a midline ventral hernia in the mid abdomen with defect measuring approximately 7.2 cm transverse diameter. Fat as well as a portion of the mid transverse colon enter the hernia sac. There is no evidence of strangulation or bowel obstruction. There also appears to be small bowel entering the hernia sac just inferior to the transverse colon. Small bowel is without strangulation or obstruction. No free fluid or fluid collection in the abdomen or pelvis is seen. Bladder is decompressed. Uterus is surgically absent. IMPRESSION: 1. Hepatic cyst. 2. Midline ventral hernia containing small and large bowel. No strangulation or bowel obstruction is identified. Dictated by: Dictated on workstation # [id number]
== END ==
LOC: RAD 08:15
PROVIDERS: ATTEND Surgery
DX: K43.2 Incisional hernia without obstruction or gangrene (principal); K76.89 Other specified diseases of liver; K43.9 Ventral hernia without obstruction or gangrene
CPT/HCPCS: 36415; 74177; 82565; 84520

== ENCOUNTER 2022-05-22 05:30 | Outpatient (CLI) | payer MEDICARE, MEDICAID ==
[~2022-05-22] VITALS: Ht 160 cm; Wt 81.8 kg
[~2022-05-22 05:30] MED LIST changes: -CATHETER FLUSH 10 ML SYR IV PRN; -HOLD METFORMIN - RECEIVED CONTRAST 20 ML VIAL IV SCH; -IOHEXOL 350 MG/ML 100 ML (OMNIPAQUE 350) VIAL IV ONE; -NS 100 ML (IVPB) BAG IV ONE
[2022-06-07] MEDS ORDERED: LOSA25TA41 PO (14:30)
== END 2022-06-07 14:35 | disposition home or self-care (01) ==
LOC: PREOP 05:30
PROVIDERS: ATTEND Surgery
DX: Z01.818 Encounter for other preprocedural examination (principal)

== ENCOUNTER 2022-05-29 13:30 | Inpatient (IN) | payer MEDICARE, MEDICAID ==
[~2022-05-29] VITALS: Ht 160 cm; Wt 81.8 kg
[2022-06-07] MEDS ORDERED: LOSA25TA41 PO (14:30)
[2022-06-14] VITALS (8 sets, daily range): BP systolic 147–162; BP diastolic 100–126
--- OUTSIDE RECORDS SUMMARY | 2022-06-14 09:17 | XMS REPORT ---
Author Author [facility] Address Unknown Phone Unavailable Care Team Providers Care Shoe Repairer Name Role Phone DOMINGUEZ GUTIÉRREZ Unavailable PROBLEMS No Information ALLERGIES No Information ENCOUNTERS from 1955 to 2022-05-26 Encounter Location Date Provider Diagnosis [facility] [address] [facility] [id number] [address] [place] [address] Jun, DOMINGUEZ GUTIÉRREZ Encounter for immuni zation Z23 IMMUNIZATIONS Vaccine Route Administration Date Status PRIVATE FLULAVAL QUAD 0.5ML (6 MO AND UP) 2020 IM Intramuscular Dec 14, 2020 Administered 2nd Dose HRSA MODERNA, COVID-19, 0.5mL IM Intramuscular June Administered 1st Dose HRSA MODERNA, COVID-19, 0.5mL IM Intramuscular May Administered SOCIAL HISTORY Sex Assigned At : Social History Observation Description Sex Assigned At Unknown REASON FOR REFERRAL No Information VITAL SIGNS No information MEDICATIONS No Information PROCEDURES No Information RESULTS No Results REASON FOR VISIT COVID-19 Vaccine Dose 2 Goals Section No Information Health Concerns No Information MEDICAL EQUIPMENT No Information MENTAL STATUS No Information FUNCTIONAL STATUS No Information ASSESSMENTS Encounter Date Diagnosis Assessment Notes Treatment Notes Treatm ent Clinical Notes Jun, Encounter for immunization (ICD-10 - Z23 ) PLAN OF TREATMENT No Information Insurance Providers Payer Name Payer Address Payer Phone Insured Name Patient Relati onship to Insured Coverage Start Date Coverage End Date Subscriber Number Group Nu mber MED[place]ID OF [place] [address] [facility] [id number] Lennie Moore Self - patient is the insured [id number] [employer] MEDICARE Part A [address] [facility] [address] Jenifer Moore Self - patient is the insured [id number] [employer] Medicare Premier Plus PPO [address] [facility] [phone] Jenifer Moore Self - patient is the insured [id number]
--- OUTSIDE RECORDS SUMMARY | 2022-06-14 09:17 | XMS REPORT ---
Author Author [facility] Address Unknown Phone Unavailable Care Team Providers Care Acreage Reporter Name Role Phone GUTIÉRREZDOMINGUEZ Unavailable PROBLEMS No Information ALLERGIES No Information ENCOUNTERS from 1955 to 2022-04-17 Encounter Location Date Provider Diagnosis [facility] [address] [facility] [id number] [place] [address] May, DOMINGUEZ GUTIÉRREZ Encounter for immuni zation Z23 [...] Results REASON FOR VISIT COVID-19 Vaccine Dose 1 Goals Section No Information Health Concerns No Information MEDICAL EQUIPMENT No Information MENTAL STATUS No Information FUNCTIONAL STATUS No Information ASSESSMENTS Encounter Date Diagnosis Assessment Notes Treatment Notes Treatm ent Clinical Notes May, Encounter for immunization (ICD-10 - Z23 ) PLAN OF TREATMENT No Information Insurance Providers Payer Name Payer Address Payer Phone Insured Name Patient Relati onship to Insured Coverage Start Date Coverage End Date Subscriber Number Group Nu mber [employer] Medicare Premier Plus PPO [address] [facility] [phone] Jenifer Moore Self - patient is the insured [id number] [facility] MEDICARE Part A FI [address] [facility] [address] Jenifer Moore Self - patient is the insured [id number] MEDICAID OF [place] [address] [facility] [address] Lennie Moore Self - patient is the insured [id number]
[2022-06-14] MEDS ORDERED: CLINDAMYCIN 600 MG/50 ML IVPB 50 ML IV ONE ×2 (09:30→15:50)
[2022-06-14] MEDS: LACTATED RINGERS 1,000 ML IV PRN ×4 (10:05→17:20)
[2022-06-14] MEDS ORDERED: VENL150T PO (10:28)
[2022-06-14] MEDS ORDERED: MIDAZOLAM 2 MG/2 ML (VERSED) VIAL IV ONE (10:30)
[2022-06-14] MEDS ORDERED: ROCURONIUM 50 MG/5 ML (ZEMURON) VIAL IV ONE ×3 (10:42→14:31)
[2022-06-14] MEDS ORDERED: fentaNYL INJ 100 MCG/2 ML AMP ONE (10:42)
[2022-06-14] MEDS ORDERED: ONDANSETRON 4 MG/2 ML (SDV) Z0FRAN ONE ×2 (10:42→20:25)
[2022-06-14] MEDS ORDERED: LIDOCAINE PF 2% 5 ML (XYLOCAINE) VIAL ONE (10:42)
[2022-06-14] MEDS ORDERED: proPOfol 200 MG/20 ML (DIPRIVAN) VIAL IV ONE (10:42)
[2022-06-14] MEDS ORDERED: MIDAZOLAM 2 MG/2 ML (VERSED) VIAL ONE (10:43)
[2022-06-14] MEDS ORDERED: LIDOCAINE/EPI 1%-1:100,000 (XYLOCAINE) 20ML ONE (10:55)
[2022-06-14] MEDS ORDERED: PHENYLEPHRINE 100 MCG/ML 10 ML (ANESTHESIA) SYR ONE ×2 (13:13→17:51)
[2022-06-14] MEDS ORDERED: HYDROmorphone 2 MG/ML VIAL (DILAUDID) ONE (13:23)
[2022-06-14] MEDS ORDERED: PHENYLEPHRINE INJ 10 MG/ML (FOR PYXIS KITS ONLY) ONE (17:50)
[2022-06-14] MEDS ORDERED: SUGAMMADEX 500 MG/5 ML VIAL (BRIDION) IV ONE (17:51)
[2022-06-14] MEDS ORDERED: SEVOFLURANE (ULTANE) 15 ML INHAL SOLN ONE (17:53)
[2022-06-14] MEDS ORDERED: morphine INJ 4 MG/ML 1 ML (VIAL/SYRINGE) IVP PRN (20:00)
--- NOTE | 2022-06-14 20:06 | Progress Note-Post Operative ---
Post-Operative Progess Note Surgeon (s)/Cardroom Manager (s) Surgeon RA NEAL DO Cardroom Manager: Josue Pre-Operative Diagnosis Incarcerated Incisional/Ventral hernia Post-Operative Diagnosis same measured appx 16cm defect Procedure & Operative Findings Date of Procedure 06/14/22 Procedure Performed/Findings Laparoscopic Ventral Herniarraphy with mesh placement Myocutaneous muscle flap for fascial release Anesthesia Type GET Estimated Blood Loss Estimated blood loss (mL): appx 150ml Specimens/Packing Specimens Removed none RA NEAL DO Jun 14, 2022 20:06
[2022-06-14] MEDS ORDERED: NS IV 500 ML 500 ML IV PRN (20:30)
[2022-06-14] MEDS: ONDANSETRON 4 MG/2 ML (SDV) Z0FRAN IVP PRN (20:32)
[2022-06-14] MEDS: LACTATED RINGERS 1,000 ML IV SCH (20:32)
[2022-06-14] MEDS: ACETAMINOPHEN 500 MG TAB (TYLENOL) PO SCH (21:41)
--- NOTE | 2022-06-14 21:48 | Tele-ICU Progress Note ---
Progress Note 66F with encarcerated ventral hernia s/p robotic laproscopic hernia repair surgery. Planned procedure, no immediate complications. She was extubated during recovery and weaned to 4L NC. Did take a bit long to extubate but has been doing well since that time. Monitoring overnight in ICU per anesthesia recommendation. Patient assessed via real-time audiovisual communication system. CCT 2 min Focused Exam Height, Weight, BMI Height: 5'3.00" Weight: 170lbs. 8.0oz. [id number]; 31.95 BMI Method:Stated ANDREW HARRINGTON MD Jun 14, 2022 21:48
[2022-06-15] MEDS: ACETAMINOPHEN 500 MG TAB (TYLENOL) PO SCH (04:13)
[2022-06-15] MEDS: LACTATED RINGERS 1,000 ML IV SCH ×2 (04:15→11:03)
[2022-06-15 05:43] LABS: BASOPHILS % (AUTO) 0 % (0-10); EOSINOPHILS % (AUTO) 0 % (0-10); HEMATOCRIT 38 % (35-52); HEMOGLOBIN 12.6 g/dL (11.5-16.0); LYMPHOCYTES # (AUTO) 1.1 10^3/uL (1.0-4.0); LYMPHOCYTES % (AUTO) 14 % (12-44); MEAN CORPUSCULAR HEMOGLOBIN 31 pg (25-34); MEAN CORPUSCULAR HGB CONC 33 g/dL (32-36); MEAN CORPUSCULAR VOLUME 94 fL (80-99); MEAN PLATELET VOLUME 10.3 fL (9.0-12.2); MONOCYTES % (AUTO) 12 % (0-12); NEUTROPHILS # (AUTO) 6.1 10^3/uL (1.8-7.8); NEUTROPHILS % (AUTO) 74 % (42-75); PLATELET COUNT 282 10^3/uL (130-400); WHITE BLOOD COUNT 8.2 10^3/uL (4.3-11.0)
[2022-06-15 05:48] LABS: POTASSIUM 3.7 MMOL/L (3.6-5.0)
[2022-06-15 05:49] LABS: CALCIUM 8.7 MG/DL (8.5-10.1)
[2022-06-15 05:51] LABS: TOTAL PROTEIN 6.4 GM/DL (6.4-8.2)
[2022-06-15 05:53] LABS: BILIRUBIN,TOTAL 0.4 MG/DL (0.1-1.0)
[2022-06-15 05:54] LABS: CREATININE SERUM 0.81 MG/DL (0.60-1.30); PHOSPHORUS 3.8 MG/DL (2.3-4.7)
[2022-06-15 05:57] LABS: MAGNESIUM 1.8 MG/DL (1.6-2.4)
[2022-06-15] MEDS ORDERED: POTASSIUM CL 10MEQ/50ML IVPB 50 ML IV SCH (06:00)
[2022-06-15] MEDS ORDERED: MAGNESIUM 1 GM/100 ML IVPB 100 ML IV SCH (06:00)
[2022-06-15] MEDS ORDERED: KCL 20 MEQ TAB (K-DUR) PO SCH ×2 (06:00→08:00)
[2022-06-15] MEDS: amLODIPine 5 MG (NORVASC) TAB PO SCH (08:03)
[2022-06-15] MEDS: clonazePAM 0.5 MG (KlonoPIN) TAB PO SCH (08:04)
[2022-06-15] MEDS: VENlafaxine XR 75 MG (EFFEXOR XR) CAP PO SCH (08:04)
[2022-06-15] MEDS: busPIRone 5 MG (BUSPAR) TAB PO SCH (08:04)
[2022-06-15] MEDS: GEMFIBROZIL 600 MG (LOPID) TAB PO SCH (08:04)
[2022-06-15] MEDS: LOSARTAN 25 MG (COZAAR) TAB PO SCH (08:04)
[2022-06-15] MEDS: FUROSEMIDE 20 MG (LASIX) TAB PO SCH (08:05)
[2022-06-15] MEDS: LEVOTHYROXINE 100 MCG (LEVOTHROID) TAB PO SCH (08:05)
--- NOTE | 2022-06-15 08:06 | Progress Note - Surgery ---
CATARINO GROVE 06/15/22 0806: Subjective Date Seen by a Provider: Jun 15, 2022 Time Seen by a Provider: 08:01 Subjective/Events-last exam 66 F s/p robot assisted eTEP for a ventral hernia repair by Dr. Hermosillo POD 1 reports she is a minimal amount of pain. Rated 3/10 described as a diffuse ache across the abdomen. Worse with movement. better with rest. States she has a mild amount of associated nausea but no emesis. Has not had a BM or passed flatus since procedure. Khan in place. Pt denies fever, chills, SOB, CP, or urinary complaints. Tolerating liquids w/o complaints. Review of Systems General: No Chills, No Night Sweats HEENT: No Head Aches, No Dysphasia Pulmonary: No Dyspnea, No Cough Cardiovascular: No: Chest Pain, Palpitations Gastrointestinal: Nausea, Abdominal Pain; No: Vomiting Genitourinary: No Dysuria, No Frequency Musculoskeletal: No: back pain, leg pain Neurological: No: Weakness, Confusion Objective Exam Vital Signs Date Time Temp Pulse Resp B/P (MAP) Pulse Ox O2 Delivery O2 Flow Rate FiO2 06/15/22 07:54 Nasal Cannula 2.00 06/15/22 07:48 37.1 06/15/22 07:06 98 06/15/22 06:00 103 94 Nasal Cannula 4.00 06/15/22 05:00 102 122/90 (101) 97 Nasal Cannula 4.00 06/15/22 04:00 96 Nasal Cannula 4.00 06/15/22 04:00 105 146/96 (113) 98 Nasal Cannula 4.00 06/15/22 04:00 36.5 06/15/22 03:00 106 143/92 (109) 97 Nasal Cannula 4.00 06/15/22 02:00 105 143/95 (111) 97 Nasal Cannula 4.00 06/15/22 01:00 106 126/98 (107) 97 Nasal Cannula 4.00 06/15/22 01:00 108 06/15/22 00:00 36.3 06/15/22 00:00 109 124/92 (103) 97 Nasal Cannula 4.00 06/14/22 21:00 96 Nasal Cannula 4.00 06/14/22 20:45 112 146/83 (104) 97 Nasal Cannula 4.00 06/14/22 20:15 109 150/88 (108) 96 Nasal Cannula 4.00 06/14/22 20:05 36.3 06/14/22 20:00 113 137/100 (112) 95 Nasal Cannula 4.00 06/14/22 19:45 108 156/105 (122) 95 Nasal Cannula 4.00 06/14/22 19:30 36.6 112 20 137/100 (112) 95 Nasal Cannula 4.00 06/14/22 19:20 Nasal Cannula 4.00 06/14/22 19:16 108 06/14/22 19:10 36.4 14 161/117 (132) 93 Nasal Cannula 4.00 06/14/22 19:05 Nasal Cannula 4.00 06/14/22 19:00 22 156/100 (118) 96 Face Tent 10.00 06/14/22 18:50 18 158/126 (137) 96 Face Tent 10.00 06/14/22 18:50 Face Tent 10.00 06/14/22 18:40 18 149/111 (124) 95 Face Tent 10.00 06/14/22 18:35 T Piece 10.00 06/14/22 18:30 21 147/104 (118) 96 T Piece 10.00 06/14/22 18:21 24 162/105 (124) 99 T Piece 10.00 06/14/22 18:19 37.1 14 162/105 (124) 99 T Piece 10.00 06/14/22 18:19 T Piece 10.00 06/14/22 10:00 36.8 91 20 154/101 (118) 96 Room Air 06/14/22 09:25 96 Room Air I & O 06/15/22 07:00 Intake Total 3910 ml Output Total 750 ml Balance 3160 ml Capillary Refill : General Appearance: No Apparent Distress, WD/WN HEENT: PERRL/EOMI, Moist Mucous Membranes Neck: Non Tender; No Lymphadenopathy (L), No Lymphadenopathy (R) Respiratory: Chest Non Tender, Lungs Clear, No Accessory Muscle Use, No Respiratory Distress Cardiovascular: Regular Rate, Rhythm, No Murmur Peripheral Pulses: 2+ Dorsalis Pedis (R), 2+ Left Dors-Pedis (L), 2+ Radial Pulses (R), 2+ Radial Pulses (L) Gastrointestinal: soft, no organomegaly, no pulsatile mass, abnormal bowel sounds (hypoactive x 4); No distended; other (non-tender on light palaption, mild discomfort on deep palpation. Inscisions c/d/i w/o signs of acute infection) Extremity: Non Tender, Pedal Edema (1+ ) Neurologic/Psychiatric: Alert, Oriented x3, Normal Mood/Affect Skin: Normal Color, Warm/Dry Lymphatic: Other (no cervical, axillary, or inguinal LAD ) Results Lab Laboratory Tests 06/15/22 04:36: White Blood Count 8.2, Red Blood Count 4.01, Hemoglobin 12.6, Hematocrit 38, Mean Corpuscular Volume 94, Mean Corpuscular Hemoglobin 31, Mean Corpuscular Hemoglobin Concent 33, Red Cell Distribution Width 13.2, Platelet Count 282, Mean Platelet Volume 10.3, Immature Granulocyte % (Auto) 1, Neutrophils (%) (Auto) 74, Lymphocytes (%) (Auto) 14, Monocytes (%) (Auto) 12, Eosinophils (%) (Auto) 0, Basophils (%) (Auto) 0, Neutrophils # (Auto) 6.1, Lymphocytes # (Auto) 1.1, Monocytes # (Auto) 1.0, Eosinophils # (Auto) 0.0, Basophils # (Auto) 0.0, Immature Granulocyte # (Auto) 0.0, Sodium Level 139, Potassium Level 3.7, Chloride Level 106, Carbon Dioxide Level 23, Anion Gap 10, Blood Urea Nitrogen 17, Creatinine 0.81, Estimat Glomerular Filtration Rate 79, BUN/Creatinine Ratio 21, Glucose Level 117H, Calcium Level 8.7, Phosphorus Level 3.8, Magnesium Level 1.8, Total Bilirubin 0.4, Aspartate Amino Transf (AST/SGOT) 21, Alanine Aminotransferase (ALT/SGPT) 14, Alkaline Phosphatase 92, Total Protein 6.4 Assessment/Plan Assessment/Plan Assessment/Plan s/p robot assisted eTEC for ventral hernia repair POD 1 abdominal pain nausea continue IVF fluids and proper pain control increase ambulation today to walks around unit start ICS zofran PRN stool softeners PRN MATTHEW HERMOSILLO DO 06/15/22 1101: Subjective Time Seen by a Provider: 10:04 Subjective/Events-last exam Pt seen and examined, states she is doing well. Pain is controlled and she is tolerating clears. Review of Systems General: No Chills, No Night Sweats Pulmonary: No Dyspnea, No Cough Cardiovascular: No: Chest Pain, Palpitations Gastrointestinal: Nausea, Abdominal Pain; No: Vomiting Objective Exam General Appearance: No Apparent Distress, Obese HEENT: PERRL/EOMI, Moist Mucous Membranes Respiratory: Chest Non Tender, Lungs Clear, Normal Breath Sounds, No Accessory Muscle Use, No Respiratory Distress Cardiovascular: Regular Rate, Rhythm, No Murmur Gastrointestinal: soft, abnormal bowel sounds (hypoactive x 4); No distended; other (non-tender on light palaption, mild discomfort on deep palpation. Insci sions c/d/i w/o signs of acute infection) Extremity: Non Tender, Pedal Edema (1+ ) Neurologic/Psychiatric: Alert, Oriented x3, Normal Mood/Affect Assessment/Plan Assessment/Plan Assessment/Plan S/P robot assisted eTEC for ventral hernia repair POD 1 Hypomagnesemia - per new protocol Hyperglycemia - mild Continue IVF fluids, change to soft diet, D/C morphine and tylenol; will switch to Vicodin Increase ambulation today to walks around unit and IS use, anti-emetics as needed Supervisory-Addendum Brief Verification & Attestation Participated in pt care: history, MDM, physical Personally performed: exam, history, MDM, supervision of care Care discussed with: Medical Student Procedures: n/a Verification and Attestation of Medical Student E/M Service A medical student performed and documented this service. I then reviewed and verified all information documented by the medical student and made modifications to such information, when appropriate. I personally performed a physical exam, medical decision making and then discussed any differences between the notes and made revisions as necessary to create one note. Matthew Hermosillo , 06/15/22 , 11:01 CATARINO GROVE Jun 15, 2022 08:06 MATTHEW HERMOSILLO DO Jun 15, 2022 11:01
[2022-06-15] MEDS: MAGNESIUM 1 GM/100 ML IVPB 100 ML IV SCH ×4 (08:09→11:02)
[2022-06-15 08:15] LABS: ALBUMIN 3.3 GM/DL (3.2-4.5)
[2022-06-15] MEDS ORDERED: BIOTIN PO SCH (09:00)
[2022-06-15] MEDS ORDERED: MULTIVIT MIN PO SCH (09:00)
[2022-06-15] MEDS ORDERED: [UNRECOGNIZED DRUG - OTHER] PO SCH (09:00)
[2022-06-15] MEDS ORDERED: PANTOPRAZOLE 40 MG (PROTONIX) VIAL IVP SCH (09:00)
[2022-06-15] MEDS ORDERED: FOLIC ACID PO SCH (09:00)
--- NOTE | 2022-06-15 09:55 | Tele-ICU Progress Note ---
Subjective Date Seen by a Provider: Jun 15, 2022 Time Seen by a Provider: 09:55 Subjective/Events-last exam (Tele-ICU Physician , Progress Note ) Service provided via interactive audio and video telecommunications E-CARE system to a patient admitted to ICU bed in [facility]. Patient is seen today due to persistent need of ICU care Available chart/ vitals / labs / Images reviewed Video assessment done using teleICU camera, rest of exam as per RN Discussed with RN Events overnight : Afebrile hemodynamically stable Respiratory - 4l I/O = + Drips: Pressors- no Hospital course: 66F with encarcerated ventral hernia s/p robotic laproscopic hernia repair surgery. Planned procedure, no immediate complications. - as per sx - pain control post op ventilated in ICU , She was extubated during recovery and weaned to 4L NC. - CPM LINDA - not using CPAP at home , monitor at [facility] tachycardia - cont IVF , pain control Lines : , (Central Line Necessity Reviewed) Khan: OG: Nutrition: Analgesia: Anxiety/ delirium VTE Prophylaxis: scd , start lovenoc wjhen ok with Sx Stress Ulcer Prophylaxis: ppi Plans in collaboration with bedside consultants and IM MDs. Discussed with RN to reach out if any questions or concerns A total of 10 minutes of critical care time was devoted to this patient today, required to treat and/or prevent further deterioration of critical care condition ( as above ) . I am remotely monitoring this patient from another state. I am unable to do the bedside exam, and history/physical and pertinent information is taken from other notes in the computer and bedside staff. . Sepsis Event Evaluation Height, Weight, BMI Height: 5'3.00" Weight: 170lbs. 8.0oz. 77.198728to; 31.95 BMI Method:Stated Exam Exam Patient acknowledged, consented, and participated in this virtual visit which was conducted using real time audio/video Vital Signs Date Time Temp Pulse Resp B/P (MAP) Pulse Ox O2 Delivery O2 Flow Rate FiO2 06/15/22 09:00 105 135/77 (96) 96 Nasal Cannula 2.00 06/15/22 08:00 101 143/91 (108) 95 Nasal Cannula 2.00 06/15/22 07:54 Nasal Cannula 2.00 06/15/22 07:48 37.1 3/30/23 07:45 108 157/91 (113) 97 Nasal Cannula 4.00 06/15/22 07:06 98 06/15/22 06:00 103 94 Nasal Cannula 4.00 06/15/22 05:00 102 122/90 (101) 97 Nasal Cannula 4.00 06/15/22 04:00 96 Nasal Cannula 4.00 06/15/22 04:00 105 146/96 (113) 98 Nasal Cannula 4.00 06/15/22 04:00 36.5 06/15/22 03:00 106 143/92 (109) 97 Nasal Cannula 4.00 06/15/22 02:00 105 143/95 (111) 97 Nasal Cannula 4.00 06/15/22 01:00 106 126/98 (107) 97 Nasal Cannula 4.00 06/15/22 01:00 108 06/15/22 00:00 36.3 06/15/22 00:00 109 124/92 (103) 97 Nasal Cannula 4.00 06/14/22 21:00 96 Nasal Cannula 4.00 06/14/22 20:45 112 146/83 (104) 97 Nasal Cannula 4.00 06/14/22 20:15 109 150/88 (108) 96 Nasal Cannula 4.00 06/14/22 20:05 36.3 06/14/22 20:00 113 137/100 (112) 95 Nasal Cannula 4.00 06/14/22 19:45 108 156/105 (122) 95 Nasal Cannula 4.00 06/14/22 19:30 36.6 112 20 137/100 (112) 95 Nasal Cannula 4.00 06/14/22 19:20 Nasal Cannula 4.00 06/14/22 19:16 108 06/14/22 19:10 36.4 14 161/117 (132) 93 Nasal Cannula 4.00 06/14/22 19:05 Nasal Cannula 4.00 06/14/22 19:00 22 156/100 (118) 96 Face Tent 10.00 06/14/22 18:50 18 158/126 (137) 96 Face Tent 10.00 06/14/22 18:50 Face Tent 10.00 06/14/22 18:40 18 149/111 (124) 95 Face Tent 10.00 06/14/22 18:35 T Piece 10.00 06/14/22 18:30 21 147/104 (118) 96 T Piece 10.00 06/14/22 18:21 24 162/105 (124) 99 T Piece 10.00 06/14/22 18:19 37.1 14 162/105 (124) 99 T Piece 10.00 06/14/22 18:19 T Piece 10.00 06/14/22 10:00 36.8 91 20 154/101 (118) 96 Room Air I & O 06/15/22 07:00 Intake Total 3910 ml Output Total 750 ml Balance 3160 ml Height & Weight Height: 5'3.00" Weight: 170lbs. 8.0oz. 77.104279ui; 31.95 BMI Method:Stated General Appearance: No Apparent Distress, WD/WN HEENT: PERRL/EOMI, Moist Mucous Membranes Neck: Non Tender; No Lymphadenopathy (L), No Lymphadenopathy (R) Respiratory: Chest Non Tender, Lungs Clear, No Accessory Muscle Use, No Respiratory Distress Cardiovascular: Regular Rate, Rhythm, No Murmur Peripheral Pulses: 2+ Dorsalis Pedis (R), 2+ Left Dors-Pedis (L), 2+ Radial Pulses (R), 2+ Radial Pulses (L) Gastrointestinal: soft, no organomegaly, no pulsatile mass, abnormal bowel sounds (hypoactive x 4); No distended; other (non-tender on light palaption, mild discomfort on deep palpation. Inscisions c/d/i w/o signs of acute infection) Extremity: Non Tender, Pedal Edema (1+ ) Neurologic/Psychiatric: Alert, Oriented x3, Normal Mood/Affect Skin: Normal Color, Warm/Dry Lymphatic: Other (no cervical, axillary, or inguinal LAD ) Results Lab Laboratory Tests 06/15/22 04:36 Assessment/Plan Assessment/Plan 1 OSIEL ANN MD Jun 15, 2022 09:55
[2022-06-15] MEDS: HYDROcodone/APAP 5 MG/325 MG (LORTAB) TAB PO PRN ×2 (11:26→20:46)
[2022-06-15] MEDS ORDERED: LACT1CAP62 PO (11:44)
[2022-06-15] MEDS ORDERED: GLUC-219 PO (11:44)
[2022-06-15 12:41] VITALS: BP 134/82
[2022-06-15] MEDS: ONDANSETRON 4 MG/2 ML (SDV) Z0FRAN IVP PRN (12:47)
--- NOTE | 2022-06-15 13:28 | Anesthesia-General Post-Op ---
General Patient Condition Mental Status/LOC: Same as Preop Cardiovascular: Satisfactory Nausea/Vomiting: Absent Respiratory: Satisfactory Pain: Controlled Complications: Absent Post Op Complications Complications None Follow Up Care/Instructions Patient Instructions None needed. Anesthesia/Patient Condition Patient Condition Patient is doing well, no complaints, stable vital signs, no apparent adverse anesthesia problems. No complications reported per nursing. LEONILA DAVENPORT CRNA Jun 15, 2022 13:28
[2022-06-15 15:43] VITALS: BP 149/92
[2022-06-15 19:13] VITALS: BP 144/96
[2022-06-15 23:40] VITALS: BP_SYST 157; BP_SYST 160; BP_DIAS 103; BP_DIAS 90
[2022-06-16] MEDS: HYDROcodone/APAP 5 MG/325 MG (LORTAB) TAB PO PRN (02:20)
[2022-06-16 03:26] VITALS: BP 152/99
[2022-06-16] MEDS: LEVOTHYROXINE 100 MCG (LEVOTHROID) TAB PO SCH (06:43)
[2022-06-16] MEDS ORDERED: MULTIVIT W/MINERALS TAB (THERAGRAN M) PO SCH (07:00)
[2022-06-16 07:46] VITALS: BP 168/90
[2022-06-16] MEDS: amLODIPine 5 MG (NORVASC) TAB PO SCH (08:00)
[2022-06-16] MEDS: VENlafaxine XR 75 MG (EFFEXOR XR) CAP PO SCH (08:00)
[2022-06-16] MEDS: busPIRone 5 MG (BUSPAR) TAB PO SCH (08:00)
[2022-06-16] MEDS: FUROSEMIDE 20 MG (LASIX) TAB PO SCH (08:00)
[2022-06-16] MEDS: GEMFIBROZIL 600 MG (LOPID) TAB PO SCH (08:00)
[2022-06-16] MEDS: LOSARTAN 25 MG (COZAAR) TAB PO SCH (08:00)
[2022-06-16] MEDS ORDERED: PANTOPRAZOLE 40 MG (PROTONIX) TAB PO SCH (09:00)
[2022-06-16] MEDS: clonazePAM 0.5 MG (KlonoPIN) TAB PO SCH (09:17)
[2022-06-16 11:10] VITALS: BP 188/85
--- NOTE | 2022-06-16 11:13 | Physical Therapy Evaluation ---
PT Evaluation-General Medical Diagnosis Admission Date Jun 14, 2022 at 09:12 Medical Diagnosis: Ventral hernia repair Onset Date: Jun 15, 2022 Therapy Diagnosis Therapy Diagnosis: Gait deficit, strength deficit Height/Weight Height (Feet): 5 Height (Inches): 3.00 Weight (Pounds): 170 Weight (Ounces): 8.0 Precautions Precautions/Isolations: Fall Prevention, Standard Precautions Weight Bear Status Right Lower Extremity: Right Full Weight Bearing Left Lower Extremity: Left Full Weight Bearing Referral Physician: Dr. Hermosillo Reason for Referral: Evaluation/Treatment Medical History Reviewed History: Yes Social History Home: Apartment Current Living Status: Alone Entry Into Home: Level Entry Prior Prior Level of Function SCALE: Activities may be completed with or without assistive devices. 9-Bcgzyxvbft-wldtwhm completes the activity by him/herself with no assistance from a helper. 5-Set-up or Clean-up Assistance-helper sets up or cleans up; patient completes activity. Randolph assists only prior to or following the activity. 4-Supervision or Touching Assistance-helper provides verbal cues and/or touching/steadying and/or contact guard assistance as patient completes activity. Assistance may be provided throughout the activity or intermittently. 3-Partial/Moderate Assistance-helper does LESS THAN HALF the effort. Randolph lifts, holds or supports trunk or limbs, but provides less than half the effort. 2-Substantial/Maximal Assistance-helper does MORE THAN HALF the effort. Randolph lifts or holds trunk or limbs and provides more than half the effort. 8-Qsocrepwj-zfqwah does ALL the effort. Patient does none of the effort to complete the activity. Or, the assistance of 2 or more helpers is required for the patient to complete the activity. If activity was not attempted, code reason: 7-Patient Refused. 9-Not Applicable-not attempted and the patient did not perform the activity before the current illness, exacerbation or injury. 10-Not Attempted due to Environmental Limitations-(lack of equipment, weather restraints, etc.). 88-Not Attempted due to Medical Conditions or Safety Concerns. Bed Mobility: 6 Transfers (B,C,W/C): 6 Gait: 6 Stairs: 6 Indoor Mobility (Ambulation): Independent Stairs: Independent Prior Devices Use: None PT Evaluation-Current Subjective Patient sitting in chair upon PT arrival, agreeable to treatment. Reports she did require some assistance from nursing staff when getting out of bed. Patient rates pain currently at 5/10 in her abdomen. Objective Patient Orientation: Person, Place, Time, Situation Attachments: IV ROM/Strength ROM Lower Extremities WFLs all planes BLEs Strength Lower Extremities 3+/5 all planes BLEs Sensory Vision: Wears Glasses Hearing: Functional Sensation Right Lower Extremit: Intact Sensation Left Lower Extremity: Intact Transfers Roll Left to Right (QC): 3 Sit to Lying (QC): 3 Lying to Sitting/Side of Bed(Q: 3 Sit to Stand (QC): 3 Chair/Guw-tl-Rjtyu Xfer(QC): 4 Toilet Transfer (QC): 4 Gait Does the Patient Walk?: Yes Mode of Locomotion: Walk Anticipated Mode of Locomotion: Walk Walk 10 feet (QC): 4 Walk 50 ft with 2 Turns(QC): 4 Walk 150 ft (QC): 4 Distance: 250 Gait Assistive Device: FWW Balance Sitting Static: Good Sitting Dynamic: Good Standing Static: Fair Standing Dynamic: Fair Assessment/Needs Patient tolerated treatment well. Requires min/mod A fro bed mobility and transfers, however once on her feet balance is better with SBA for safety. LE strength is most likely due to recent surgery and not true strength deficit. Patient ambulates 250 feet with FWW, with SBA and verbal cues for safety pr ogression, posture and conservation of energy. Patient in chair post treatment with all needs met, nursing notified, call light in hand. Rehab Potential: Good PT Half-Way Goals Product Sales Representative Goals PT Half-Way Goals Time Frame: Jul 15, 2022 Roll Left & Right (QC): 6 Sit to Lying (QC): 6 Lying-Sitting on Side/Bed(QC): 6 Sit to Stand (QC): 6 Chair/Zkj-fm-Tfifd Xfer(QC): 6 Does the Patient Walk: Yes Walk 10 feet (QC): 6 Walk 50ft with 2 Turns (QC): 6 Walk 150 ft (QC): 6 PT Plan Problem List Problem List: Activity Tolerance, Functional Strength, Safety, Balance, Gait, Transfer, Bed Mobility, ROM Treatment/Plan Treatment Plan: Continue Plan of Care Treatment Plan: Bed Mobility, Education, Functional Activity Tony, Functional Strength, Group Therapy, Gait, Safety, Therapeutic Exercise, Transfers Treatment Duration: Jul 15, 2022 Frequency: 6 times per week Estimated Hrs Per Day: .25 hour per day Patient and/or Family Agrees t: Yes Safety Risks/Education Patient Education: Gait Training, Transfer Techniques Teaching Recipient: Patient Teaching Methods: Demonstration, Discussion Response to Teaching: Verbalize Understanding, Return Demonstration Time Time In: 1005 Time Out: 1020 DATE: Jun 16, 2022 Total Billed Treatment Time: 15 Total Billed Treatment Visit, RADHA BANKS PT Jun 16, 2022 11:13
[2022-06-16 11:34] LABS: BASOPHILS % (AUTO) 1 % (0-10); EOSINOPHILS # (AUTO) 0.2 10^3/uL (0.0-0.3); EOSINOPHILS % (AUTO) 2 % (0-10); HEMATOCRIT 37 % (35-52); HEMOGLOBIN 12.2 g/dL (11.5-16.0); LYMPHOCYTES # (AUTO) 0.8 10^3/uL (1.0-4.0); LYMPHOCYTES % (AUTO) 10 % (12-44); MEAN CORPUSCULAR HEMOGLOBIN 31 pg (25-34); MEAN CORPUSCULAR HGB CONC 33 g/dL (32-36); MEAN CORPUSCULAR VOLUME 94 fL (80-99); MEAN PLATELET VOLUME 10.2 fL (9.0-12.2); MONOCYTES # (AUTO) 0.9 10^3/uL (0.0-1.0); MONOCYTES % (AUTO) 11 % (0-12); NEUTROPHILS # (AUTO) 6.5 10^3/uL (1.8-7.8); NEUTROPHILS % (AUTO) 77 % (42-75); PLATELET COUNT 157 10^3/uL (130-400); WHITE BLOOD COUNT 8.5 10^3/uL (4.3-11.0)
[2022-06-16 11:44] LABS: SMEAR SCAN COMMENT YES
--- NOTE | 2022-06-16 13:16 | Progress Note - Surgery ---
Subjective Time Seen by a Provider: 12:39 Subjective/Events-last exam Pt seen and examined, sitting up in chair. She is tolerating her soft diet and says pain is controlled. When asked, she said she is ready to go home. She is off the O2. Review of Systems General: No Chills, No Night Sweats Pulmonary: No Dyspnea, No Cough Cardiovascular: No: Chest Pain, Palpitations Gastrointestinal: Abdominal Pain; No: Nausea, Vomiting Objective Exam Vital Signs Date Time Temp Pulse Resp B/P (MAP) Pulse Ox O2 Delivery O2 Flow Rate FiO2 06/16/22 11:10 36.5 98 20 188/85 (119) 91 Room Air 06/16/22 08:48 Nasal Cannula 1.50 06/16/22 07:46 36.3 102 20 168/90 (116) 91 Nasal Cannula 2.00 06/16/22 03:26 36.9 100 18 152/99 (116) 93 Nasal Cannula 1.50 1.50 06/15/22 23:40 37.4 97 18 160/90 (113) 94 Nasal Cannula 1.50 1.50 06/15/22 21:00 Nasal Cannula 1.50 06/15/22 19:13 36.8 95 18 144/96 (112) 94 Nasal Cannula 1.50 06/15/22 15:43 36.9 93 16 149/92 (111) 97 Nasal Cannula 1.50 I & O 06/16/22 07:00 Intake Total 2452 ml Output Total 2000 ml Balance 452 ml Capillary Refill : General Appearance: No Apparent Distress, Obese HEENT: PERRL/EOMI, Moist Mucous Membranes Respiratory: Chest Non Tender, Lungs Clear, Normal Breath Sounds, No Accessory Muscle Use, No Respiratory Distress Cardiovascular: Regular Rate, Rhythm, No Murmur Peripheral Pulses: 2+ Dorsalis Pedis (R), 2+ Left Dors-Pedis (L), 2+ Radial Pulses (R), 2+ Radial Pulses (L) Gastrointestinal: soft; No distended; other (Incisions c/d/i, abd binder in place) Extremity: Non Tender, Pedal Edema (1+ ) Neurologic/Psychiatric: Alert, Oriented x3, Normal Mood/Affect Skin: Warm/Dry Results Lab Laboratory Tests 06/16/22 11:25: White Blood Count 8.5, Red Blood Count 3.93, Hemoglobin 12.2, Hematocrit 37, Mean Corpuscular Volume 94, Mean Corpuscular Hemoglobin 31, Mean Corpuscular Hemoglobin Concent 33, Red Cell Distribution Width 13.0, Platelet Count 157, Mean Platelet Volume 10.2, Immature Granulocyte % (Auto) 0, Neutrophils (%) (Auto) 77H, Lymphocytes (%) (Auto) 10L, Monocytes (%) (Auto) 11, Eosinophils (%) (Auto) 2, Basophils (%) (Auto) 1, Neutrophils # (Auto) 6.5, Lymphocytes # (Auto) 0.8L, Monocytes # (Auto) 0.9, Eosinophils # (Auto) 0.2, Basophils # (Auto) 0.0, Immature Granulocyte # (Auto) 0.0, Smear Scan YES Microbiology 06/14/22 MRSA Screen - Final, Complete MRSA not isolated Assessment/Plan Assessment/Plan Assessment/Plan S/P robot assisted eTEC for ventral hernia repair POD 1 Hypertension Hypothyroid Hyperglycemia - mild Pt is doing very well, we discussed her movements and restrictions. She will be discharged home; told to use IS and continue ambulating multiple times daily. All questions answered to her satisfaction. RA NEAL DO Jun 16, 2022 13:16
[2022-06-16] MEDS ORDERED: ACHD5005 PO (13:18)
--- NOTE | 2022-06-16 13:21 | Discharge Inst-Surgical ---
Discharge Inst-Surgical Depart Medication/Instructions New, Converted or Re-Newed RX: Transmitted to Pharmacy Patient Instructions Follow up Appt: Make appointment for 1 week. [phone] Instructions: No lifting greater than 20 pounds. No strenuous activity. May shower in 24 hours, no tub bath or soaking. Use incentive spirometer at home as directed. No Smoking Skin/Wound Care: May remove bandages in am. You need to leave the Dermabond on incision it will fall off on it's own. Symptoms to Report: Appetite Changes, Extremity Discoloration, Numbness/Tingling, Swelling Increased, Bleeding Excessive, Eyesight Changes, Pain Increased, Urine Color Change, Constipation(Persistent), Fever over 101 degree F, Pain/Pressure in chest, Urinating Difficulty, Cough Up/Vomit Blood, Heart Beat Irreg/Pounding, Pain/Pressure in jaw, Cramps in feet or legs, Lightheadedness, Pain/Pressure in shoulder, Diarrhea(Persistent), Memory Changes Suddenly, Questions/Concerns, Weight gain consecutive days, Dizziness/Fainting, Nausea/Vomiting, Shortness of Breath, Weight gain over 2 pounds If questions or concerns contact your physician Or seek help at emergency department. Activity Activity as Tolerated: Yes Activity Instructions: Avoid Pulling & Pushing, Avoid Stress to Incision Driving Instructions: No Driving/Refer to Dr. Tyson Discharge Diet: No Restrictions Diet After 24 Hours: Clear Liquid if Nauseous If Any Problems/Questions/Issu: Contact Your Physician, Go to Emergency Room Skin/Wound Care Infection Signs and Symptoms: Increased Redness, Foul Odor of Wound, Increased Drainage, Skin Itchy or Has a Rash, Increased Swelling, Temperature Above 101 F Wound Care Comment: Wear abdominal binder for one month. No lifiting anything over 15 pounds. Try not to do to much bending, twisting or reaching overhead Bathing Instructions: Shower Stitches/[place]/Dermabond Dis: Dermabond RA NEAL DO Jun 16, 2022 13:21
--- NOTE | 2022-06-16 23:23 | OPERATIVE REPORT ---
DATE OF SERVICE: 06/14/2022 PREOPERATIVE DIAGNOSIS: Incarcerated incisional ventral hernia. POSTOPERATIVE DIAGNOSIS: Incarcerated incisional ventral hernia, there was actually two of them, measured about 6 cm wide and total of them together was about 16 cm. PROCEDURE: 1. Robotic eTEP retrorectus Gregor-Stoppa repair for ventral hernia. 2. Myocutaneous abdominal muscle flap with the extended totally extraperitoneal approach. SURGEON: Ra Hermosillo DO INTERACTIVE MEDIA MARKETING SPECIALIST: Ernie Salas DO TYPE OF ANESTHESIA: General endotracheal tube. SPECIMENS: None. COMPLICATIONS: None. ESTIMATED BLOOD LOSS: Approximately 150 mL DESCRIPTION OF PROCEDURE: After informed consent was obtained, the patient was brought to the operating room. She was placed on the table in supine position. She was then sterilely prepped and draped in normal fashion. The bed was flexed just a little bit. We then used an ultrasound prior to prepping to leonila the left rectus muscle and the linea alba, then started in the left upper quadrant, made a small incision after infiltrating with local and then used a 5 mm Visiport. The Glenda Thorntonos Visiport and then directed down towards the posterior rectus sheath trying to get into the retromuscular space using blunt dissection. Unfortunately, this was where one of her large hernias was and we got into the abdomen looked around, did not cause any damage. Elected to go to the right side, again using ultrasound marked out a spot, small incision with a #11 blade and then advanced the Visiport trocar to the retrorectus space, had a hard time finding. The patient had very minimal rectus muscle and we elected to use a second 5 mm 30-degree camera to go from the left side and we could see that we were in the right spot and then went back to the right side and started dissecting down and found the [____] space then insufflated to create a pneumoperitoneum in this place, then started bluntly dissecting under visualization with the camera to create the space to then get the two 8 mm robotic ports in placed. They were placed under direct vision. The camera was then moved to the middle spot and 5 mm switched with another 8 mm trocar camera. The robot was then docked. Laparoscopic instruments were inserted under direct visualization. I then proceeded to the robotic console. The right retromuscular space was then dissected free superiorly and inferiorly to help with a tension-free closure creating these muscle flaps allowing them to relax. Performed this muscular flap on the right, going to the linea alba and then cutting a centimeter away from the linea alba into the preperitoneal space. This was extended superiorly and inferiorly and then dissected across the midline in the upper abdomen. I then worked towards the umbilicus where I encountered a large incarcerated incisional hernia. There was omentum incarcerated through the defect, I was able to then take down this omentum and adhesions and then could see 2 large openings. Pictures were taken. Once I was able to get down and take everything down, I then decided to perform the left sided muscular flap again going just distal to the linea alba about 1 cm getting into the left posterior rectus sheath extending this superiorly and inferiorly starting inferiorly and working my way superiorly to create this muscle flap on the left to again give a space to completely dissect this free. Once I had everything freed up, I then started closing the superior, the linea alba and the incisional hernias closing this fascia with, I used a 180-day V-Loc suture to reapproximate. I had to use three running but not tightening it down and then slowly cinching it down like a corset bringing them together. I actually unfortunately broke the stitch, I had do another stitch, had started one from the top, one from the bottom, had to do another stitch to stitch these together to close this incisional hernia. Once this was closed, I then measured the retromuscular space, it measured about 24 x 15 cm transversely. I used Bard light weight macroporous mesh, cut to fit in there. I then closed the hole in the preperitoneum with a 3-0 V-Loc another one in 180-day V-Loc. I actually used three to close this to close the space. Then, I placed the macroporous mesh, it laid out very nicely. I then carefully allowed the pneumoperitoneum to deflate and watched the mesh stayed in position directly filling up the space completely. I pulled out the upper and lower port, but left the middle port with a camera in. Once I saw that it laid out nicely and closed nicely, I then removed this port. I then closed all incisions with 4-0 Monocryl and Dermabond. A dressing was placed. The patient tolerated the procedure. Sponge and needle count correct at the end of the case. Dr. Salas assisted in this case helping to make incisions, close incisions, identify anatomy, pass suture. Job ID: [id number] DocumentID: [id number] Dictated Date: 06/16/2022 16:23:19 [employer] Date: 06/16/2022 22:33:00 Dictated By: RA HERMOSILLO DO
== END 2022-06-16 13:50 | disposition home or self-care (01) | DRG 355 ==
LOC: EDSTATUS 13:30 → 4TH 06-14 09:12 → SURG 06-14 09:13 → ICU 06-14 19:40 → 4TH 06-15 12:29
PROVIDERS: ADMIT Surgery; ATTEND Surgery
PROC: 0WUF4JZ Supplement Abdominal Wall with Synthetic Substitute, Percutaneous Endoscopic Approach (ICD-10-PCS; principal; 2022-06-14 11:29)
DX: K43.2 Incisional hernia without obstruction or gangrene (principal); M19.90 Unspecified osteoarthritis, unspecified site; Z86.73 Personal history of transient ischemic attack (TIA), and cerebral infarction without residual deficits; G47.33 Obstructive sleep apnea (adult) (pediatric); R00.0 Tachycardia, unspecified; R73.9 Hyperglycemia, unspecified; E83.42 Hypomagnesemia; I10 Essential (primary) hypertension; E03.9 Hypothyroidism, unspecified
CPT/HCPCS: 36415; 80053; 83735; 84100; 85025; 87081